=== PATIENT | male | born 1940 | race Caucasian/White ===

== ENCOUNTER → 2016-10-24 | Outpatient (CLI) | payer MEDICARE ==
--- NOTE | 2016-10-24 14:25 | CT ---
EXAMINATION TYPE: CT abdomen wo con DATE OF EXAM: 10/24/2016 1:44 PM COMPARISON: NONE HISTORY: back pain CT DLP: 343.8 mGycm Automated exposure control for dose reduction was used. TECHNIQUE: Helical acquisition of images was performed from the lung bases through the top of iliac crest to include entire abdomen. CONTRAST: Performed with Oral Contrast and without IV contrast. FINDINGS: LUNG BASES: Calcifications present at the left lung base likely representing granulomas. Parenchymal band present in the right lower lobe. Some minimal dependent atelectatic change. Calcification presen t at the aortic root. No pleural or pericardial effusion. There is likely mitral annular calcificatio n. LIVER/GB: There is no focal mass within the liver. Gallbladder shows some dependent high density with in the neck possibly representing stones. PANCREAS: No significant abnormality is seen. SPLEEN: No significant abnormality is seen. ADRENALS: No significant abnormality is seen. KIDNEYS: No significant abnormality is seen. BOWEL: No significant abnormality is seen. OSSEOUS STRUCTURES: Patient shows posterior fusion change at L4-5 S1, there is artifact due to patie nt's transpedicular screws, there are laminectomies present. Suspect there may be some spinal stenosi s at L3-4. Multilevel spondylosis is present, loss of disc height present at L5-S1, L3-4. Vacuum phen omenon present at L3-4, L2-3. FREE AIR: No Free Air visible ASCITES: None visible. RETROPERITONEAL ADENOPATHY: No Retroperitoneal Adenopathy visible. OTHER: IMPRESSION: POSTOP CHANGES. POSSIBLE SPINAL STENOSIS L3-4. DEGENERATIVE DISC DISEASE. NONCONTRAST EXAM.
== END ==
LOC: RADCTMAIN 12:44
PROVIDERS: ATTEND Family Medicine
DX: R10.9 Unspecified abdominal pain (principal)
CPT/HCPCS: 74150

== ENCOUNTER 2016-11-11 12:11 | Emergency (ER) | payer MEDICARE ==
[2016-11-11 13:07] VITALS: TEMP 98.1
[2016-11-11] MEDS ORDERED: HYDROmorphone 1 MG/ML 1 ML SYRINGE IVP STA ×2 (13:17→14:47)
[2016-11-11] MEDS ORDERED: SODIUM CHLORIDE 0.9% 500 ML IV STA (13:17)
--- NOTE | 2016-11-11 13:24 | ED ---
Back Pain HPI - General Chief Complaint: Back Pain/Injury Stated Complaint: Leg Pain Time Seen by Provider: 11/11/16 13:09 Source: patient, RN notes reviewed Limitations: no limitations - History of Present Illness Initial Comments: 76-year-old male presents to the emergency department with a chief complaint of back pain and leg pain. Patient states he is a diabetic. Patient states he has diabetic neuropathy. Patient states her last today she's had these constant pain to his bilateral lower extremity. Patient states he constantly feels as if he is being stung by bees to bilateral lower feet. Patient states that he took his diabetic medication but this does not seem to resolve the symptoms. Patient states she is also having low back pain. Patient states that in the center of his low back. Patient denies any loss of bowel or bladder function with this. Patient denies any fever or chills. Patient denies any cough cold and runny Nose. Patient states pain radiates into the neck. Patient states that this pain is just causing him For any problems like thought that he should be seen for pain control. Patient denies any nausea vomiting. Patient denies any changes in eating and drinking. Patient denies any other symptoms at this time. Patient denies any recent fever, chills, shortness of breath, chest pain, abdominal pain, nausea vomiting, numbness or tingling, dysuria or hematuria, constipation or diarrhea, headaches or visual changes, or any other current symptoms. - Related Data Home Medications Medication Instructions Recorded Confirmed Enalapril Maleate [Vasotec] 10 mg PO DAILY 09/02/15 11/11/16 Pregabalin [Lyrica] 300 mg PO BID 09/02/15 11/11/16 metFORMIN HCL [metFORMIN HCL ER] 1 tab PO BID 09/02/15 11/11/16 oxyCODONE-APAP 10-325MG [Percocet 1 tab PO Q8H PRN 09/02/15 11/11/16 10-325 mg] Amoxicillin/Potassium Clav 1 tab PO Q12HR 11/11/16 11/11/16 [Augmentin 875-125 Tablet] amLODIPine [Norvasc] 5 mg PO DAILY 11/11/16 11/11/16 Allergies Allergy/AdvReac Type Severity Reaction Status Date / Time No Known Allergies Allergy Verified 11/11/16 13:07 Review of Systems ROS Statement: Those systems with pertinent positive or pertinent negative responses have been documented in the HPI. ROS Other: All systems not noted in ROS Statement are negative. Past Medical History Past Medical History: CVA/TIA, Diabetes Mellitus, Hypertension Additional Past Medical History / Comment(s): Diabetic neuropathy chronic back pain History of Any Multi-Drug Resistant Organisms: None Reported Past Surgical History: Back Surgery Additional Past Surgical History / Comment(s): bilateral cataract removal with implants, right foot surgery Past Anesthesia/Blood Transfusion Reactions: No Reported Reaction Past Psychological History: No Psychological Hx Reported Smoking Status: Never smoker Past Alcohol Use History: None Reported Past Drug Use History: None Reported - Past Family History Mother Family Medical History: No Reported History Father Family Medical History: Cancer General Exam - General Exam Comments Initial Comments: General: The patient is awake and alert, in no distress, and does not appear acutely ill. Eye: Pupils are equal, round and reactive to light, extra-ocular movements are intact; there is normal conjunctiva bilaterally. No signs of icterus. Ears, nose, mouth and throat: There are moist mucous membranes. Neck: The neck is supple, there is no tenderness. Cardiovascular: There is a regular rate and rhythm. No murmur, rub or gallop is appreciated. Respiratory: Lungs are clear to auscultation, respirations are non-labored, breath sounds are equal. No wheezes, stridor, rales, or rhonchi. Gastrointestinal: Soft, non-distended, non-tender abdomen without masses or organomegaly noted. There is no rebound or guarding present. No CVA tenderness. Bowel sounds are unremarkable. Back: There is no tenderness to palpation in the midline. There is no obvious deformity. No rashes noted. Musculoskeletal: Normal ROM, no tenderness, There is no pedal edema. There is no calf tenderness or swelling. Sensation intact except for distal extremities due to neuropathy. Pulses equal bilaterally 2+. Neurological: CN II-XII intact, There are no obvious motor or sensory deficits. Coordination appears grossly intact. Speech is normal. Skin: Skin is warm and dry and no rashes or lesions are noted. Psychiatric: Cooperative, appropriate mood & affect, normal judgment. Limitations: no limitations Course Vital Signs 11/11/16 11/11/16 13:03 13:52 Temperature 98.1 F Pulse Rate 87 79 Respiratory 16 18 Rate Blood Pressure 139/78 123/64 O2 Sat by Pulse 96 94 L Oximetry Medical Decision Making - Medical Decision Making 76-year-old male presents to emergency room chief complaint of back pain. At this time the patient states that he is feeling better. Given another dose medication for the ride home. We did discuss his CAT scan did show lumbar stenosis. We discussed follow-up for this. We discussed return parameters and all the patient's questions. We discussed continuing at home medications. Patient stated that he understood the plan. He will be discharged. - Lab Data Result diagrams: 11/11/16 13:45 11/11/16 13:45 Lab Results 11/11/16 11/11/16 11/11/16 Range/Units 13:45 13:45 13:45 WBC 5.8 (3.8-10.6) k/uL RBC 4.62 (4.30-5.90) m/uL Hgb 14.9 (13.0-17.5) gm/dL Hct 44.5 (39.0-53.0) % MCV 96.3 (80.0-100.0) fL MCH 32.2 (25.0-35.0) pg MCHC 33.4 (31.0-37.0) g/dL RDW 14.4 (11.5-15.5) % Plt Count 137 L (150-450) k/uL Neutrophils % 68 % Lymphocytes % 16 % Monocytes % 9 % Eosinophils % 3 % Basophils % 0 % Neutrophils # 3.9 (1.3-7.7) k/uL Lymphocytes # 0.9 L (1.0-4.8) k/uL Monocytes # 0.5 (0-1.0) k/uL Eosinophils # 0.2 (0-0.7) k/uL Basophils # 0.0 (0-0.2) k/uL Sodium 140 (137-145) mmol/L Potassium 4.3 (3.5-5.1) mmol/L Chloride 105 (98-107) mmol/L Carbon Dioxide 25 (22-30) mmol/L Anion Gap 10 mmol/L BUN 9 (9-20) mg/dL Creatinine 0.57 L (0.66-1.25) mg/dL Est GFR (MDRD) Af Amer >60 (>60 ml/min/1.73 sqM) Est GFR (MDRD) Non-Af >60 (>60 ml/min/1.73 sqM) Glucose 194 H (74-99) mg/dL Calcium 9.9 (8.4-10.2) mg/dL Phosphorus 3.7 (2.5-4.5) mg/dL Magnesium 2.0 (1.6-2.3) mg/dL Total Bilirubin 0.9 (0.2-1.3) mg/dL AST 24 (17-59) U/L ALT 18 L (21-72) U/L Alkaline Phosphatase 83 (38-126) U/L Total Protein 7.2 (6.3-8.2) g/dL Albumin 4.1 (3.5-5.0) g/dL Urine Color Yellow Urine Appearance Clear (Clear) Urine pH 5.5 (5.0-8.0) Ur Specific [place] 1.012 (1.001-1.035) Urine Protein Negative (Negative) Urine Glucose (UA) Negative (Negative) Urine Ketones Negative (Negative) Urine Blood Negative (Negative) Urine Nitrite Negative (Negative) Urine Bilirubin Negative (Negative) Urine Urobilinogen <2.0 (<2.0) mg/dL Ur Leukocyte Esterase Negative (Negative) Disposition Clinical Impression: Lumbar stenosis Disposition: HOME SELF-CARE Condition: Stable Instructions: Chronic Back Pain (ED) Additional Instructions: Please use medication as discussed. Please follow up with family doctor if symptoms have not improved over the next two days. Please return to the emergency room if your symptoms increase or worsen or for any other concerns. Referrals: Be Velasquez DO [Primary Care Provider] - 1-2 days Time of Disposition: 14:48
[2016-11-11 13:54] VITALS: RESP 18
[2016-11-11 14:12] LABS: Basophils % (A) 0 %; CH 32.2; CHCM 33.7; Eosinophils # (A) 0.2 k/uL (0-0.7); Eosinophils % (A) 3 %; HCT 44.5 % (39.0-53.0); HDW 2.69; HGB 14.9 gm/dL (13.0-17.5); Luc # (Auto) 0.24; Luc % (Auto) 4; Lymphocytes # (A) 0.9 k/uL (1.0-4.8); Lymphocytes % (A) 16 %; MCH 32.2 pg (25.0-35.0); MCHC 33.4 g/dL (31.0-37.0); MCV 96.3 fL (80.0-100.0); Mean Platelet Volume 8.2; Monocytes # (A) 0.5 k/uL (0-1.0); Monocytes % (A) 9 %; Neutrophils # (A) 3.9 k/uL (1.3-7.7); Neutrophils % (A) 68 %; RBC 4.62 m/uL (4.30-5.90); RDW 14.4 % (11.5-15.5); WBC 5.8 k/uL (3.8-10.6)
[2016-11-11 14:14] LABS: Appearance,Urine Clear (Clear); Bilirubin,Urine Negative (Negative); Glucose,Urine (UA) Negative (Negative); Ketones,Urine Negative (Negative); Leukocyte Esterase,Urine Negative (Negative); Nitrite,Urine Negative (Negative); PH, Urine 5.5 (5.0-8.0); Protein,Urine Negative (Negative); Specific Gravity,Urine 1.012 (1.001-1.035); UA Billing (MACRO vs. MICRO) CHEM; Urobilinogen,Urine <2.0 mg/dL (<2.0)
[2016-11-11 14:27] LABS: ALT 18 U/L (21-72); AST 24 U/L (17-59); Alkaline Phosphatase 83 U/L (38-126); Anion Gap 10 mmol/L; Blood Urea Nitrogen 9 mg/dL (9-20); Calcium 9.9 mg/dL (8.4-10.2); Carbon Dioxide 25 mmol/L (22-30); Chloride 105 mmol/L (98-107); Glucose 194 mg/dL (74-99); Non-African American GFR(MDRD) >60 (>60 ml/min/1.73 sqM); Phosphorous 3.7 mg/dL (2.5-4.5); Potassium 4.3 mmol/L (3.5-5.1); Sodium 140 mmol/L (137-145); Total Bilirubin 0.9 mg/dL (0.2-1.3); Total Protein 7.2 g/dL (6.3-8.2)
[2016-11-11 15:24] VITALS: BP 135/65; PULSE 68
== END 2016-11-11 15:30 | disposition home or self-care (01) ==
LOC: EC 12:11
DX: M48.06 Spinal stenosis, lumbar region (principal); I10 Essential (primary) hypertension; E11.40 Type 2 diabetes mellitus with diabetic neuropathy, unspecified; Z79.84 Long term (current) use of oral hypoglycemic drugs; Z79.899 Other long term (current) drug therapy; Z98.890 Other specified postprocedural states
CPT/HCPCS: 99284; 96374; 96376; 36415; 80053; 83735; 84100; 85025; 81003; J1170

== ENCOUNTER 2016-12-09 12:04 | Emergency (ER) | payer MEDICARE ==
[2016-12-09 12:52] VITALS: RESP 20
--- NOTE | 2016-12-09 13:46 | ED ---
General Adult HPI - General Chief complaint: Back Pain/Injury Stated complaint: Back/Leg Pain Time Seen by Provider: 12/09/16 13:14 Source: patient, RN notes reviewed Mode of arrival: wheelchair Limitations: physical limitation - History of Present Illness Initial comments: Patient is a 76-year-old male significant past medical history for chronic back pain, who presents emergency room today with chief complaint of exacerbation of his chronic pain. Patient does admit that is been slowly increasing. He states same type pain and symptoms that he's had for a long time. Patient states that he has been following his family doctor. He states that he was told to arthritis round "hardware" that he hasn't his back. Patient states that he had back surgery any years ago. Patient does admit that he's been using Percocet at home for pain with little relief the symptoms lately. Patient does admit that the doctor gave her new prescription but has not come in yet. He is unsure what medication it is. Denies any bowel or bladder incontinence retention. Denies any saddle anesthesia. Patient denies any recent fever, chills, shortness of breath, chest pain, abdominal pain, nausea or vomiting, dysuria or hematuria, constipation or diarrhea, headaches or visual changes, or any other complaints. - Related Data Home Medications Medication Instructions Recorded Confirmed Pregabalin [Lyrica] 300 mg PO BID 09/02/15 12/09/16 oxyCODONE-APAP 10-325MG [Percocet 1 tab PO Q8H PRN 09/02/15 12/09/16 10-325 mg] amLODIPine [Norvasc] 5 mg PO DAILY 11/11/16 12/09/16 Aspirin [Adult Low Dose Aspirin EC] 81 mg PO DAILY 12/08/16 12/09/16 Enalapril Maleate [Vasotec] 5 mg PO DAILY 12/08/16 12/09/16 metFORMIN HCL [Glucophage] 500 mg PO BID 12/08/16 12/09/16 Allergies Allergy/AdvReac Type Severity Reaction Status Date / Time No Known Allergies Allergy Verified 12/09/16 13:37 Review of Systems ROS Statement: Those systems with pertinent positive or pertinent negative responses have been documented in the HPI. ROS Other: All systems not noted in ROS Statement are negative. Past Medical History Past Medical History: CVA/TIA, Diabetes Mellitus, Hypertension Additional Past Medical History / Comment(s): Diabetic neuropathy chronic back pain History of Any Multi-Drug Resistant Organisms: None Reported Past Surgical History: Back Surgery Additional Past Surgical History / Comment(s): bilateral cataract removal with implants, right foot surgery Past Anesthesia/Blood Transfusion Reactions: No Reported Reaction Past Psychological History: No Psychological Hx Reported Smoking Status: Never smoker Past Alcohol Use History: Daily Past Drug Use History: None Reported - Past Family History Mother Family Medical History: No Reported History Father Family Medical History: Cancer General Exam - General Exam Comments Initial Comments: General: The patient is awake and alert, in no distress, and does not appear acutely ill. Eye: Pupils are equal, round and reactive to light, extra-ocular movements are intact. No nystagmus. There is normal conjunctiva bilaterally. No signs of icterus. Ears, nose, mouth and throat: There are moist mucous membranes and no oral lesions. Neck: The neck is supple, there is no tenderness or JVD. Cardiovascular: There is a regular rate and rhythm. No murmur, rub or gallop is appreciated. Respiratory: Lungs are clear to auscultation, respirations are non-labored, breath sounds are equal. No wheezes, stridor, rales, or rhonchi. Gastrointestinal: Soft, non-distended, non-tender abdomen without masses or organomegaly noted. There is no rebound or guarding present. No CVA tenderness. Bowel sounds are unremarkable. Musculoskeletal: Normal ROM, no tenderness. Strength 5/5. Sensation intact. Pulses equal bilaterally 2+. Neurological: A&O x 3. CN II-XII intact, There are no obvious motor or sensory deficits. Coordination appears grossly intact. Speech is normal. Skin: Skin is warm and dry and no rashes or lesions are noted. Psychiatric: Cooperative, appropriate mood & affect, normal judgment. Limitations: physical limitation Course Vital Signs 12/09/16 12:49 Temperature 98.6 F Pulse Rate 73 Respiratory 20 Rate Blood Pressure 124/60 O2 Sat by Pulse 96 Oximetry Medical Decision Making - Medical Decision Making Patient was reviewed are negative for any acute abnormalities. Patient does admit that his chronic pain with no new injury or symptoms today. He states it' s been getting worse. Does use Percocet at home with little relief. Currently at this time. States been following the family doctor did prescribe the medication has not come in yet. Patient was given Lidoderm patch similar symptoms. Shot of Dilaudid discharged home advised follow-up family doctor later this week. Advised return if any symptoms increase or worsen or for any other concerns. She states understanding and is in agreement. Disposition Clinical Impression: Acute exacerbation of chronic low back pain Disposition: HOME SELF-CARE Condition: Good Instructions: Chronic Back Pain (ED) Additional Instructions: Please use medication as discussed. Please follow-up with family doctor in the next 2 days of symptoms have not improved. Please return to emergency room if the symptoms increase or worsen or for any other concerns. Time of Disposition: 14:38
[2016-12-09] MEDS ORDERED: LIDOCAINE 5% PATCH TOPICAL STA (13:52)
--- NOTE | 2016-12-09 14:30 | XR ---
EXAMINATION TYPE: XR lumbar spine 2 or 3V DATE OF EXAM: 12/09/2016 2:07 PM COMPARISON: NONE HISTORY: Pain low back TECHNIQUE: Three-view lumbar spine FINDINGS: Pedicle screws are present L4-L5 and S1. Degenerative disc changes are present L3-4 L2-3. V ertebral body heights are preserved. Alignment is straightened. Vascular calcification is within the aorta. IMPRESSION: 1. Postsurgical changes within the lower lumbar spine. 2. Degenerative disc changes especially noted L3-4.
[2016-12-09] MEDS ORDERED: HYDROmorphone 1 MG/ML 1 ML SYRINGE IM STA (14:39)
[2016-12-09 15:17] VITALS: BP 132/70; PULSE 80; TEMP 97.8
== END 2016-12-09 15:17 | disposition home or self-care (01) ==
LOC: EC 12:04
DX: G89.29 Other chronic pain (principal); M54.5 Low back pain; I10 Essential (primary) hypertension; E11.40 Type 2 diabetes mellitus with diabetic neuropathy, unspecified; Z79.82 Long term (current) use of aspirin; Z79.84 Long term (current) use of oral hypoglycemic drugs; Z79.899 Other long term (current) drug therapy
CPT/HCPCS: 99283; 96372; 72100; J1170

== ENCOUNTER 2016-12-13 09:00 | Day surgery (SDC) | payer MEDICARE ==
[2016-12-08 14:40] VITALS: BMI 21.8
[~2016-12-13 09:00] MED LIST: LACTATED RINGERS 1,000 ML IV SCH; LIDOCAINE 1% 20 ML VIAL (10MG/ML) FOR IV START INTRADERMA PRN
[2016-12-13 09:39] VITALS: TEMP 97.7
[2016-12-13 09:45] LABS: Glucose,Whole Blood 115 mg/dL (75-99)
[2016-12-13] MEDS ORDERED: PROPOFOL 10 MG/ML 20 ML VIAL IV ONE (11:26)
--- NOTE | 2016-12-13 11:27 | P.GSHP ---
History of Present Illness H&P Date: 12/13/16 Chief Complaint: Dysphagia, GERD This is 76-year-old male referred from Dr. Be Estrada. Patient presents today for EGD. The patient's had problems with GERD and dysphagia. - Constitutional Constitutional: Reports as per HPI Past Medical History Past Medical History: CVA/TIA, Diabetes Mellitus, Hypertension Additional Past Medical History / Comment(s): Diabetic neuropathy chronic back pain History of Any Multi-Drug Resistant Organisms: None Reported Past Surgical History: Back Surgery Additional Past Surgical History / Comment(s): bilateral cataract removal with implants, right foot surgery Past Anesthesia/Blood Transfusion Reactions: No Reported Reaction Past Psychological History: No Psychological Hx Reported Smoking Status: Never smoker Past Alcohol Use History: Daily Past Drug Use History: None Reported - Past Family History Mother Family Medical History: No Reported History Father Family Medical History: Cancer Medications and Allergies Home Medications Medication Instructions Recorded Confirmed Type Pregabalin [Lyrica] 300 mg PO BID 09/02/15 12/13/16 History oxyCODONE-APAP 10-325MG [Percocet 1 tab PO Q8H PRN 09/02/15 12/13/16 History 10-325 mg] amLODIPine [Norvasc] 5 mg PO DAILY 11/11/16 12/13/16 History Aspirin [Adult Low Dose Aspirin EC] 81 mg PO DAILY 12/08/16 12/13/16 History Enalapril Maleate [Vasotec] 5 mg PO DAILY 12/08/16 12/13/16 History metFORMIN HCL [Glucophage] 500 mg PO BID 12/08/16 12/13/16 History Allergies Allergy/AdvReac Type Severity Reaction Status Date / Time No Known Allergies Allergy Verified 12/13/16 09:47 Surgical - Exam Vital Signs Temp Pulse Resp BP Pulse Ox 97.7 F 71 16 177/69 97 12/13/16 09:38 12/13/16 09:38 12/13/16 09:38 12/13/16 09:38 12/13/16 09:38 - General well developed, no distress - Eyes PERRL - ENT normal nares - Neck no masses - Respiratory normal expansion - Cardiovascular Rhythm: regular - Abdomen Abdomen: soft, non tender Results - Labs Abnormal Lab Results - Last 24 Hours (Table) 12/13/16 Range/Units 09:43 POC Glucose (mg/dL) 115 H (75-99) mg/dL Assessment and Plan Plan: GERD, indigestion. We'll perform EGD.
--- NOTE | 2016-12-13 11:37 | P.OP ---
Date of Procedure: 12/13/16 Preoperative Diagnosis: GERD Dysphagia Postoperative Diagnosis: Antral gastritis No evidence of hernia Mild esophagitis Procedure(s) Performed: EGD Anesthesia: MAC Surgeon: Saul Crane Pathology: other (Antral, esophagus) Condition: stable Disposition: PACU Description of Procedure: The patient's placed on the endoscopy table in the lateral position. He received IV sedation. The gastroscope some placed oropharynx passed into the esophagus and stomach. Scope was then placed through the pylorus. First and second portion of the duodenum appeared normal. Scope was then brought back the antrum and this appeared inflamed a biopsies performed. The scope was then retroflexed and the remainder of the stomach appeared normal. The hiatus was examined there is no evidence of a hiatal hernia. The GE junction was at 47. The distal esophagus appeared mildly inflamed a biopsies performed. The proximal esophagus appeared normal. Scope was withdrawn for patient.
[2016-12-13 12:05] VITALS: BP 153/73; PULSE 75; RESP 18
== END 2016-12-13 12:20 | disposition home or self-care (01) ==
LOC: ORWHC2ENDO 09:00
PROVIDERS: ATTEND Surgery
DX: K29.50 Unspecified chronic gastritis without bleeding (principal); B96.81 Helicobacter pylori [H. pylori] as the cause of diseases classified elsewhere; K20.0 Eosinophilic esophagitis; E11.40 Type 2 diabetes mellitus with diabetic neuropathy, unspecified; Z79.84 Long term (current) use of oral hypoglycemic drugs; I10 Essential (primary) hypertension; I69.354 Hemiplegia and hemiparesis following cerebral infarction affecting left non-dominant side; Z79.82 Long term (current) use of aspirin; Z79.899 Other long term (current) drug therapy
CPT/HCPCS: 88305; 88342; 43239; J2704

== ENCOUNTER 2017-02-28 11:50 | Day surgery (SDC) | payer MEDICARE ==
[2017-02-22 14:56] VITALS: BMI 21.8
[~2017-02-28 11:50] MED LIST changes: +HYDROmorphone 1 MG/ML 1 ML SYRINGE IVP PRN; +MIDAZOLAM 2 MG/2 ML VIAL IV PRN
[2017-02-28 13:13] VITALS: TEMP 97.8
[2017-02-28 13:21] LABS: Glucose,Whole Blood 134 mg/dL (75-99)
[2017-02-28] MEDS ORDERED: PROPOFOL 10 MG/ML 20 ML VIAL IV ONE (14:03)
[2017-02-28] MEDS ORDERED: LIDOCAINE 1% INJ 10MG/ML (20 ML MDV) ONE (14:03)
--- NOTE | 2017-02-28 14:03 | P.GSHP ---
History of Present Illness H&P Date: 02/28/17 Chief Complaint: Dysphagia, GERD This is a 68-year-old male referred from Dr. Be Estrada. Patient has safer EGD. He's had issues with dysphagia and GERD. Patient appears history of Ally esophagitis. Past Medical History Past Medical History: CVA/TIA, Diabetes Mellitus, Hypertension, Osteoarthritis ( OA) Additional Past Medical History / Comment(s): Diabetic neuropathy chronic back pain , SOME TROUBLE SWALLOING History of Any Multi-Drug Resistant Organisms: None Reported Past Surgical History: Back Surgery Additional Past Surgical History / Comment(s): bilateral cataract removal with implants, right foot surgery Past Anesthesia/Blood Transfusion Reactions: No Reported Reaction Smoking Status: Never smoker - Past Family History Mother Family Medical History: No Reported History Father Family Medical History: Cancer Sister(s) Family Medical History: Cancer Medications and Allergies Home Medications Medication Instructions Recorded Confirmed Type Pregabalin [Lyrica] 300 mg PO BID 09/02/15 02/28/17 History oxyCODONE-APAP 10-325MG [Percocet 1 tab PO Q8H PRN 09/02/15 02/28/17 History 10-325 mg] amLODIPine [Norvasc] 5 mg PO DAILY 11/11/16 02/28/17 History Aspirin [Adult Low Dose Aspirin EC] 81 mg PO DAILY 12/08/16 02/28/17 History Enalapril Maleate [Vasotec] 5 mg PO DAILY 12/08/16 02/28/17 History metFORMIN HCL [Glucophage] 500 mg PO BID 12/08/16 02/28/17 History Allergies Allergy/AdvReac Type Severity Reaction Status Date / Time No Known Allergies Allergy Verified 02/28/17 13:07 Surgical - Exam Vital Signs Temp Pulse Resp BP Pulse Ox 97.8 F 71 16 160/77 96 02/28/17 13:12 02/28/17 13:12 02/28/17 13:12 02/28/17 13:12 02/28/17 13:12 - General well developed, no distress - Eyes PERRL - ENT normal pinna - Neck no masses - Respiratory normal expansion - Cardiovascular Rhythm: regular - Abdomen Abdomen: soft, non tender Results - Labs Abnormal Lab Results - Last 24 Hours (Table) 02/28/17 Range/Units 13:16 POC Glucose (mg/dL) 134 H (75-99) mg/dL Assessment and Plan Plan: GERD, dysphagia. We'll perform EGD.
--- NOTE | 2017-02-28 14:12 | P.OP ---
Date of Procedure: 02/28/17 Preoperative Diagnosis: Dysphagia GERD Postoperative Diagnosis: Severe ally esophagitis Procedure(s) Performed: EGD Implants: Anesthesia: MAC Surgeon: Saul Crane Pathology: other (Esophagus) Condition: stable Disposition: PACU Indications for Procedure: Operative Findings: Description of Procedure: The patient's placed on the endoscopy table in the lateral position. He received IV sedation. The gastroscope some placed oropharynx passed in the esophagus within the esophagus there was a large amount of white esophagitis suggestive of Ally esophagitis. Entire esophagus was inspected with this white plaque he esophagitis. The scope was then placed in the stomach. The and then passed the pylorus. First portion duodenum appeared normal. Scope was then brought back and stomach and this appeared normal. Scope was unretroflexed there is no significant hiatal hernia. The GE junction was at 4 40 cm. The distal esophagus examined and there was this white fluffy esophagitis. A biopsies performed. Scope was then withdrawn in the entire esophagus appeared to have Ally esophagitis. Scope was withdrawn for patient.
[2017-02-28 14:50] VITALS: BP 170/86; PULSE 75; RESP 18
== END 2017-02-28 15:12 | disposition home or self-care (01) ==
LOC: ORWHC2ENDO 11:50
PROVIDERS: ATTEND Surgery
DX: K21.0 Gastro-esophageal reflux disease with esophagitis (principal); I10 Essential (primary) hypertension; M19.90 Unspecified osteoarthritis, unspecified site; E11.40 Type 2 diabetes mellitus with diabetic neuropathy, unspecified; M54.9 Dorsalgia, unspecified; G89.29 Other chronic pain; Z86.73 Personal history of transient ischemic attack (TIA), and cerebral infarction without residual deficits; Z79.84 Long term (current) use of oral hypoglycemic drugs; Z79.82 Long term (current) use of aspirin; Z79.899 Other long term (current) drug therapy
CPT/HCPCS: 88305; 43239; J2001; J2704

== ENCOUNTER 2017-05-08 12:21 | Inpatient (IN) | payer MEDICARE ==
--- NOTE | 2017-05-08 12:55 | ED ---
General Adult HPI - General Chief complaint: Chest Pain Stated complaint: Chest Pain Time Seen by Provider: 05/08/17 12:28 Source: patient, RN notes reviewed, old records reviewed Mode of arrival: wheelchair Limitations: no limitations, physical limitation - History of Present Illness Initial comments: This is a 68-year-old male to the ER for evaluation today. This patient presents for evaluation regarding chest pain, abdominal pain. Patient is epigastric right upper quadrant abdominal pain right-sided chest pain. Symptoms are worse when he takes a deep breath. He is mildly nauseous with no vomiting. No recent fevers. Patient has had some multiple falls recently complaining of pain in his back and left shoulder area. As well as his neck. Patient has had issues of breathing before although this time his breathing is much worse, patient denies history of smoking - Related Data Home Medications Medication Instructions Recorded Confirmed Pregabalin [Lyrica] 300 mg PO BID 09/02/15 05/08/17 oxyCODONE-APAP 10-325MG [Percocet 1 tab PO Q8H PRN 09/02/15 05/08/17 10-325 mg] amLODIPine [Norvasc] 5 mg PO DAILY 11/11/16 05/08/17 metFORMIN HCL [Glucophage] 500 mg PO BID 12/08/16 05/08/17 Enalapril [Vasotec] 10 mg PO DAILY 05/08/17 05/08/17 Allergies Allergy/AdvReac Type Severity Reaction Status Date / Time No Known Allergies Allergy Verified 05/08/17 13:41 Review of Systems ROS Statement: Those systems with pertinent positive or pertinent negative responses have been documented in the HPI. ROS Other: All systems not noted in ROS Statement are negative. Past Medical History Past Medical History: CVA/TIA, Diabetes Mellitus, Hypertension, Osteoarthritis ( OA) Additional Past Medical History / Comment(s): Diabetic neuropathy chronic back pain , SOME TROUBLE SWALLOING History of Any Multi-Drug Resistant Organisms: None Reported Past Surgical History: Back Surgery Additional Past Surgical History / Comment(s): bilateral cataract removal with implants, right foot surgery Past Anesthesia/Blood Transfusion Reactions: No Reported Reaction Past Psychological History: Depression Smoking Status: Never smoker Past Alcohol Use History: Daily Past Drug Use History: None Reported - Past Family History Mother Family Medical History: No Reported History Father Family Medical History: Cancer Sister(s) Family Medical History: Cancer General Exam Limitations: no limitations, physical limitation General appearance: alert, in no apparent distress Head exam: Present: atraumatic, normocephalic, normal inspection Eye exam: Present: normal appearance, PERRL, EOMI. Absent: scleral icterus, conjunctival injection, periorbital swelling ENT exam: Present: normal exam, mucous membranes moist Neck exam: Present: normal inspection. Absent: tenderness, meningismus, lymphadenopathy Respiratory exam: Present: normal lung sounds bilaterally. Absent: respiratory distress, wheezes, rales, rhonchi, stridor Cardiovascular Exam: Present: regular rate, normal rhythm, normal heart sounds. Absent: systolic murmur, diastolic murmur, rubs, gallop, clicks GI/Abdominal exam: Present: soft, normal bowel sounds. Absent: distended, tenderness, guarding, rebound, rigid Extremities exam: Present: normal inspection, full ROM, normal capillary refill. Absent: tenderness, pedal edema, joint swelling, calf tenderness Back exam: Present: normal inspection Neurological exam: Present: alert, oriented X3, CN II-XII intact Psychiatric exam: Present: normal affect, normal mood Skin exam: Present: warm, dry, intact, normal color. Absent: rash Course Vital Signs 05/08/17 05/08/17 12:23 13:18 Temperature 98.0 F Pulse Rate 84 78 Respiratory 22 18 Rate Blood Pressure 98/55 99/60 O2 Sat by Pulse 91 L 96 Oximetry EKG Findings - EKG Comments: EKG Findings:: EKG shows sinus rhythm rate of 80, NV 210, QRS 94, QTc 454 Medical Decision Making - Medical Decision Making 68 [facility] ER for evaluation of chest pain today, patient does have severe chest pain anterior noted to have elevated troponin, patient with cardiology there aware patient's elevated troponin - Lab Data Result diagrams: 05/08/17 12:42 05/08/17 12:42 Lab Results 05/08/17 05/08/17 05/08/17 Range/Units 12:42 12:42 12:42 WBC 6.6 (3.8-10.6) k/uL RBC 3.77 L (4.30-5.90) m/uL Hgb 12.3 L (13.0-17.5) gm/dL Hct 36.7 L (39.0-53.0) % MCV 97.3 (80.0-100.0) fL MCH 32.5 (25.0-35.0) pg MCHC 33.4 (31.0-37.0) g/dL RDW 13.8 (11.5-15.5) % Plt Count 216 (150-450) k/uL Neutrophils % (Manual) 71 % Lymphocytes % (Manual) 20 % Monocytes % (Manual) 8 % Eosinophils % (Manual) 1 % Neutrophils # (Manual) 4.69 (1.3-7.7) k/uL Lymphocytes # (Manual) 1.32 (1.0-4.8) k/uL Monocytes # (Manual) 0.53 (0-1.0) k/uL Eosinophils # (Manual) 0.07 (0-0.7) k/uL Nucleated RBCs 0 (0-0) /100 WBC Manual Slide Review Performed PT (9.0-12.0) sec INR (<1.2) APTT (22.0-30.0) sec Sodium 135 L (137-145) mmol/L Potassium 4.4 (3.5-5.1) mmol/L Chloride 104 (98-107) mmol/L Carbon Dioxide 22 (22-30) mmol/L Anion Gap 9 mmol/L BUN 8 L (9-20) mg/dL Creatinine 0.60 L (0.66-1.25) mg/dL Est GFR (MDRD) Af Amer >60 (>60 ml/min/1.73 sqM) Est GFR (MDRD) Non-Af >60 (>60 ml/min/1.73 sqM) Glucose 151 H (74-99) mg/dL Calcium 9.2 (8.4-10.2) mg/dL Magnesium 2.0 (1.6-2.3) mg/dL Total Bilirubin 0.7 (0.2-1.3) mg/dL AST 27 (17-59) U/L ALT 29 (21-72) U/L Alkaline Phosphatase 126 (38-126) U/L Total Creatine Kinase 111 (55-170) U/L CK-MB (CK-2) 6.4 H* (0.0-2.4) ng/mL CK-MB (CK-2) Rel Index 5.8 Troponin I 1.910 H* (0.000-0.034) ng/mL Total Protein 6.3 (6.3-8.2) g/dL Albumin 3.4 L (3.5-5.0) g/dL Lipase 14 L (23-300) U/L 05/08/17 Range/Units 12:42 WBC (3.8-10.6) k/uL RBC (4.30-5.90) m/uL Hgb (13.0-17.5) gm/dL Hct (39.0-53.0) % MCV (80.0-100.0) fL MCH (25.0-35.0) pg MCHC (31.0-37.0) g/dL RDW (11.5-15.5) % Plt Count (150-450) k/uL Neutrophils % (Manual) % Lymphocytes % (Manual) % Monocytes % (Manual) % Eosinophils % (Manual) % Neutrophils # (Manual) (1.3-7.7) k/uL Lymphocytes # (Manual) (1.0-4.8) k/uL Monocytes # (Manual) (0-1.0) k/uL Eosinophils # (Manual) (0-0.7) k/uL Nucleated RBCs (0-0) /100 WBC Manual Slide Review PT 11.1 (9.0-12.0) sec INR 1.1 (<1.2) APTT 26.1 (22.0-30.0) sec Sodium (137-145) mmol/L Potassium (3.5-5.1) mmol/L Chloride (98-107) mmol/L Carbon Dioxide (22-30) mmol/L Anion Gap mmol/L BUN (9-20) mg/dL Creatinine (0.66-1.25) mg/dL Est GFR (MDRD) Af Amer (>60 ml/min/1.73 sqM) Est GFR (MDRD) Non-Af (>60 ml/min/1.73 sqM) Glucose (74-99) mg/dL Calcium (8.4-10.2) mg/dL Magnesium (1.6-2.3) mg/dL Total Bilirubin (0.2-1.3) mg/dL AST (17-59) U/L ALT (21-72) U/L Alkaline Phosphatase (38-126) U/L Total Creatine Kinase (55-170) U/L CK-MB (CK-2) (0.0-2.4) ng/mL CK-MB (CK-2) Rel Index Troponin I (0.000-0.034) ng/mL Total Protein (6.3-8.2) g/dL Albumin (3.5-5.0) g/dL Lipase (23-300) U/L Critical Care Time Critical Care Time: Yes Total Critical Care Time: 31 Disposition Clinical Impression: Chest pain, NSTEMI (non-ST elevated myocardial infarction), CHF (congestive heart failure), Hypoxia Disposition: ADMITTED IP TO THIS [facility] Condition: Serious Referrals: Be Velasquez DO [Primary Care Provider] - 1-2 days
[2017-05-08] MEDS ORDERED: RX INFO: IV CONTRAST WAS GIVEN 1 EACH MISC MISCELLANE PRN ×2 (13:03→16:09)
[2017-05-08 13:05] LABS: INR 1.1 (<1.2); Partial Thromboplastin Time 26.1 sec (22.0-30.0); Prothrombin Time 11.1 sec (9.0-12.0)
[2017-05-08 13:07] LABS: ALT 29 U/L (21-72); AST 27 U/L (17-59); Alkaline Phosphatase 126 U/L (38-126); Anion Gap 9 mmol/L; Blood Urea Nitrogen 8 mg/dL (9-20); Calcium 9.2 mg/dL (8.4-10.2); Carbon Dioxide 22 mmol/L (22-30); Chloride 104 mmol/L (98-107); Glucose 151 mg/dL (74-99); Non-African American GFR(MDRD) >60 (>60 ml/min/1.73 sqM); Potassium 4.4 mmol/L (3.5-5.1); Sodium 135 mmol/L (137-145); Total Bilirubin 0.7 mg/dL (0.2-1.3); Total Protein 6.3 g/dL (6.3-8.2)
--- NOTE | 2017-05-08 13:11 | XR ---
EXAMINATION TYPE: XR chest 2V DATE OF EXAM: 05/08/2017 COMPARISON: NONE HISTORY: Chest pain and shortness of breath today TECHNIQUE: Frontal and lateral views of the chest are obtained. FINDINGS: There is suspicious right greater than left bibasilar opacity. Upper lungs are. Clear. The cardiac silhouette size is within normal limits without reflect thoracic aorta. The osseous struct ures are intact. IMPRESSION: Right greater than left bibasilar infiltrate and/or atelectasis and probable small bilat eral pleural effusions.
[2017-05-08 13:27] LABS: Aty Lym Flag Slight; CH 31.8; CHCM 32.8; HCT 36.7 % (39.0-53.0); HGB 12.3 gm/dL (13.0-17.5); MCH 32.5 pg (25.0-35.0); MCHC 33.4 g/dL (31.0-37.0); MCV 97.3 fL (80.0-100.0); Mean Platelet Volume 8.5; RBC 3.77 m/uL (4.30-5.90); RDW 13.8 % (11.5-15.5); WBC 6.6 k/uL (3.8-10.6); WBC (Perox) 6.73
[2017-05-08 13:33] LABS: Creatine Kinase MB 6.4 ng/mL (0.0-2.4); Troponin I 1.91 ng/mL (0.000-0.034)
[2017-05-08] MEDS ORDERED: ASPIRIN 81 MG PO STA (13:50)
[2017-05-08] MEDS ORDERED: HEPARIN SODIUM,PORCINE 5,000 UNIT/ML 1 ML VIAL IV PRN (13:50)
[2017-05-08] MEDS ORDERED: NITROGLYCERIN SL TABS 0.4 MG TAB SUBLINGUAL PRN ×2 (13:50→16:09)
[2017-05-08] MEDS ORDERED: HEPARIN SODIUM,PORCINE 5,000 UNIT/ML 1 ML VIAL IV ONE (13:50)
[2017-05-08 13:58] LABS: Add Differential Manual Differential
[2017-05-08] MEDS ORDERED: HEPARIN SODIUM,PORCINE/D5W PMX 25,000 UNIT in DEXTROSE/WATER 1 500ML.BAG IV SCH (14:00)
[2017-05-08 14:02] LABS: Manual Review Performed; Nucleated Red Blood Cells 0 /100 WBC (0-0); Total Cells Counted 100
[2017-05-08] MEDS: MORPHINE SULFATE 4 MG/ML SYRINGE IV PRN (14:03)
--- NOTE | 2017-05-08 14:14 | CT ---
EXAMINATION TYPE: CT cervical spine wo con DATE OF EXAM: 05/08/2017 COMPARISON: NONE HISTORY: Neck pain CT DLP: 898.46 mGycm. Automated Exposure Control for Dose Reduction was Utilized. TECHNIQUE: CT scan of the cervical spine is obtained without contrast, axial images are obtained, sa gittal and coronal reformatted images are also reviewed. FINDINGS: Cervical spine is visualized in its entirety from C1 through upper thoracic levels, demonst rates reversal of normal cervical curvature without evidence of acute fracture or dislocation. Preve rtebral soft tissue appears within normal limits. The C1-C2 articulation is within normal limits on the coronal images. There is marked narrowing of the atlantodental interval. There is moderate to severe spurring and dis c space narrowing from C4 to C5 through C6-C7 levels. There is multilevel spondylolisthesis with grad e 1 retrolisthesis of C4 on C5 and C5 on C6. There is grade 1 anterolisthesis of C7 on T1. There is s light levoconvex scoliotic curvature is seen. Review of axial images shows multilevel uncovertebral f acet degenerative changes contributing to multilevel bilateral neural foraminal narrowing. Thyroid gl and is within normal limits. Please refer to same day CT thorax report for complete details of the lung apices. There is moderate to severe calcified plaque in bilateral carotid bulbs noted. IMPRESSION: There is no acute fracture or dislocation evident in the cervical spine. Multilevel degen erative changes are noted as detailed above.
--- NOTE | 2017-05-08 14:18 | CT ---
EXAMINATION TYPE: CT angio chest DATE OF EXAM: 05/08/2017 COMPARISON: NONE HISTORY: SOB, chest pain CT DLP: 664.8 mGycm. Automated Exposure Control for Dose Reduction was Utilized. CONTRAST: CTA scan of the thorax is performed with IV Contrast, patient injected with 100 mL of Omnipaque 350, pulmonary embolism protocol. MIP Images are created on CT scanner and reviewed. FINDINGS: LUNGS: There are fairly moderate sized bilateral pleural effusions. There is associated compressive a telectasis in both lung bases. Central opacity bilaterally suggest mild underlying alveolar edema. No suspicious parenchymal masses are identified. No pneumothorax is seen bilaterally. There is mild luis tral peribronchial wall thickening MEDIASTINUM: There is satisfactory enhancement of the pulmonary artery and its branches, there is no CT evidence for pulmonary embolism. There are no greater than 1 cm hilar or mediastinal lymph nodes. No cardiomegaly or significant pericardial effusion is seen. Tiny pericardial effusion is seen ant eriorly axial image 1:15. There is prominent coronary artery calcification in the left main and LAD s een on axial image 94. Ascending aorta measures 3.9 cm diameter on axial image 81. OTHER: There is mild to moderate multilevel spurring in the thoracic spine. Please refer to same day CT abdomen report for complete details of the upper abdomen IMPRESSION: 1. No CT evidence for pulmonary embolism. 2. Fairly moderate size bilateral pleural effusions with mild central opacity or alveolar edema sugge sts fluid overload state. Clinical correlation advised. 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
--- NOTE | 2017-05-08 14:23 | CT ---
EXAMINATION TYPE: CT abdomen pelvis w con DATE OF EXAM: 05/08/2017 COMPARISON: CT abdomen October 24, 2016 HISTORY: Generalized pain per order. CT DLP: 1530.9 mGycm, Automated Exposure Control for Dose Reduction was Utilized. CONTRAST: CT scan of the abdomen and pelvis is performed without oral but with IV Contrast, patient injected wi th 100 mL of Omnipaque 350. FINDINGS: LUNG BASES: Please refer to same day CTA chest report for complete details of the lower thorax. LIVER/GB: Dependent small density is in gallbladder are suspicious for small stones. PANCREAS: No significant abnormality is seen. SPLEEN: No significant abnormality is seen. ADRENALS: No significant abnormality is seen. KIDNEYS: No significant abnormality is seen. BOWEL: No additional smaller large bowel dilatation PROSTATE/SEMINAL VESICLES: Few scattered pelvic phleboliths are seen. LYMPH NODES: No greater than 1cm abdominal or pelvic lymph nodes are appreciated. OSSEOUS STRUCTURES: No osseous structures are demineralized. There is postsurgical change in lower l umbar levels with posterior fusion hardware. There is bilateral laminectomy defects and spinous proce ss resection. There is moderate to severe spurring and disc space narrowing with vacuum disc phenomen on at L3-L4 level. Artificial disc material is felt present anteriorly L5-S1 level. There is symmetri c elongation of the acetabulum with mild to moderate axial joint space loss in both hips. OTHER: There is moderate to severe vascular calcification of aorta extending into pelvic branch vesse ls. Calcification of the tunica in the penis is seen. There is stable small fat-containing left ingui nal hernia. IMPRESSION: No significant acute finding is seen to account for patient's clinical symptoms.
[2017-05-08] MEDS ORDERED: SODIUM CHLORIDE 0.9% 1,000 ML IV ONE (15:20)
[2017-05-08] MEDS ORDERED: fentaNYL (PF) 50 MCG/ML 2 ML AMP ONE (15:26)
[2017-05-08] MEDS ORDERED: LIDOCAINE 2% INJ 20 MG/ML IV ONE (15:26)
[2017-05-08] MEDS ORDERED: fentaNYL (PF) 50 MCG/ML 2 ML AMP IV ONE (15:31)
[2017-05-08] MEDS ORDERED: CLOPIDOGREL 75 MG TAB ONE ×2 (15:33)
[2017-05-08] MEDS ORDERED: CLOPIDOGREL 75 MG TAB PO ONE ×2 (15:35→15:51)
[2017-05-08] MEDS ORDERED: BIVALIRUDIN BOLUS 250 MG/50 ML IV ONE (15:35)
[2017-05-08] MEDS ORDERED: BIVALIRUDIN 250 MG in SODIUM CHLORIDE 0.9% 50 ML IV ONE (15:36)
[2017-05-08] MEDS ORDERED: NITROGLYCERIN 1000MCG/10ML SYRINGE INTRACORON ONE (15:42)
[2017-05-08] MEDS ORDERED: IOHEXOL 350 MG/ML 125ML BOTTLE INJ ONE (15:51)
[2017-05-08] MEDS ORDERED: MAG HYDROX/AL HYDROX/SIMETH 30 ML CUP PO PRN (16:09)
[2017-05-08] MEDS ORDERED: ATROPINE SULFATE 0.1 MG/ML 10ML SYRINGE IV PRN (16:09)
[2017-05-08] MEDS ORDERED: ZOLPIDEM 5 MG TAB PO PRN (16:09)
[2017-05-08] MEDS ORDERED: SODIUM CHLORIDE 0.9% 1,000 ML IV SCH (16:15)
[2017-05-08 16:39] LABS: Glucose,Whole Blood 103 mg/dL (75-99)
[2017-05-08] MEDS: SPIRONOLACTONE 25 MG TAB PO SCH (17:43)
[2017-05-08 19:46] LABS: Creatine Kinase MB 7.8 ng/mL (0.0-2.4); Troponin I 4.36 ng/mL (0.000-0.034)
[2017-05-08] MEDS: oxyCODONE-APAP 10-325MG 1 EACH TAB PO PRN (20:04)
--- NOTE | 2017-05-08 20:36 | CONS ---
CONSULTATION Mr. Borjas is a 76-year-old male, longstanding history of diabetes, history of hypertension and chronic alcohol intake, who presented to the emergency room with symptoms of lower chest discomfort and dyspnea. He has been having this discomfort on and off for 6 months, worse yesterday. The patient is not active physically. He had a prior history of stroke but no history of coronary artery disease. He denies any recent cardiac workup. He is limited in his physical activity and relates that to his history of neuropathy. He denies any palpitation or syncope. No clear PND or orthopnea. He has peripheral edema, more on the left side which is the side of his prior stroke. His coronary risk factors are noted for hypertension and diabetes and his lipid profile is not available. He is a nonsmoker. MEDICATION: Include: 1. Oxycodone on a p.r.n. basis. 2. Metformin 500 mg twice a day. 3. Amlodipine 5 mg daily. 4. Lyrica of 300 mg twice a day. 5. Enalapril 10 mg daily. REVIEW OF SYSTEMS: RESPIRATORY system: He has dyspnea on exertion. No recent wheezing or cough. GI system: No recent GI bleeding. No peptic ulcer disease. system: No dysuria or hematuria. Nervous system: He had a prior history of a stroke. SOCIAL HISTORY: He drinks alcohol on a daily basis at least 6 beers. PHYSICAL EXAMINATION: 76-year-old male, alert, oriented, in no apparent distress. Blood pressure 109/60 with a heart rate in the 80s. HEAD: Normocephalic. Eyes sclerae anicteric. Neck unable to appreciate jugular venous distention. LUNGS: With few crackles at the bases. Heart: Regular rate and rhythm, S1, S2. No S3 with systolic murmur at the base. No diastolic murmur. No rub. ABDOMEN: Soft, distended. Positive bowel sounds. No organomegaly. Extremities are +1 edema on the left side and trace on the right side. LAB DATA: Revealed a BUN creatinine of 8 and 0.6, ALT of 27, AST 29, and troponin of 1.9. Hemoglobin of 12.3. EKG revealed a sinus mechanism with QRS pattern in the anterior wall and mild ST- segment elevation. Chest x-ray revealed small effusion with mild infiltrate. He underwent a CT angiogram of the chest revealed no evidence of pulmonary embolism with bilateral pleural effusion with 3.9 aneurysmal changes of the ascending aorta. Cervical spine revealed no evidence of fracture. Abdominal CT showed moderate severe vascular calcification of the aorta. IMPRESSION: 1. Myocardial infarction probably started yesterday. Patient has QRS pattern in the anterior leads, has continued to have chest discomfort. 2. Symptoms of dyspnea with possible heart failure. 3. History of chronic alcohol intake. 4. History of diabetes. 5. History of hypertension. 6. Peripheral neuropathy. RECOMMENDATION: I had a long discussion with the patient and his family regarding the option including cardiac catheterization versus clinical observation, both options advantage and disadvantages were discussed with him. The patient is in agreement to proceed with cardiac catheterization. Depending on the results of testing, further recommendation will be made. Thank you for this consult. We will follow with you. CHATA / YANELISN: [id number] /
[2017-05-08] MEDS: PREGABALIN 100 MG CAP PO SCH (20:57)
--- NOTE | 2017-05-08 21:27 | CC ---
CARDIAC CATHETERIZATION REPORT Mr. Borjas is a 76-year-old male with a long-standing history of diabetes, history of hypertension, who presented with symptoms of chest discomfort that started yesterday. His EKG was consistent with an anterior wall myocardial infarction with a QS pattern in the anterior wall. In view of that, recommendation made regarding cardiac catheterization. The procedure, risks, benefits and complication were discussed with the patient, who is in full understanding and agreement. PROCEDURE: Patient was brought to nitriles lab technician in a fasting state after receiving fentanyl and Benadryl and achieving moderate conscious sedated state. He was draped and prepped in conventional fashion. Using Xylocaine anesthesia and Seldinger technique, a 6-Spanish sheath was introduced in the right femoral artery. Selective right and left angiography performed using 6-Spanish 4 bend right Helga catheter. Multiple views of the coronary artery, including hemiaxial views, were removed. Images were reviewed. FINDINGS: Fluoroscopy: There was severe calcification involving the left anterior descending artery and the left main. : This is a short size vessel bifurcating into left circumflex, left anterior descending artery. Left main coronary artery has no evidence of high-grade stenosis. Left anterior artery: This vessel is totally occluded proximally at the takeoff of the 1st septal industrial electrical engineer with minimal antegrade flow. Left circumflex: This is a large nondominant vessel giving rise to 2 large obtuse marginal branches. The left circumflex has no evidence of high-grade stenosis. Right coronary artery: This is a large dominant vessel bifurcating distally into PDA and posterolateral segment and branches. The right coronary artery has no evidence of high-grade stenosis. There are faint collaterals through the septal industrial electrical engineer to the LAD. Left ventriculogram: Left ventriculogram is not performed. CONCLUSION: 1. Acutely occluded proximal left anterior descending. 2. Heavily calcified left anterior descending and left main. RECOMMENDATION: In view of finding on anatomy, I have recommend proceeding with angioplasty and stenting of the LAD. The procedure, risks, benefits and complication were discussed with the patient, who is in full understanding and agreement. MMODL / IJN: [id number] /
[2017-05-08] MEDS ORDERED: FLUTICASONE 50MCG/SPRAY NASAL 16GM EA NOSTRIL PRN (21:37)
[2017-05-08] MEDS: LISINOPRIL 2.5 MG TAB PO SCH (21:38)
[2017-05-08] MEDS: ATORVASTATIN 80 MG TAB PO SCH (21:38)
[2017-05-08] MEDS: FUROSEMIDE 20 MG TAB PO SCH (21:38)
[2017-05-08] MEDS: METOPROLOL TARTRATE 25 MG TAB PO SCH (21:38)
[2017-05-09 01:48] LABS: Troponin I 3.37 ng/mL (0.000-0.034)
[2017-05-09] MEDS: oxyCODONE-APAP 10-325MG 1 EACH TAB PO PRN ×3 (03:54→21:11)
[2017-05-09 04:47] LABS: Anion Gap 9 mmol/L; Blood Urea Nitrogen 9 mg/dL (9-20); Calcium 9.3 mg/dL (8.4-10.2); Carbon Dioxide 24 mmol/L (22-30); Chloride 101 mmol/L (98-107); Cholesterol 134 mg/dL (<200); Glucose 128 mg/dL (74-99); HDL Cholesterol 47 mg/dL (40-60); Non-African American GFR(MDRD) >60 (>60 ml/min/1.73 sqM); Potassium 4.3 mmol/L (3.5-5.1); Sodium 134 mmol/L (137-145)
[2017-05-09 05:10] LABS: Aty Lym Flag Slight; CH 31.6; CHCM 31.6; HCT 37.4 % (39.0-53.0); HDW 2.67; HGB 12.1 gm/dL (13.0-17.5); Hypochromasia Slight; MCH 32.7 pg (25.0-35.0); MCHC 32.4 g/dL (31.0-37.0); MCV 100.9 fL (80.0-100.0); Macrocytosis Slight; Mean Platelet Volume 8.5; WBC 7.4 k/uL (3.8-10.6); WBC (Perox) 7.97
[2017-05-09 07:58] LABS: Glucose,Whole Blood 122 mg/dL (75-99)
[2017-05-09] MEDS: INSULIN LISPRO (humaLOG) 300 UNIT/3 ML VIAL SQ SCH ×4 (07:59→22:25)
[2017-05-09] MEDS: PANTOPRAZOLE 40 MG TABLET PO SCH (08:09)
[2017-05-09] MEDS ORDERED: LORazepam 2 MG/ML INJ IV PRN ×3 (08:17)
[2017-05-09 08:31] LABS: Add Differential Manual Differential
[2017-05-09 08:33] LABS: Manual Review Performed; Nucleated Red Blood Cells 0 /100 WBC (0-0); Total Cells Counted 100
--- NOTE | 2017-05-09 08:34 | PN ---
PROGRESS NOTE Mr. Borjas is a 76-year-old male who presented with an acute myocardial infarction with chest discomfort, underwent cardiac catheterization, was found to have totally occluded proximal LAD and underwent stenting of that vessel. He is doing better today. He has no chest pain. His breathing is better. He denies any dizziness palpitation. He denies any nausea. He has continued to be in sinus mechanism with no evidence of tachy or amarilis arrhythmia. He continues to be on aspirin once a day, Plavix 75 mg daily, Lasix 20 mg twice a day, Zestril 2.5 mg twice a day, metoprolol tartrate 25 mg twice a day and spironolactone 25 mg daily. PHYSICAL EXAMINATION: Blood pressure 105/60 with the heart rate in the 70s. LUNGS: No wheezes or rales. HEART: Regular rate and rhythm. S1, S2. No S3 with systolic murmur at the base 2/6. No diastolic murmur. ABDOMEN: Soft, obese, nontender. EXTREMITIES: Traced edema on the left side. RIGHT GROIN: No hematoma. LAB DATA: Lab data revealed BUN and creatinine 9 and 0.6. His peak troponin is 4.36. His EKG revealed sinus mechanism with QS in the anterior leads with persistent ST elevation. His hemoglobin is 12.1. IMPRESSION: 1. Status post anterior wall myocardial infarction with stenting of the left anterior descending artery. 2. History of chronic alcohol intake. 3. History of diabetes. 4. Hypertension. 5. Peripheral neuropathy. RECOMMENDATION: Patient will be continued on present therapy. His level of activity will be increased. He will be transferred to the telemetry floor. He will be placed on DTs protocol. Depending on his progress, further recommendation will be made. MMODL / IJN: [id number] / MTDD
--- NOTE | 2017-05-09 08:40 | LTR ---
May 08, [address] Velasquez: I had the pleasure of performing cardiac catheterization and coronary angioplasty and stenting on Mr. Borjas at [facility] on May 08 and full copy of procedure note will be forwarded to you. In brief, he was found to have a totally occluded proximal LAD and underwent successful stenting of that vessel using a drug-eluting stent. I am hopeful that this procedure will stabilize his status. Thank you again for allowing me to participate in his care. Please feel free to call for any questions. Sincerely, MMMELISAL / IJN: [id number] /
[2017-05-09] MEDS: FUROSEMIDE 20 MG TAB PO SCH ×2 (08:51→20:52)
[2017-05-09] MEDS: LISINOPRIL 2.5 MG TAB PO SCH ×2 (08:52→20:52)
[2017-05-09] MEDS: METOPROLOL TARTRATE 25 MG TAB PO SCH ×2 (08:52→20:52)
[2017-05-09] MEDS: ASPIRIN 81 MG PO SCH (08:53)
[2017-05-09] MEDS: SPIRONOLACTONE 25 MG TAB PO SCH (08:53)
[2017-05-09] MEDS: PREGABALIN 100 MG CAP PO SCH ×2 (08:56→20:55)
[2017-05-09] MEDS ORDERED: ASPIRIN 325 MG TAB PO SCH (09:00)
--- NOTE | 2017-05-09 09:40 | PTCA ---
PERCUTANEOUSTRANS CORORONARY ANGIOGRAPHY Mr. Borjas is a 76-year-old male with a long-standing history of diabetes, history of hypertension, who presented with evidence of chest discomfort, evidence of anterior wall myocardial infarction with clear aspirin and mild elevation of the troponin. He underwent cardiac catheterization, was found to have a totally occluded proximal LAD. In view of that, recommendation made regarding cardiac catheterization the procedures risks and complication were discussed with the patient who is in full understanding and agreement. PROCEDURE: A 6-Bengali FR4 guiding catheter induced into the system. After cannulating the left main a 0.014 balanced medium weight J-wire was advanced across the lesion and positioned distally. Then a 2.5 x 12 mm Trek balloon was advanced and 2 inflations at maximum 10 atmosphere were done. Following that, the balloon was removed and a 2.5 x 18 mm Xience Alpine stent was deployed postdilated to 16 atmospheres. After the last inflation, after appropriate wait the balloon the balloon and guidewire withdrawn back in the guiding catheter. Images were obtained repeated. Those images reveal stable successful stenting. At that point, the guiding catheter, the balloon and the guidewire were removed. The sheath was removed. Hemostasis was obtained with deployment of an Angio-Seal. There was no immediate complication. The patient was returned to his room in stable condition. Of note, the patient symptoms of chest discomfort resulted in the procedure. He received Angiomax per protocol as well as oral loading dose of clopidogrel. RESULTS: Successful stenting of the proximal LAD with reduction of stenosis from 100% to 0% in a heavily calcified segment. RECOMMENDATION: Patient will be continued on aspirin, Plavix, beta blockers, BRITTANY inhibitors, and statin. The importance of dual antiplatelet treatment were discussed with the patient and his family who are in full understanding and agreement. DURATION OF THE PROCEDURE: 23 minutes MMODL / IJN: [id number] /
[2017-05-09] MEDS: MORPHINE SULFATE 4 MG/ML SYRINGE IV PRN (10:20)
--- NOTE | 2017-05-09 10:21 | ECHOF ---
Referral Reason:mi MEASUREMENTS -------- HEIGHT: 188.0 cm WEIGHT: 74.8 kg BP: 105/61 RVIDd: 3.6 cm (< 3.3) IVSd: 1.4 cm (0.6 - 1.1) LVIDd: 4.9 cm (3.9 - 5.3) LVPWd: 1.2 cm (0.6 - 1.1) IVSs: 1.5 cm LVIDs: 3.4 cm LVPWs: 1.9 cm LA Diam: 3.6 cm (2.7 - 3.8) LAESV Index (A-L): 24.59 ml/m Ao Diam: 3.7 cm (2.0 - 3.7) AV Cusp: 1.2 cm (1.5 - 2.6) MV EXCURSION: 14.230 mm (> 18.000) MV EF SLOPE: 65 mm/s (70 - 150) EPSS: 1.0 cm MV E Espinoza: 0.97 m/s MV DecT: 142 ms MV A Espinoza: 0.68 m/s MV E/A Ratio: 1.44 AV maxP.68 mmHg AV meanP.04 mmHg AR PHT: 378 ms RAP: 5.00 mmHg RVSP: 52.00 mmHg FINDINGS -------- Sinus rhythm. This was a technically difficult study with suboptimal views. The left ventricular size is normal. There is moderate concentric left ventricular hypertrophy. Overall left ventricular systolic function is severely impaired with, an EF between 25 - 30 %. Apical anterior LV wall motion is hypokinetic. Apical lateral LV wall motion is hypokinetic. The right ventricle is mildly enlarged. Normal LA size by volume 22+/-6 ml/m2. The right atrium is normal in size. 1.5mg of Definity was utilized for enhancement of images There is moderate aortic valve sclerosis. There is mild aortic regurgitation. There is moderate aortic stenosis present. Peak/mean gradient across the Aortic Valve is 32.68mmHg / 14.04mmHg. The mitral valve leaflets are mildly thickened. Moderate mitral annular calcification present. Mild mitral regurgitation is present. Mild tricuspid regurgitation present. There is moderate pulmonary hypertension. The right ventricular systolic pressure, as measured by Doppler, is 52.00mmHg. The pulmonic valve was not well visualized. The aortic root is dilated measuring 3.7cm. The inferior vena cava is mildly dilated. There is no pericardial effusion. CONCLUSIONS -------- 1. Sinus rhythm. 2. The right atrium is normal in size. 3. 1.5mg of Definity was utilized for enhancement of images 4. There is moderate aortic valve sclerosis. 5. There is mild aortic regurgitation. 6. There is moderate aortic stenosis present. 7. Peak/mean gradient across the Aortic Valve is 32.68mmHg / 14.04mmHg. 8. The mitral valve leaflets are mildly thickened. 9. Moderate mitral annular calcification present. 10. Mild mitral regurgitation is present. 11. Mild tricuspid regurgitation present. 12. This was a technically difficult study with suboptimal views. 13. There is moderate pulmonary hypertension. 14. The right ventricular systolic pressure, as measured by Doppler, is 52.00mmHg. 15. The pulmonic valve was not well visualized. 16. The aortic root is dilated measuring 3.7cm. 17. The inferior vena cava is mildly dilated. 18. There is no pericardial effusion. 19. The left ventricular size is normal. 20. There is moderate concentric left ventricular hypertrophy. 21. Overall left ventricular systolic function is severely impaired with, an EF between 25 - 30 %. 22. Apical anterior LV wall motion is hypokinetic. 23. Apical lateral LV wall motion is hypokinetic. 24. The right ventricle is mildly enlarged. 25. Normal LA size by volume 22+/-6 ml/m2. ELECTRONIC OPERATOR: Aspen Mendoza RDCS
--- NOTE | 2017-05-09 10:55 | CDI ---
In responding to this query, please exercise your independent professional judgment. The [facility] Coding Staff and Clinical Documentation Specialists appreciate your assistance in clarifying documentation, maintaining compliance with coding guidelines, accurately documenting patients condition and capturing severity of illness. The fact that a question is asked does not imply that any particular answer is desired or expected. Communication forms are a method of clarifying documentation and are not made part of the Legal Health Record. Thank you in advance for your clarification. Last Revision, October 2015 Rocky Bonds [address] [place] [address] Documentation Clarification Form Date: 05/09/2017 10:54:00 AM From: Payton Phelan, CCS, CCDS Admit Date: 05/08/2017 Patient Name: Naresh Borjas Visit Number: [id number] Discharge Date: Dr. Tushar Chan: CHF is documented in the 05/08 Cardiology Consult as: Symptoms of dyspnea with possible heart failure. History/Risk Factors: Hypertension, CVA, DM w/neuropathy, drinks alcohol daily not specified as abuse or dependent. Clinical Indicators: VS pre Heart Cath: P 84, R 22, BP 98/55, PO 91 ra/2Lnc VS post Heart Cath: P 83, R 20, BP 110/74, PO 92 4Lnc, 90 ra(?) LABS: CKMB: 6.4^, 7.8^, 7.0^. Troponin: 1.910^, 4.360^, 3.370^ RAD: CXR 05/08: Right > left bibasilar infiltrate and/or atelectasis & probable small bilateral pleural effusions. Treatment: po Lasix BID, IV Heparin, Aspirin, IV Ms, Nitro sl, IV Atropine Sulfate, Nitro sl, O2 2-4L In your professional opinion, can you please clarify the acuity and type of CHF if known? Systolic Heart Failure: Acute Chronic Acute on Chronic Diastolic Heart Failure: Acute Chronic Acute on Chronic Systolic & Diastolic Heart Failure: Acute Chronic Acute on Chronic Unable to determine Other, please specify Please document in your progress notes and discharge summary in order to capture severity of illness and risk of mortality. Include clinical findings that support your diagnosis. FYI: Press F11 to launch patient chart. ROLANDO
--- NOTE | 2017-05-09 10:58 | P.HPIM ---
History of Present Illness H&P Date: 05/09/17 Chief Complaint: Chest pain This is a 76 year old male who presented to the emergency room on 05-08-17 with a chief complaint of chest pain described as epigastric and also right side chest pain. He has a history of CVA/TIA, diabetes mellitus, hypertension, osteoarthritis, and alcohol abuse. Apparently the patient also had multiple falls recently he was complaining of pain in his back, neck, and left shoulder. A computed tomography scan of the abdomen and pelvis was completed which did not show any significant acute findings. CT of the chest was performed which did not show evidence of a pulmonary embolism. It did show fairly moderate size bilateral pleural effusions with mild central opacity or alveolar edema suggestive of fluid overload. Computed tomography scan of the cervical spine was completed which was negative for any acute fracture or dislocation. There was multilevel degenerative changes noted. His chest x-ray revealed right greater than left bibasilar infiltrates and/or atelectasis and probable small bilateral pleural effusions. The patient's troponins were elevated in the emergency room at 1.91. Cardiology was consulted. The patient was placed on a heparin drip which has since been discontinued. The patient underwent a cardiac catheterization which revealed an occluded proximal left anterior descending and heavily calcified left anterior descending and left main. The patient underwent angioplasty and a drug-eluting stent was placed in LAD. An echocardiogram was completed which shows an EF between 25 and 30%. It also shows atypical anterior and lateral LV wall motion that is hypokinetic. This morning, the patient states he is feeling well. He denies any chest pain or pressure. He denies shortness of breath. His oxygen saturation is 92% on 4L NC. He states he doesnt have much of an appetite this morning but he did have a few bites of his breakfast. He denies nausea or vomiting. His vital signs are stable. He has been afebrile. Lab work from this morning was reviewed. Review of Systems Those systems with pertinent positive or pertinent negative responses have been documented in the HPI Past Medical History Past Medical History: CVA/TIA, Diabetes Mellitus, Hypertension, Osteoarthritis ( OA) Additional Past Medical History / Comment(s): Diabetic neuropathy chronic back pain , SOME TROUBLE SWALLOING History of Any Multi-Drug Resistant Organisms: None Reported Past Surgical History: Back Surgery Additional Past Surgical History / Comment(s): bilateral cataract removal with implants, right foot surgery Past Anesthesia/Blood Transfusion Reactions: No Reported Reaction Past Psychological History: Depression Smoking Status: Never smoker Past Alcohol Use History: Daily Additional Past Alcohol Use History / Comment(s): 3 BEERS A DAY Past Drug Use History: None Reported - Past Family History Mother Family Medical History: No Reported History Father Family Medical History: Cancer Sister(s) Family Medical History: Cancer Medications and Allergies Home Medications Medication Instructions Recorded Confirmed Type Pregabalin [Lyrica] 300 mg PO BID 09/02/15 05/08/17 History oxyCODONE-APAP 10-325MG [Percocet 1 tab PO Q8H PRN 09/02/15 05/08/17 History 10-325 mg] amLODIPine [Norvasc] 5 mg PO DAILY 11/11/16 05/08/17 History metFORMIN HCL [Glucophage] 500 mg PO BID 12/08/16 05/08/17 History Enalapril [Vasotec] 10 mg PO DAILY 05/08/17 05/08/17 History Allergies Allergy/AdvReac Type Severity Reaction Status Date / Time No Known Allergies Allergy Verified 05/08/17 13:41 Physical Exam Vitals: Vital Signs Temp Pulse Resp BP BP Pulse Ox 05/09/17 09:00 97.9 F 83 20 110/74 90 L 05/09/17 08:00 81 12 110/74 05/09/17 07:00 72 11 L 105/63 92 L 05/09/17 06:00 67 11 L 105/61 92 L 05/09/17 05:00 67 13 102/60 92 L 05/09/17 04:00 97.8 F 71 13 104/63 92 L 05/09/17 03:00 71 21 102/61 92 L 05/09/17 02:00 65 15 103/65 94 L 05/09/17 01:00 64 19 97/61 94 L 05/09/17 00:00 98.0 F 62 16 96/58 91 L 05/08/17 23:39 64 17 99/62 90 L 05/08/17 23:00 69 11 L 103/65 94 L 05/08/17 22:00 86 18 105/71 92 L 05/08/17 21:00 84 15 107/66 94 L 05/08/17 20:00 97.6 F 64 26 H 102/71 92 L 05/08/17 19:00 85 28 H 100/66 90 L 05/08/17 18:50 86 34 H 100/66 92 L 05/08/17 18:40 83 17 97/65 91 L 05/08/17 18:30 86 38 H 91 L 05/08/17 18:20 86 25 H 93/61 92 L 05/08/17 18:10 86 15 93/61 93 L 05/08/17 18:00 92 42 H 93/61 93 L 05/08/17 17:54 94 L 05/08/17 17:50 88 14 93/61 93 L 05/08/17 17:40 86 24 93/61 92 L 05/08/17 17:30 90 33 H 93/61 92 L 05/08/17 17:24 97.9 F 05/08/17 17:20 92 21 107/66 92 L 05/08/17 17:10 97.9 F 90 56 H 101/64 89 L 05/08/17 17:00 84 17 101/64 93 L 05/08/17 16:50 87 50 H 100/68 91 L 05/08/17 16:40 87 21 89/54 91 L 05/08/17 16:30 128 H 24 89/54 90 L 05/08/17 16:27 24 05/08/17 16:24 92 L 05/08/17 16:09 98.1 F 24 100/66 93 L 05/08/17 15:18 98.0 F 86 18 109/64 94 L 05/08/17 14:56 86 18 109/64 94 L 05/08/17 13:18 78 18 99/60 96 05/08/17 12:23 98.0 F 84 22 98/55 91 L Intake and Output 05/08/17 05/09/17 05/09/17 22:59 06:59 14:59 Intake Total 1441.9 825 480 Output Total 100 400 0 Balance 1341.9 425 480 Intake: IV 1141.9 225 Sodium Chloride 0.9% 1, 225 225 000 ml @ 75 mls/hr IV . [id number] [facility] Rx#:[id number] Intake, IV Titration 300 Amount Sodium Chloride 0.9% 1, 300 000 ml @ 75 mls/hr IV . [id number] [facility] Rx#:[id number] Oral 600 480 Output: Urine 100 400 0 Other: Voiding Method Urinal Urinal Urinal Weight 74.9 kg 76.2 kg 76.2 kg Patient Weight 05/10/17 06:59 Weight 76.2 kg GENERAL: Alert and oriented. Appears in no acute distress. Pleasant. RESPIRATORY: Lungs clear bilaterally. No use of accessory muscles. Patient maintaining oxygen saturation greater than 92%. CARDIOVASCULAR: S1 and S2 noted. Rhythm regular. No JVD noted. EXTREMITIES: No edema noted. Palpable pedal pulses +2. ABDOMEN: No distention noted. Abdomen soft and round. Normal active bowel sounds auscultated 4 quadrants. No pain or tenderness noted upon palpation. Results CBC & Chem 7: 05/09/17 04:00 05/09/17 04:00 Labs: Abnormal Lab Results - Last 24 Hours (Table) 05/08/17 05/08/17 05/08/17 Range/Units 12:42 12:42 12:42 RBC 3.77 L (4.30-5.90) m/uL Hgb 12.3 L (13.0-17.5) gm/dL Hct 36.7 L (39.0-53.0) % MCV (80.0-100.0) fL Monocytes # (Manual) (0-1.0) k/uL APTT (22.0-30.0) sec Sodium 135 L (137-145) mmol/L BUN 8 L (9-20) mg/dL Creatinine 0.60 L (0.66-1.25) mg/dL Glucose 151 H (74-99) mg/dL POC Glucose (mg/dL) (75-99) mg/dL CK-MB (CK-2) 6.4 H* (0.0-2.4) ng/mL Troponin I 1.910 H* (0.000-0.034) ng/mL Albumin 3.4 L (3.5-5.0) g/dL Lipase 14 L (23-300) U/L 05/08/17 05/08/17 05/08/17 Range/Units 16:37 18:52 18:52 RBC (4.30-5.90) m/uL Hgb (13.0-17.5) gm/dL Hct (39.0-53.0) % MCV (80.0-100.0) fL Monocytes # (Manual) (0-1.0) k/uL APTT 46.5 H (22.0-30.0) sec Sodium (137-145) mmol/L BUN (9-20) mg/dL Creatinine (0.66-1.25) mg/dL Glucose (74-99) mg/dL POC Glucose (mg/dL) 103 H (75-99) mg/dL CK-MB (CK-2) 7.8 H* (0.0-2.4) ng/mL Troponin I 4.360 H* (0.000-0.034) ng/mL Albumin (3.5-5.0) g/dL Lipase (23-300) U/L 05/09/17 05/09/17 05/09/17 Range/Units 00:46 04:00 04:00 RBC 3.70 L (4.30-5.90) m/uL Hgb 12.1 L (13.0-17.5) gm/dL Hct 37.4 L (39.0-53.0) % MCV 100.9 H (80.0-100.0) fL Monocytes # (Manual) 1.04 H (0-1.0) k/uL APTT (22.0-30.0) sec Sodium 134 L (137-145) mmol/L BUN (9-20) mg/dL Creatinine 0.60 L (0.66-1.25) mg/dL Glucose 128 H (74-99) mg/dL POC Glucose (mg/dL) (75-99) mg/dL CK-MB (CK-2) 7.0 H* (0.0-2.4) ng/mL Troponin I 3.370 H* (0.000-0.034) ng/mL Albumin (3.5-5.0) g/dL Lipase (23-300) U/L 05/09/17 Range/Units 07:56 RBC (4.30-5.90) m/uL Hgb (13.0-17.5) gm/dL Hct (39.0-53.0) % MCV (80.0-100.0) fL Monocytes # (Manual) (0-1.0) k/uL APTT (22.0-30.0) sec Sodium (137-145) mmol/L BUN (9-20) mg/dL Creatinine (0.66-1.25) mg/dL Glucose (74-99) mg/dL POC Glucose (mg/dL) 122 H (75-99) mg/dL CK-MB (CK-2) (0.0-2.4) ng/mL Troponin I (0.000-0.034) ng/mL Albumin (3.5-5.0) g/dL Lipase (23-300) U/L Thrombosis Risk Factor Assmnt - Choose All That Apply Any of the Below Risk Factors Present?: Yes Each Factor Represents 1 point: Acute OK Thrombosis Risk Factor Assessment Total Risk Factor Score: 1 Thrombosis Risk Factor Assessment Level: Low Risk Assessment and Plan Plan: ASSESSMENT: -Chest pain, present on admission, secondary to NSTEMI -NSTEMI, present on admission, status post cardiac catheterization with angioplasty and drug-eluting stent to the LAD -Acute on chronic systolic congestive heart failure, echo shows EF of 25-30% -Acute hypoxic respiratory failure, requiring supplemental oxygen of 4L NC -Moderate-sized bilateral pleural effusions seen on CAT scan of the chest -Chronic alcohol use, patient drinks minimum of 3 beers a day -Essential hypertension -Diabetes mellitus, type II -Osteoarthritis PLAN: -[facility] -Consult pulmonary due to moderate size pleural effusions and supplemental oxygen requirements -Continue Lasix 20 mg by mouth twice a day -Cardiology on consult. Appreciate recommendations and input -Continue aspirin and Plavix per cardiology. -Resume home meds as appropriate -Monitor labs -GI prophylaxis: Protonix 40 mg by mouth daily -DVT prophylaxis: Heparin 5000 units subcu every 8 hours -Monitor for ETOH withdrawal. Patient on CIWA scale -Monitor vital signs and address as appropriate -Monitor capillary blood glucose -Continue Humalog sliding scale The above impression and plan of care have been discussed and directed by signing physician. Aixa Alarcon, nurse practitioner, acting as scribe for signing physician.
[2017-05-09 11:46] LABS: Glucose,Whole Blood 116 mg/dL (75-99)
[2017-05-09 12:31] LABS: Glucose,Whole Blood 128 mg/dL (75-99)
[2017-05-09] MEDS: MULTIVITAMINS, THERA 1 EACH TAB PO SCH (12:57)
[2017-05-09] MEDS: HEPARIN SODIUM,PORCINE 5,000 UNIT/ML 1 ML VIAL SQ SCH ×2 (16:51→23:50)
[2017-05-09] MEDS: CLOPIDOGREL 75 MG TAB PO SCH (16:51)
[2017-05-09] MEDS: THIAMINE 100 MG TAB PO SCH (16:51)
[2017-05-09 17:00] LABS: Glucose,Whole Blood 174 mg/dL (75-99)
[2017-05-09] MEDS: ATORVASTATIN 80 MG TAB PO SCH (20:52)
[2017-05-09 21:09] LABS: Glucose,Whole Blood 142 mg/dL (75-99)
[2017-05-10 06:04] LABS: Glucose,Whole Blood 104 mg/dL (75-99)
[2017-05-10] MEDS: INSULIN LISPRO (humaLOG) 300 UNIT/3 ML VIAL SQ SCH ×4 (06:13→21:22)
[2017-05-10] MEDS: oxyCODONE-APAP 10-325MG 1 EACH TAB PO PRN ×3 (06:13→21:23)
[2017-05-10] MEDS: PANTOPRAZOLE 40 MG TABLET PO SCH (06:14)
[2017-05-10 06:30] LABS: Basophils % (A) 0 %; CH 32.5; CHCM 33.1; Eosinophils # (A) 0.2 k/uL (0-0.7); Eosinophils % (A) 3 %; HCT 36.3 % (39.0-53.0); HGB 11.6 gm/dL (13.0-17.5); Luc # (Auto) 0.26; Luc % (Auto) 5; Lymphocytes # (A) 1.3 k/uL (1.0-4.8); Lymphocytes % (A) 22 %; MCH 31.5 pg (25.0-35.0); MCHC 31.9 g/dL (31.0-37.0); MCV 98.7 fL (80.0-100.0); Mean Platelet Volume 8.9; Monocytes # (A) 0.6 k/uL (0-1.0); Monocytes % (A) 10 %; Neutrophils # (A) 3.5 k/uL (1.3-7.7); Neutrophils % (A) 60 %; RBC 3.68 m/uL (4.30-5.90); RDW 14.7 % (11.5-15.5); WBC 5.8 k/uL (3.8-10.6); WBC (Perox) 6.28
[2017-05-10 06:38] LABS: Anion Gap 9 mmol/L; Blood Urea Nitrogen 11 mg/dL (9-20); Calcium 9.1 mg/dL (8.4-10.2); Carbon Dioxide 23 mmol/L (22-30); Chloride 100 mmol/L (98-107); Glucose 102 mg/dL (74-99); Non-African American GFR(MDRD) >60 (>60 ml/min/1.73 sqM); Potassium 3.9 mmol/L (3.5-5.1); Sodium 132 mmol/L (137-145)
[2017-05-10] MEDS: HEPARIN SODIUM,PORCINE 5,000 UNIT/ML 1 ML VIAL SQ SCH ×3 (08:00→23:33)
[2017-05-10] MEDS: PREGABALIN 100 MG CAP PO SCH ×2 (08:00→20:38)
[2017-05-10] MEDS: CLOPIDOGREL 75 MG TAB PO SCH ×2 (08:01→08:08)
[2017-05-10] MEDS: ASPIRIN 81 MG PO SCH (08:01)
[2017-05-10] MEDS: SPIRONOLACTONE 25 MG TAB PO SCH (08:01)
[2017-05-10] MEDS: METOPROLOL TARTRATE 25 MG TAB PO SCH ×2 (08:01→20:38)
[2017-05-10] MEDS: FUROSEMIDE 20 MG TAB PO SCH ×2 (08:01→20:37)
[2017-05-10] MEDS: LISINOPRIL 2.5 MG TAB PO SCH ×2 (08:01→20:37)
--- NOTE | 2017-05-10 08:54 | P.PN ---
Subjective Progress Note Date: 05/10/17 05/09/2017 This is a 76 year old male who presented to the emergency room on 05-08-17 with a chief complaint of chest pain described as epigastric and also right side chest pain. He has a history of CVA/TIA, diabetes mellitus, hypertension, osteoarthritis, and alcohol abuse. Apparently the patient also had multiple falls recently he was complaining of pain in his back, neck, and left shoulder. A computed tomography scan of the abdomen and pelvis was completed which did not show any significant acute findings. CT of the chest was performed which did not show evidence of a pulmonary embolism. It did show fairly moderate size bilateral pleural effusions with mild central opacity or alveolar edema suggestive of fluid overload. Computed tomography scan of the cervical spine was completed which was negative for any acute fracture or dislocation. There was multilevel degenerative changes noted. His chest x-ray revealed right greater than left bibasilar infiltrates and/or atelectasis and probable small bilateral pleural effusions. The patient's troponins were elevated in the emergency room at 1.91. Cardiology was consulted. The patient was placed on a heparin drip which has since been discontinued. The patient underwent a cardiac catheterization which revealed an occluded proximal left anterior descending and heavily calcified left anterior descending and left main. The patient underwent angioplasty and a drug-eluting stent was placed in LAD. An echocardiogram was completed which shows an EF between 25 and 30%. It also shows atypical anterior and lateral LV wall motion that is hypokinetic. This morning, the patient states he is feeling well. He denies any chest pain or pressure. He denies shortness of breath. His oxygen saturation is 92% on 4L NC. He states he doesnt have much of an appetite this morning but he did have a few bites of his breakfast. He denies nausea or vomiting. His vital signs are stable. He has been afebrile. Lab work from this morning was reviewed. 05/10/2017 Patient states he is feeling well this morning. He has been transferred out of the ICU. He denies chest pain or pressure. He denies shortness of breath. He is maintaining an oxygen saturation of 92% on 4L. Patient will likely require home oxygen. He states he is having some pain in his left leg which he states is related to his diabetes. He is eating breakfast without difficulty. denies nausea or vomiting. Blood pressure is stable. 109/72 this morning. Heart rate in the 80s. Afebrile. Pulmonary has been consulted due to moderate size bilateral pleural effusions. Objective - Vital Signs Vital signs: Vital Signs Temp 97.4 F L 05/10/17 07:58 Pulse 80 05/10/17 07:58 Resp 16 05/10/17 08:00 BP 109/72 05/10/17 07:58 Pulse Ox 92 L 05/10/17 07:58 Intake & Output 05/09/17 05/10/17 05/10/17 18:59 06:59 18:59 Intake Total 1140 200 Output Total 0 600 Balance 1140 200 -600 Weight 76.2 kg 76 kg Intake: Oral 1140 200 Output: Urine 0 600 Other: Voiding Method Urinal Urinal Urinal # Voids 1 - Exam GENERAL: Alert and oriented. Appears in no acute distress. Pleasant. RESPIRATORY: Lungs clear bilaterally. No use of accessory muscles. Patient maintaining oxygen saturation of 92 on 4L%. CARDIOVASCULAR: S1 and S2 noted. Rhythm regular. No JVD noted. EXTREMITIES: No edema noted. Palpable pedal pulses +2. ABDOMEN: No distention noted. Abdomen soft and round. Normal active bowel sounds auscultated 4 quadrants. No pain or tenderness noted upon palpation. - Labs CBC & Chem 7: 05/10/17 06:07 05/10/17 06:07 Labs: Abnormal Lab Results - Last 24 Hours (Table) 05/09/17 05/09/17 05/09/17 Range/Units 11:42 12:30 16:51 RBC (4.30-5.90) m/uL Hgb (13.0-17.5) gm/dL Hct (39.0-53.0) % Sodium (137-145) mmol/L Creatinine (0.66-1.25) mg/dL Glucose (74-99) mg/dL POC Glucose (mg/dL) 116 H 128 H 174 H (75-99) mg/dL 05/09/17 05/10/17 05/10/17 Range/Units 21:07 06:03 06:07 RBC 3.68 L (4.30-5.90) m/uL Hgb 11.6 L (13.0-17.5) gm/dL Hct 36.3 L (39.0-53.0) % Sodium (137-145) mmol/L Creatinine (0.66-1.25) mg/dL Glucose (74-99) mg/dL POC Glucose (mg/dL) 142 H 104 H (75-99) mg/dL 05/10/17 Range/Units 06:07 RBC (4.30-5.90) m/uL Hgb (13.0-17.5) gm/dL Hct (39.0-53.0) % Sodium 132 L (137-145) mmol/L Creatinine 0.60 L (0.66-1.25) mg/dL Glucose 102 H (74-99) mg/dL POC Glucose (mg/dL) (75-99) mg/dL Assessment and Plan Plan: ASSESSMENT: -Chest pain, present on admission, secondary to NSTEMI -NSTEMI, present on admission, status post cardiac catheterization with angioplasty and drug-eluting stent to the LAD -Acute on chronic systolic congestive heart failure, echo shows EF of 25-30% -Acute hypoxic respiratory failure, requiring supplemental oxygen of 4L NC -Moderate-sized bilateral pleural effusions seen on CAT scan of the chest -Chronic alcohol use, patient drinks minimum of 3 beers a day -Essential hypertension -Diabetes mellitus, type II -Osteoarthritis PLAN: -Pulmonary consulted due to moderate size pleural effusions and supplemental oxygen requirements. Await further recommendations -Continue Lasix 20 mg by mouth twice a day -Cardiology on consult. Appreciate recommendations and input -Continue aspirin and Plavix per cardiology. -Consult case management for possible home o2 -Monitor labs -GI prophylaxis: Protonix 40 mg by mouth daily -DVT prophylaxis: Heparin 5000 units subcu every 8 hours -Monitor for ETOH withdrawal. Patient on CIWA scale -Monitor vital signs and address as appropriate -Monitor capillary blood glucose -Continue Humalog sliding scale -PT eval ordered. Home with home care VS ECF -If home with home care, patient will likely need home oxygen as he is on 4L NC currently with O2 sat of 92%. Spoke with Joceline, manager cash -Consult to social work for possible ECF The above impression and plan of care have been discussed and directed by signing physician. Aixa Alarcon, nurse practitioner, acting as scribe for signing physician.
[2017-05-10 11:17] LABS: Glucose,Whole Blood 148 mg/dL (75-99)
[2017-05-10] MEDS: THIAMINE 100 MG TAB PO SCH ×2 (12:10→15:43)
[2017-05-10] MEDS: MULTIVITAMINS, THERA 1 EACH TAB PO SCH (12:10)
--- NOTE | 2017-05-10 14:47 | PN ---
PROGRESS NOTE Mr. Borjas is a 76-year-old male who presented with evidence of myocardial infarction, underwent cardiac catheterization, was found to have totally occluded LAD, underwent stenting of that vessel. He is doing well this morning. His breathing has been stable. He is denying any chest pain. No dizziness or palpitation. He has ambulated and felt well. He continues to be on aspirin once a day, Lipitor 80 mg daily, Plavix 75 mg daily, Lasix 20 mg twice a day, Aldactone 25 mg daily, Zestril 2.5 mg twice a day, metoprolol tartrate 25 mg twice a day. PHYSICAL EXAMINATION: Blood pressure 111/60 with a heart in the 70s. LUNGS: Mild decreased breath sounds at the bases. HEART: Regular rate and rhythm, S1, S2. No S3 with systolic murmur. No diastolic murmur. ABDOMEN: Soft, nontender. EXTREMITIES: No edema. LAB DATA: Revealed a BUN and creatinine of 11 and 0.6, potassium 3.9. His sodium is 132. His hemoglobin is 11.6. His echocardiogram revealed evidence of severe ischemic cardiomyopathy with segmental wall motion abnormalities with moderate aortic stenosis. IMPRESSION: 1. Status post anterior myocardial infarction with stenting of a totally occluded left anterior descending artery. 2. Ischemic cardiomyopathy. 3. History of chronic alcohol intake. 4. Hypertension. 5. Diabetes mellitus. RECOMMENDATION: From the cardiac standpoint, will continue present therapy. Follow his blood pressure and adjust his antihypertensive regimen accordingly. I will continue on diuretics at the same dose, but will follow his sodium. Depending on his progress, further recommendation will be made. MMODL / IJN: [id number] /
[2017-05-10 16:38] LABS: Glucose,Whole Blood 160 mg/dL (75-99)
--- NOTE | 2017-05-10 16:45 | P.CNPUL ---
History of Present Illness Consult date: 05/10/17 Reason for consult: dyspnea, pleural effusion Chief complaint: Shortness of breath and chest pain 01-2 day duration History of present illness: Mr. Naresh Borjas is a 76-year-old male who is seen and evaluated examined on selective care this patient admitted into the hospital from the emergency department with one-day history of lower abdominal pain chest pain and progressive increased shortness of breath patient was having some abdominal distention as well because of pain he was admitted into the hospital he was found to have elevated troponin of 1.9. He underwent a workup and evaluation for pulmonary embolism which was negative however found to have bilateral moderate pleural effusion he also had an echocardiogram which revealed ejection fraction of 40% he has secondary pulmonary hypertension with PA P into 50s. [place] A patient is complaining of ongoing dyspnea on exertion going on for several weeks or noted increased swelling of the abdomen he has trace edema as well which is new. Patient underwent a cardiac catheter angiogram earlier this morning by cardiology and to have a totally occluded LAD component of ischemic cardiomyopathy H and has been moved from the ICU to stepdown. Early on evaluation denies any cough or sputum progression denies any night sweats or fevers chills denies any purulent sputum production does have shortness of breath and occasional dry cough. Patient does get short of breath on minimal activity and exertion though which is also new Review of Systems All systems: negative Eyes: denies as per HPI, denies blurred vision, denies bulging eye, denies decreased vision, denies diplopia, denies discharge, denies dry eye, denies irritation, denies itching, denies pain, denies photophobia, denies loss of peripheral vision, denies loss of vision, denies tunnel vision/blind spots Ears: deny: decreased hearing, ear discharge, earache, tinnitus Ears, nose, mouth and throat: Reports as per HPI Cardiovascular: Reports as per HPI Respiratory: Reports as per HPI Gastrointestinal: Reports as per HPI Genitourinary: Reports as per HPI Musculoskeletal: Reports as per HPI Integumentary: Reports as per HPI Neurological: Reports as per HPI Psychiatric: Reports as per HPI Endocrine: Reports as per HPI Hematologic/Lymphatic: Reports as per HPI Allergic/Immunologic: Reports as per HPI Past Medical History Past Medical History: CVA/TIA, Diabetes Mellitus, Hypertension, Osteoarthritis ( OA) Additional Past Medical History / Comment(s): Diabetic neuropathy chronic back pain , SOME TROUBLE SWALLOING History of Any Multi-Drug Resistant Organisms: None Reported Past Surgical History: Back Surgery Additional Past Surgical History / Comment(s): bilateral cataract removal with implants, right foot surgery Past Anesthesia/Blood Transfusion Reactions: No Reported Reaction Past Psychological History: Depression Smoking Status: Never smoker Past Alcohol Use History: Daily Additional Past Alcohol Use History / Comment(s): 3 BEERS A DAY Past Drug Use History: None Reported - Past Family History Mother Family Medical History: No Reported History Father Family Medical History: Cancer Sister(s) Family Medical History: Cancer Medications and Allergies Home Medications Medication Instructions Recorded Confirmed Type Pregabalin [Lyrica] 300 mg PO BID 09/02/15 05/08/17 History oxyCODONE-APAP 10-325MG [Percocet 1 tab PO Q8H PRN 09/02/15 05/08/17 History 10-325 mg] amLODIPine [Norvasc] 5 mg PO DAILY 11/11/16 05/08/17 History metFORMIN HCL [Glucophage] 500 mg PO BID 12/08/16 05/08/17 History Enalapril [Vasotec] 10 mg PO DAILY 05/08/17 05/08/17 History Allergies Allergy/AdvReac Type Severity Reaction Status Date / Time No Known Allergies Allergy Verified 05/08/17 13:41 Physical Exam Vitals: Vital Signs Temp Pulse Resp BP Pulse Ox 05/10/17 15:47 97.3 F L 74 18 134/66 92 L 05/10/17 15:24 18 05/10/17 12:00 78 18 111/67 93 L 05/10/17 09:34 91 L 05/10/17 09:15 81 L 05/10/17 08:00 16 05/10/17 07:58 97.4 F L 80 16 109/72 92 L 05/10/17 04:00 97.1 F L 71 16 97/67 94 L 05/10/17 00:00 70 18 117/65 92 L 05/09/17 20:30 97.0 F L 94 18 117/79 93 L 05/09/17 16:49 97 Intake and Output 05/10/17 05/10/17 05/10/17 06:59 14:59 22:59 Intake Total 200 444 Output Total 600 300 Balance 200 -156 -300 Intake: Oral 200 444 Output: Urine 600 300 Other: Voiding Method Urinal Urinal Weight 76 kg - Constitutional General appearance: cooperative, disheveled, mild distress, no acute distress, obese - EENT Eyes: EOMI, PERRLA, normal appearance ENT: hearing grossly normal, normal oropharynx - Neck Neck: normal ROM Carotids: bilateral: upstroke normal, upstroke delayed, bruit absent, bruit present Thyroid: bilateral: normal size - Respiratory Respiratory: bilateral: diminished, dullness (Bilateral base), negative: CTA, rales, rhonchi, wheezing, prolonged expiration, prolonged inspiration - Cardiovascular Rhythm: regular Heart sounds: normal: S1, S2 - Gastrointestinal General gastrointestinal: distended, normal bowel sounds, soft - Integumentary Integumentary: normal turgor - Neurologic Neurologic: CNII-XII intact - Musculoskeletal Musculoskeletal: gait normal, generalized weakness, strength equal bilaterally - Psychiatric Psychiatric: A&O x's 3, appropriate affect, intact judgment & insight Results - Laboratory Findings CBC and BMP: 05/10/17 06:07 05/10/17 06:07 PT/INR, D-dimer PT 11.1 sec (9.0-12.0) 05/08/17 12:42 INR 1.1 (<1.2) 05/08/17 12:42 Abnormal lab findings: Abnormal Labs 05/08/17 05/08/17 05/08/17 12:42 12:42 12:42 RBC 3.77 L Hgb 12.3 L Hct 36.7 L MCV Monocytes # (Manual) APTT Sodium 135 L BUN 8 L Creatinine 0.60 L Glucose 151 H POC Glucose (mg/dL) CK-MB (CK-2) 6.4 H* Troponin I 1.910 H* Albumin 3.4 L Lipase 14 L 05/08/17 05/08/17 05/08/17 16:37 18:52 18:52 RBC Hgb Hct MCV Monocytes # (Manual) APTT 46.5 H Sodium BUN Creatinine Glucose POC Glucose (mg/dL) 103 H CK-MB (CK-2) 7.8 H* Troponin I 4.360 H* Albumin Lipase 05/09/17 05/09/17 05/09/17 00:46 04:00 04:00 RBC 3.70 L Hgb 12.1 L Hct 37.4 L MCV 100.9 H Monocytes # (Manual) 1.04 H APTT Sodium 134 L BUN Creatinine 0.60 L Glucose 128 H POC Glucose (mg/dL) CK-MB (CK-2) 7.0 H* Troponin I 3.370 H* Albumin Lipase 05/09/17 05/09/17 05/09/17 07:56 11:42 12:30 RBC Hgb Hct MCV Monocytes # (Manual) APTT Sodium BUN Creatinine Glucose POC Glucose (mg/dL) 122 H 116 H 128 H CK-MB (CK-2) Troponin I Albumin Lipase 05/09/17 05/09/17 05/10/17 16:51 21:07 06:03 RBC Hgb Hct MCV Monocytes # (Manual) APTT Sodium BUN Creatinine Glucose POC Glucose (mg/dL) 174 H 142 H 104 H CK-MB (CK-2) Troponin I Albumin Lipase 05/10/17 05/10/17 05/10/17 06:07 06:07 11:15 RBC 3.68 L Hgb 11.6 L Hct 36.3 L MCV Monocytes # (Manual) APTT Sodium 132 L BUN Creatinine 0.60 L Glucose 102 H POC Glucose (mg/dL) 148 H CK-MB (CK-2) Troponin I Albumin Lipase - Diagnostic Findings Chest x-ray: report reviewed, image reviewed CT scan - chest: report reviewed, image reviewed (Bilateral pleural effusion noted likely related to cardiomyopathy and congestive heart failure) Assessment and Plan Plan: Bilateral pleural effusion right more than left Q myocardial infarction non-STEMI Cardiomyopathy with likely acute on chronic systolic heart failure Coronary artery disease with stenosis of LAD status post stent placement hypertension and hypertensive cardiovascular disease Pulmonary hypertension likely related to cardiomyopathy Would optimize therapy monitor observe clinical course closely will order ultrasound of the chest bilaterally if a significant effusion is seen and does not resolve to conservative therapy patient may be a candidate for bilateral thoracentesis is will monitor observe closely Time with Patient: Greater than 30
[2017-05-10] MEDS: ATORVASTATIN 80 MG TAB PO SCH (20:37)
[2017-05-10 20:58] LABS: Glucose,Whole Blood 158 mg/dL (75-99)
[2017-05-11] MEDS: oxyCODONE-APAP 10-325MG 1 EACH TAB PO PRN ×2 (06:17→14:05)
[2017-05-11] MEDS: PANTOPRAZOLE 40 MG TABLET PO SCH (06:19)
[2017-05-11] MEDS: INSULIN LISPRO (humaLOG) 300 UNIT/3 ML VIAL SQ SCH ×2 (06:21→12:17)
[2017-05-11 06:22] LABS: Glucose,Whole Blood 121 mg/dL (75-99)
[2017-05-11 06:41] LABS: Basophils % (A) 0 %; CH 32.7; CHCM 33.4; Eosinophils # (A) 0.2 k/uL (0-0.7); Eosinophils % (A) 3 %; HCT 35.7 % (39.0-53.0); HDW 2.69; HGB 11.4 gm/dL (13.0-17.5); Luc # (Auto) 0.29; Luc % (Auto) 4; Lymphocytes # (A) 1.1 k/uL (1.0-4.8); Lymphocytes % (A) 15 %; MCH 31.4 pg (25.0-35.0); MCHC 31.8 g/dL (31.0-37.0); MCV 98.7 fL (80.0-100.0); Mean Platelet Volume 8.8; Monocytes # (A) 0.7 k/uL (0-1.0); Monocytes % (A) 10 %; Neutrophils # (A) 4.9 k/uL (1.3-7.7); Neutrophils % (A) 67 %; RBC 3.61 m/uL (4.30-5.90); RDW 14.8 % (11.5-15.5); WBC 7.3 k/uL (3.8-10.6); WBC (Perox) 7.71
[2017-05-11 06:55] LABS: Anion Gap 8 mmol/L; Blood Urea Nitrogen 11 mg/dL (9-20); Calcium 9.1 mg/dL (8.4-10.2); Carbon Dioxide 25 mmol/L (22-30); Chloride 99 mmol/L (98-107); Glucose 109 mg/dL (74-99); Non-African American GFR(MDRD) >60 (>60 ml/min/1.73 sqM); Potassium 3.9 mmol/L (3.5-5.1); Sodium 132 mmol/L (137-145)
--- NOTE | 2017-05-11 08:15 | US ---
EXAMINATION TYPE: US chest DATE OF EXAM: 05/10/2017 COMPARISON: NONE CLINICAL HISTORY: bilateral pleural effusion. EXAM MEASUREMENTS: Right Pleural Effusion fluid pocket: 13.1 cm Right skin to fluid thickness: 2.1 cm Left Pleural Effusion fluid pocket: 10.1 cm Left skin to fluid thickness: 2.3 cm Right side marked for possible thoracentesis outside the dept. Left side marked for possible thoracentesis outside the dept. Pulmonologists are able to review the images in the patient?s EMR. Bilateral pleural effusion right and left side marked for possible thoracentesis IMPRESSIONS: Bilateral pleural effusion.
--- NOTE | 2017-05-11 08:27 | PN ---
PROGRESS NOTE Mr. Borjas is a 76-year-old male who presented with an acute anterior myocardial infarction, underwent stenting of a totally occluded LAD, has severe cardiomyopathy. He is feeling well. This morning he feels tired. His breathing is stable. He continues to be dyspneic on exertion without any significant change. He denies any dizziness or palpitation. No nausea. No cough or fever. No wheezing. He continues to be on aspirin once a day, Lipitor 80 mg daily, Plavix 75 mg daily, furosemide 20 mg twice a day, lisinopril 2.5 mg twice a day, metoprolol tartrate 25 mg twice a day in addition to . PHYSICAL EXAMINATION: Blood pressure 132/70 with the heart rate in the 70s. LUNGS: With decreased breath sounds at bases. HEART: Regular rate and rhythm. S1, S2. No S3. No rub. ABDOMEN: Soft, nontender. EXTREMITIES: No edema. LAB DATA: Lab data showed a sodium 132, BUN and creatinine of 11 and 0.6 and a hemoglobin of 11.4. He had chest ultrasound performed and the results are pending. IMPRESSION: 1. Status post anterior myocardial infarction with stenting of the left anterior descending artery. 2. Ischemic cardiomyopathy. 3. Prior history of alcohol intake. RECOMMENDATION: From the cardiac standpoint, I will increase his level activity, increase the dose of his BRITTANY inhibitor and if he remains stable, I would expect he should be able to be discharged home in the next 24 to 48 hours. We will follow his sodium closely. MMODL / IJN: [id number] /
[2017-05-11] MEDS ORDERED: LISINOPRIL 5 MG TAB PO SCH (09:00)
[2017-05-11 09:35] VITALS: RESP 20
[2017-05-11] MEDS: METOPROLOL TARTRATE 25 MG TAB PO SCH (09:38)
[2017-05-11] MEDS: CLOPIDOGREL 75 MG TAB PO SCH (09:38)
[2017-05-11] MEDS: ASPIRIN 81 MG PO SCH (09:38)
[2017-05-11] MEDS: HEPARIN SODIUM,PORCINE 5,000 UNIT/ML 1 ML VIAL SQ SCH (09:38)
[2017-05-11] MEDS: SPIRONOLACTONE 25 MG TAB PO SCH (09:39)
[2017-05-11] MEDS: FUROSEMIDE 20 MG TAB PO SCH (09:39)
[2017-05-11] MEDS: PREGABALIN 100 MG CAP PO SCH (09:42)
--- NOTE | 2017-05-11 11:12 | P.PN ---
Subjective Progress Note Date: 05/11/17 05/11/17- patient is seen and examined and evaluated today on the selective care unit. Patient does continue to have some shortness of breath on exertion and extensive conversation. Patient did undergo a ultrasound and was noted to have a right-sided pleural effusion of 13.1 cm. Patient continues on supplemental oxygen 4 Lpm. He does have an occasional cough that is nonproductive. All labs and reports have been reviewed. 05/10/17- Mr. Naresh Borjas is a 76-year-old male who is seen and evaluated examined on selective care this patient admitted into the hospital from the emergency department with one-day history of lower abdominal pain chest pain and progressive increased shortness of breath patient was having some abdominal distention as well because of pain he was admitted into the hospital he was found to have elevated troponin of 1.9. He underwent a workup and evaluation for pulmonary embolism which was negative however found to have bilateral moderate pleural effusion he also had an echocardiogram which revealed ejection fraction of 40% he has secondary pulmonary hypertension with PA P into 50s. [place] A patient is complaining of ongoing dyspnea on exertion going on for several weeks or noted increased swelling of the abdomen he has trace edema as well which is new. Patient underwent a cardiac catheter angiogram earlier this morning by cardiology and to have a totally occluded LAD component of ischemic cardiomyopathy H and has been moved from the ICU to stepdown. Early on evaluation denies any cough or sputum progression denies any night sweats or fevers chills denies any purulent sputum production does have shortness of breath and occasional dry cough. Patient does get short of breath on minimal activity and exertion though which is also new Objective - Vital Signs Vital signs: Vital Signs Temp 97.2 F L 05/11/17 09:15 Pulse 92 05/11/17 09:15 Resp 20 05/11/17 09:15 BP 111/69 05/11/17 09:15 Pulse Ox 91 L 05/11/17 09:37 Intake & Output 05/10/17 05/11/17 05/11/17 18:59 06:59 18:59 Intake Total 684 10 240 Output Total 900 250 Balance -216 10 -10 Weight 76 kg Intake: Intake, IV Titration 10 Amount Sodium Chloride 0.9% 1, 10 000 ml As IV .[facility] Rx#:[id number] Oral 684 240 Output: Urine 900 250 Other: Voiding Method Urinal Urinal Urinal - Exam - Constitutional General appearance: cooperative, disheveled, mild distress, no acute distress, obese - EENT Eyes: EOMI, PERRLA, normal appearance ENT: hearing grossly normal, normal oropharynx - Neck Neck: normal ROM Carotids: bilateral: upstroke normal, upstroke delayed, bruit absent, bruit present Thyroid: bilateral: normal size - Respiratory Respiratory: bilateral: diminished, dullness (Bilateral base), negative: CTA, rales, rhonchi, wheezing, prolonged expiration, prolonged inspiration - Cardiovascular Rhythm: regular Heart sounds: normal: S1, S2 - Gastrointestinal General gastrointestinal: distended, normal bowel sounds, soft - Integumentary Integumentary: normal turgor - Neurologic Neurologic: CNII-XII intact - Musculoskeletal Musculoskeletal: gait normal, generalized weakness, strength equal bilaterally - Psychiatric Psychiatric: A&O x's 3, appropriate affect, intact judgment & insight - Labs CBC & Chem 7: 05/11/17 06:06 05/11/17 06:06 Labs: Abnormal Lab Results - Last 24 Hours (Table) 05/10/17 05/10/17 05/10/17 Range/Units 11:15 16:34 20:55 RBC (4.30-5.90) m/uL Hgb (13.0-17.5) gm/dL Hct (39.0-53.0) % Sodium (137-145) mmol/L Creatinine (0.66-1.25) mg/dL Glucose (74-99) mg/dL POC Glucose (mg/dL) 148 H 160 H 158 H (75-99) mg/dL 05/11/17 05/11/17 05/11/17 Range/Units 06:06 06:06 06:19 RBC 3.61 L (4.30-5.90) m/uL Hgb 11.4 L (13.0-17.5) gm/dL Hct 35.7 L (39.0-53.0) % Sodium 132 L (137-145) mmol/L Creatinine 0.60 L (0.66-1.25) mg/dL Glucose 109 H (74-99) mg/dL POC Glucose (mg/dL) 121 H (75-99) mg/dL Assessment and Plan Plan: Assessment Bilateral pleural effusion right more than left myocardial infarction non-STEMI Cardiomyopathy with likely acute on chronic systolic heart failure Coronary artery disease with stenosis of LAD status post stent placement hypertension and hypertensive cardiovascular disease Pulmonary hypertension likely related to cardiomyopathy Plan Patient cannot undergo thoracentesis at this time due to being on Plavix. Plavix cannot be stopped at this time due to recent stent. Patient can be cleared to go to rehab facility and we will continue to follow effusions in the outpatient setting and can possibly do a thoracentesis down the road if effusion unresolved and as a last resort. Medications have been reviewed and will be continued as ordered. Continue with pulmonary hygiene, coughing and deep breathing exercises, and supportive care. Supplemental oxygen to maintain oxygen saturations of 92% or better. Continue nebulizer treatments. GI and DVT prophylaxis. We will continue to monitor labs/results and adjust treatment as necessary. Further recommendations pending. I performed an examination of the patient and discussed their management with the nurse practitioner. I have reviewed the nurse practitioner's note and agree with the documented findings and plan of care.
[2017-05-11 11:18] LABS: Glucose,Whole Blood 215 mg/dL (75-99)
[2017-05-11 11:56] VITALS: BP 104/68; PULSE 68; TEMP 97.5
[2017-05-11 12:04] VITALS: BMI 21.4
[2017-05-11] MEDS: THIAMINE 100 MG TAB PO SCH (12:17)
[2017-05-11] MEDS: MULTIVITAMINS, THERA 1 EACH TAB PO SCH (12:17)
--- NOTE | 2017-08-22 08:49 | DS ---
DISCHARGE SUMMARY DATE OF ADMISSION: 05/08/2017. DATE OF DISCHARGE: 05/11/2017. FINAL DIAGNOSES: Is as follows. 1. Chest pain on admission secondary to a non ST-segment elevated myocardial infarction. 2. Cardiac catheterization with angioplasty with insertion of a drug-eluting stent in the LAD. 3. Chronic systolic congestive heart failure with a cardiomyopathy with ejection fraction of 20-30%. 4. Acute hypoxic respiratory failure requiring supplemental oxygen. 5. Bilateral pleural effusion. 6. Chronic alcohol abuse. 7. Essential hypertension. 8. Diabetes type 2. 9. Osteoarthritis. HOSPITAL COURSE: This is a pleasant 76-year-old white male who presented to the emergency department with chest pain. He was found to have a non ST-segment elevated myocardial infarction. He underwent cardiac catheterization which revealed an occluded proximal left anterior descending, where a drug-eluting stent was placed. He was shown to have a poor ejection fraction between 25 and 30%. The consultations by Cardiology as well as pulmonary. The patient's initial stay was in the Intensive Care and he had an uneventful intensive care stay and was later transferred to [facility]. It was felt that patient could be followed up on outpatient basis, he was cleared for discharge. DISCHARGE MEDICATIONS: 1. Aspirin 81 mg once daily. 2. Lipitor 80 mg q.h.s. 3. Plavix 75 mg once daily. 4. Flonase nasal spray as directed. 5. Lasix 20 mg b.i.d. 6. Insulin Humalog subcu before meals as directed. 7. Zestril 2.5 mg b.i.d. 8. Maalox p.r.n. 9. Lopressor 25 b.i.d. 10.Nitroglycerin sublingual p.r.n. 11.Multivitamin once daily. 12.Protonix 40 mg at breakfast. 13.Lyrica 300 mg b.i.d. 14.Aldactone 25 mg daily. 15.Thiamin 100 mg b.i.d. 16.Percocet 10/325 1 tablet q.8 hours. 17.Norvasc 5 mg once daily. 18.Glucophage 500 twice daily. The patient understands both written and verbal instructions. Followups with all the consultants. He can have [facility] to follow patient. Follow up with Dr. Powell in 2 weeks and myself in 1 week. MMODL / IJN: [id number] /
== END 2017-05-11 16:24 | DRG 246 ==
LOC: EC 12:21 → 6SEL 13:50 → 6ICU 16:21 → 6SEL 05-09 14:52
PROVIDERS: ADMIT Family Medicine; ATTEND Family Medicine
PROC: B2111ZZ Fluoroscopy of Multiple Coronary Arteries using Low Osmolar Contrast (ICD-10-PCS; 2017-05-08)
PROC: 027034Z Dilation of Coronary Artery, One Artery with Drug-eluting Intraluminal Device, Percutaneous Approach (ICD-10-PCS; principal; 2017-05-08 11:50)
PROC: 4A023N7 Measurement of Cardiac Sampling and Pressure, Left Heart, Percutaneous Approach (ICD-10-PCS; 2017-05-08 11:50)
DX: I21.4 Non-ST elevation (NSTEMI) myocardial infarction (principal); J96.01 Acute respiratory failure with hypoxia; I50.23 Acute on chronic systolic (congestive) heart failure; J90 Pleural effusion, not elsewhere classified; I11.0 Hypertensive heart disease with heart failure; E11.40 Type 2 diabetes mellitus with diabetic neuropathy, unspecified; I25.10 Atherosclerotic heart disease of native coronary artery without angina pectoris; G89.29 Other chronic pain; M25.512 Pain in left shoulder; M54.2 Cervicalgia; M19.90 Unspecified osteoarthritis, unspecified site; R29.6 Repeated falls; Z96.1 Presence of intraocular lens; I27.20 Pulmonary hypertension, unspecified; I25.5 Ischemic cardiomyopathy; F10.10 Alcohol abuse, uncomplicated; F32.9 Major depressive disorder, single episode, unspecified; Z72.89 Other problems related to lifestyle; Z79.84 Long term (current) use of oral hypoglycemic drugs; Z79.899 Other long term (current) drug therapy; Z79.891 Long term (current) use of opiate analgesic; Z86.73 Personal history of transient ischemic attack (TIA), and cerebral infarction without residual deficits; Z79.02 Long term (current) use of antithrombotics/antiplatelets; Z79.82 Long term (current) use of aspirin; Z98.41 Cataract extraction status, right eye; Z98.42 Cataract extraction status, left eye
CPT/HCPCS: 36415; 71020; 71275; 72125; 74177; 76604; 80048; 80053; 80061; 82550; 82553; 83036; 83690; 83735; 84484; 85025; 85610; 85730; 93005; 93306; 93454; 96365; 96375; 96376; 99291

== ENCOUNTER 2017-05-24 00:37 | Inpatient (IN) | payer MEDICARE ==
[2017-05-24 00:55] LABS: Glucose,Whole Blood 93 mg/dL (75-99)
[2017-05-24 01:02] LABS: Basophils % (A) 0 %; CH 32.4; CHCM 34.5; Eosinophils # (A) 0.3 k/uL (0-0.7); Eosinophils % (A) 4 %; HCT 29.5 % (39.0-53.0); HDW 2.89; HGB 9.8 gm/dL (13.0-17.5); Luc # (Auto) 0.17; Luc % (Auto) 3; Lymphocytes % (A) 17 %; MCH 31.6 pg (25.0-35.0); MCHC 33.4 g/dL (31.0-37.0); MCV 94.5 fL (80.0-100.0); Mean Platelet Volume 9.1; Monocytes # (A) 0.5 k/uL (0-1.0); Monocytes % (A) 8 %; Neutrophils # (A) 4.1 k/uL (1.3-7.7); Neutrophils % (A) 68 %; RBC 3.12 m/uL (4.30-5.90); WBC (Perox) 6.22
[2017-05-24 01:10] LABS: INR 1.2 (<1.2); Prothrombin Time 11.8 sec (9.0-12.0)
[2017-05-24 01:12] LABS: Anion Gap 7 mmol/L; Calcium 8.6 mg/dL (8.4-10.2); Carbon Dioxide 25 mmol/L (22-30); Chloride 92 mmol/L (98-107); Glucose 96 mg/dL (74-99); Non-African American GFR(MDRD) >60 (>60 ml/min/1.73 sqM); Sodium 124 mmol/L (137-145); Total Bilirubin 0.8 mg/dL (0.2-1.3)
--- NOTE | 2017-05-24 01:18 | XR ---
EXAMINATION TYPE: XR chest 1V portable DATE OF EXAM: 05/24/2017 COMPARISON: 05/08/2017 HISTORY: Chest pain TECHNIQUE: Single frontal view of the chest is obtained. FINDINGS: There is pulmonary vascular congestion and interstitial edema. There is some coalescent de nsity at the right lung base. Thoracic aorta is atheromatous. There are chest leads. IMPRESSION: There is evidence for congestive heart failure and right lower lobe pneumonia that is wo rse than last exam.
[2017-05-24 01:23] LABS: ALT 22 U/L (21-72); AST 41 U/L (17-59); Alkaline Phosphatase 80 U/L (38-126); Blood Urea Nitrogen 17 mg/dL (9-20); Magnesium 1.6 mg/dL (1.6-2.3); Potassium 4.7 mmol/L (3.5-5.1)
--- NOTE | 2017-05-24 01:25 | ED ---
Chest Pain HPI - General Chief Complaint: Chest Pain Stated Complaint: Chest Pain Time Seen by Provider: 05/24/17 00:39 Source: patient Mode of arrival: EMS Limitations: no limitations - History of Present Illness Initial Comments: This patient is 76-year-old man who states that tonight while he was resting around 11:30 PM he developed substernal and epigastric chest pain. When asked to characterize the pain it is an aching, heavy, burning type of pain. The patient states he is at a rehab facility following having a stent placed, and that while he was there they gave him aspirin and nitroglycerin which initially did not relieve the pain but he states it is now gone. He states that he feels pretty good right now. He did not note any other worsening or relieving factors. The patient denied having any associated symptoms other than feeling a little warm. MD Complaint: chest pain Onset/Timin -: hour(s) Onset: during rest Pain Location: substernal, epigastric Pain Radiation: none Severity: moderate Quality: aching, heaviness, other (Burning) Consistency: constant Improves With: nitroglycerin Worsens With: nothing Treatments Prior to Arrival: aspirin, nitroglycerin, oxygen - Related Data Home Medications Medication Instructions Recorded Confirmed amLODIPine [Norvasc] 5 mg PO DAILY 11/11/16 05/08/17 metFORMIN HCL [Glucophage] 500 mg PO BID 12/08/16 05/08/17 Previous Rx's Medication Instructions Recorded Aspirin 81 mg PO DAILY 05/11/17 Atorvastatin [Lipitor] 80 mg PO HS tab 05/11/17 Clopidogrel [Plavix] 75 mg PO DAILY tab 05/11/17 Fluticasone Nasal [place] [Flonase 2 spray EA NOSTRIL DAILY PRN spray 05/11/17 Nasal [place]] Furosemide [Lasix] 20 mg PO BID tab 05/11/17 INSULIN LISPRO (humaLOG) [humaLOG 0 unit SQ ACHS vial 05/11/17 (formulary)] Lisinopril [Zestril] 2.5 mg PO BID tab 05/11/17 Mag Hydrox/Al Hydrox/Simeth 30 ml PO Q4HR PRN dose 05/11/17 [Maalox] Metoprolol Tartrate [Lopressor] 25 mg PO BID tab 05/11/17 Multivitamins, Thera [Multivitamin 1 each PO DAILY@1200 tab 05/11/17 (formulary)] Nitroglycerin Sl Tabs [Nitrostat] 0.4 mg SUBLINGUAL Q5M PRN tab 05/11/17 Pantoprazole [Protonix] 40 mg PO AC-BRKFST tab 05/11/17 Pregabalin [Lyrica] 300 mg PO BID #60 05/11/17 Spironolactone [Aldactone] 25 mg PO DAILY tab 05/11/17 Thiamine [Vitamin B-1] 100 mg PO BID@1200,1700 tab 05/11/17 oxyCODONE-APAP 10-325MG [Percocet 1 tab PO Q8H PRN #30 05/11/17 10-325 mg] Allergies Allergy/AdvReac Type Severity Reaction Status Date / Time No Known Allergies Allergy Verified 05/24/17 00:49 Review of Systems ROS Statement: Those systems with pertinent positive or pertinent negative responses have been documented in the HPI. ROS Other: All systems not noted in ROS Statement are negative. Constitutional: Denies: fever, chills Respiratory: Reports: dyspnea. Denies: cough, wheezes Cardiovascular: Reports: chest pain. Denies: palpitations, orthopnea, edema, syncope Gastrointestinal: Denies: abdominal pain, vomiting, melena, hematochezia Musculoskeletal: Denies: back pain Skin: Denies: rash Neurological: Denies: headache, weakness EKG Findings - EKG Results: EKG: interpreted by ERMD, sinus rhythm (Rate approximate 61 bpm) - Blocks, [place], Hypertrophy, ST Abn: AV and intraventricular conduction: 1 AV block Repolarization changes or abnormalities: ST or T wave suggestive of ischemia ( Lateral leads) - MA, Pacemaker, Normal: Myocardial infarction: septal MA (old age or indeterminate) Past Medical History Past Medical History: CVA/TIA, Diabetes Mellitus, Hypertension, Osteoarthritis ( OA) Additional Past Medical History / Comment(s): Diabetic neuropathy chronic back pain , SOME TROUBLE SWALLOING History of Any Multi-Drug Resistant Organisms: None Reported Past Surgical History: Back Surgery Additional Past Surgical History / Comment(s): bilateral cataract removal with implants, right foot surgery Past Anesthesia/Blood Transfusion Reactions: No Reported Reaction Past Psychological History: Depression Smoking Status: Never smoker Past Alcohol Use History: Daily Past Drug Use History: None Reported - Past Family History Mother Family Medical History: No Reported History Father Family Medical History: Cancer Sister(s) Family Medical History: Cancer General Exam Limitations: no limitations Course Vital Signs 05/24/17 05/24/17 05/24/17 00:39 00:56 00:57 Temperature 97.4 F L Pulse Rate 66 58 L Respiratory 18 18 18 Rate Blood Pressure 99/56 98/56 O2 Sat by Pulse 82 L 94 L Oximetry 05/24/17 05/24/17 01:42 02:32 Temperature Pulse Rate 65 60 Respiratory 18 18 Rate Blood Pressure 113/58 106/54 O2 Sat by Pulse 93 L 95 Oximetry Disposition Clinical Impression: Chest pain, Pneumonia, Hyponatremia Disposition: ADMITTED IP TO THIS HOSP Condition: Fair
[2017-05-24] MEDS ORDERED: HEPARIN SODIUM,PORCINE 5,000 UNIT/ML 1 ML VIAL IV ONE (01:31)
[2017-05-24] MEDS ORDERED: HEPARIN SODIUM,PORCINE 5,000 UNIT/ML 1 ML VIAL IV PRN (01:31)
[2017-05-24 01:39] LABS: Troponin I 0.015 ng/mL (0.000-0.034)
[2017-05-24] MEDS: HEPARIN SODIUM,PORCINE/D5W PMX 25,000 UNIT in DEXTROSE/WATER 1 500ML.BAG IV SCH (01:42)
[2017-05-24] MEDS ORDERED: LEVOFLOXACIN 750MG-D5W PMX 750 MG in DEXTROSE/WATER 1 150ML.BAG IVPB STA (02:31)
[2017-05-24] MEDS ORDERED: PNEUMONIA PROTOCOL UTILIZED 1 EACH MISC PO PRN (02:31)
[2017-05-24] MEDS ORDERED: PIPERACILLIN-TAZOBACTAM 3.375 GM in DEXTROSE/WATER 1 50ML.BAG IVPB STA (02:31)
[2017-05-24] MEDS ORDERED: MAG HYDROX/AL HYDROX/SIMETH 30 ML CUP PO PRN (02:33)
[2017-05-24] MEDS: SODIUM CHLORIDE 0.9% 1,000 ML IV SCH (03:09)
[2017-05-24] MEDS: oxyCODONE-APAP 10-325MG 1 EACH TAB PO PRN ×2 (04:07→20:53)
[2017-05-24 06:13] LABS: Glucose,Whole Blood 100 mg/dL (75-99)
[2017-05-24] MEDS: metFORMIN 500 MG TAB PO SCH ×2 (06:15→17:05)
[2017-05-24] MEDS: PANTOPRAZOLE 40 MG TABLET PO SCH (06:31)
[2017-05-24] MEDS: ALBUTEROL NEBULIZED 2.5 MG/3 ML INHALATION SCH ×4 (08:38→20:02)
[2017-05-24] MEDS ORDERED: FUROSEMIDE 10 MG/ML 4 ML VIAL IV STA (08:43)
--- NOTE | 2017-05-24 08:44 | P.CRDCN ---
History of Present Illness Consult date: 05/24/17 Requesting physician: Be Velasquez Consult reason: chest pain, shortness of breath Chief complaint: Chest pain History of present illness: This is a 76-year-old gentleman with history of diabetes, hypertension , chronic EtOH use, who was recently in the hospital earlier this month at which time he underwent angioplasty and stenting of the LAD by Dr. Chan. He also had an echo performed at that time which revealed an ejection fraction of 25-30%. He comes back to the hospital on this admission with symptoms of chest discomfort which she describes as a burning pressure that radiates across his chest. He states that it felt extremely heavy and he was quite short of breath. Patient was given a nitroglycerin without any relief of symptoms and brought to the emergency room for further evaluation. Chest x-ray on admission revealed evidence of congestive cardiac failure and a right lower lobe pneumonia. Chest x-ray performed on May 08 at the time of his most recent admission showed right greater than left bibasilar infiltrate and/or atelectasis with small bilateral pleural effusions. EKG on admission showed a normal sinus rhythm with ST-T wave changes in the anterior lateral leads. White blood cell count 6.0, hemoglobin 9.8, sodium 124 , BUN 17, creatinine 0.6. Troponin 0.015. BNP level 9350. Sodium level on this May 14 was 137. Hemoglobin was 10.8 on his discharge at May 14. At the time of my examination this morning, patient is lying flat in bed, he continues to complain of persistent aching and burning across his chest. He is currently on IV heparin, aspirin, metoprolol tartrate, lisinopril, Lipitor, and Aldactone, he was also initiated on IV antibiotics in the emergency room. Blood pressure 108/60 with a heart rate in the 60s, 92% on 4 L of oxygen. Past Medical History Past Medical History: CVA/TIA, Diabetes Mellitus, Hypertension, Myocardial Infarction ([place]), Osteoarthritis ([place]) Additional Past Medical History / Comment(s): Diabetic neuropathy chronic back pain , SOME TROUBLE SWALLOING Last Myocardial Infarction Date:: 05/08/2017 History of Any Multi-Drug Resistant Organisms: None Reported Past Surgical History: Back Surgery, Heart Catheterization With Stent Additional Past Surgical History / Comment(s): bilateral cataract removal with implants, right foot surgery, stent to LAD 05/08 Past Anesthesia/Blood Transfusion Reactions: No Reported Reaction Date of Last Stent Placement:: 05/08/2017 Past Psychological History: Depression Smoking Status: Never smoker Past Alcohol Use History: Daily Additional Past Alcohol Use History / Comment(s): 3 BEERS A DAY Past Drug Use History: None Reported - Past Family History Mother Family Medical History: No Reported History Father Family Medical History: Cancer Sister(s) Family Medical History: Cancer Medications and Allergies Home Medications Medication Instructions Recorded Confirmed Type amLODIPine [Norvasc] 5 mg PO DAILY 11/11/16 05/24/17 History metFORMIN HCL [Glucophage] 500 mg PO BID 12/08/16 05/24/17 History Aspirin 81 mg PO DAILY 05/11/17 05/24/17 Rx Atorvastatin [Lipitor] 80 mg PO HS tab 05/11/17 05/24/17 Rx Clopidogrel [Plavix] 75 mg PO DAILY tab 05/11/17 05/24/17 Rx Fluticasone Nasal [place] [Flonase 2 spray EA NOSTRIL DAILY PRN spray 05/11/17 Rx Nasal [place]] Furosemide [Lasix] 20 mg PO BID tab 05/11/17 05/24/17 Rx Lisinopril [Zestril] 2.5 mg PO BID tab 05/11/17 05/24/17 Rx Mag Hydrox/Al Hydrox/Simeth 30 ml PO Q4HR PRN dose 05/11/17 05/24/17 Rx [Maalox] Metoprolol Tartrate [Lopressor] 25 mg PO BID tab 05/11/17 05/24/17 Rx Nitroglycerin Sl Tabs [Nitrostat] 0.4 mg SUBLINGUAL Q5M PRN tab 05/11/17 Rx Pantoprazole [Protonix] 40 mg PO AC-BRKFST tab 05/11/17 05/24/17 Rx Pregabalin [Lyrica] 300 mg PO BID #60 05/11/17 05/24/17 Rx Spironolactone [Aldactone] 25 mg PO DAILY tab 05/11/17 05/24/17 Rx Thiamine [Vitamin B-1] 100 mg PO BID@1200,1700 tab 05/11/17 05/24/17 Rx oxyCODONE-APAP 10-325MG [Percocet 1 tab PO Q8H PRN #30 05/11/17 05/24/17 Rx 10-325 mg] INSULIN LISPRO (humaLOG) [humaLOG See Protocol SQ ACHS 05/24/17 05/24/17 History (formulary)] Multivitamins, Thera [Multivitamin 1 tab PO DAILY 05/24/17 05/24/17 History (formulary)] Allergies Allergy/AdvReac Type Severity Reaction Status Date / Time No Known Allergies Allergy Verified 05/24/17 00:49 Physical Exam Vitals: Vital Signs Temp Pulse Pulse Resp BP BP Pulse Ox 05/24/17 04:00 97 F L 69 18 108/69 92 L 05/24/17 03:11 97.7 F 66 18 112/61 96 05/24/17 02:32 60 18 106/54 95 05/24/17 01:42 65 18 113/58 93 L 05/24/17 00:57 18 05/24/17 00:56 58 L 18 98/56 94 L 05/24/17 00:39 97.4 F L 66 18 99/56 82 L Intake and Output 05/23/17 05/24/17 05/24/17 22:59 06:59 14:59 Intake Total 520 Balance 520 Intake: IV 520 Heparin Sodium,Porcine/ 160 D5w Pmx 25,000 unit In Dextrose/Water 1 500ml. bag @ 12 UNITS/KG/HR 19. 15 mls/hr IV .Q24H [facility] Rx #:[id number] Levofloxacin 750Mg-D5w 150 Pmx 750 mg In Dextrose/ Water 1 150ml.bag @ 100 mls/hr IVPB ONCE [facility] Rx#: [id number] Piperacillin-Tazobactam 3 50 .375 gm In Dextrose/Water 1 50ml.bag @ 12.5 mls/hr IVPB Q8HR [facility] Rx#: [id number] Sodium Chloride 0.9% 1, 160 000 ml @ 20 mls/hr IV . Q24H [facility] Rx#:[id number] Other: Weight 76.7 kg PHYSICAL EXAMINATION: HEENT: Head is atraumatic, normocephalic. Pupils equal, round. Neck is supple. There is elevated jugular venous pressure. HEART EXAMINATION: Heart S1 S2 1 systolic murmur is heard. CHEST EXAMINATION: Lungs reveal diminished air entry to bilateral bases with fine crackles to the bases. ABDOMEN: Soft, nontender. Bowel sounds are heard. No organomegaly noted. EXTREMITIES: 2+ peripheral pulses with trace evidence of peripheral edema and no calf tenderness noted. NEUROLOGIC patient is awake, alert and oriented -3. . Results 05/24/17 00:54 05/24/17 00:54 Cardiac Enzymes 05/24/17 05/24/17 Range/Units 00:54 00:54 AST 41 (17-59) U/L Troponin I 0.015 (0.000-0.034) ng/mL Coagulation 05/24/17 Range/Units 00:54 PT 11.8 (9.0-12.0) sec APTT 28.0 (22.0-30.0) sec CBC 05/24/17 Range/Units 00:54 WBC 6.0 (3.8-10.6) k/uL RBC 3.12 L (4.30-5.90) m/uL Hgb 9.8 L (13.0-17.5) gm/dL Hct 29.5 L (39.0-53.0) % Plt Count 188 (150-450) k/uL Comprehensive Metabolic Panel 05/24/17 Range/Units 00:54 Sodium 124 L (137-145) mmol/L Potassium 4.7 (3.5-5.1) mmol/L Chloride 92 L (98-107) mmol/L Carbon Dioxide 25 (22-30) mmol/L BUN 17 (9-20) mg/dL Creatinine 0.60 L (0.66-1.25) mg/dL Glucose 96 (74-99) mg/dL Calcium 8.6 (8.4-10.2) mg/dL AST 41 (17-59) U/L ALT 22 (21-72) U/L Alkaline Phosphatase 80 (38-126) U/L Total Protein 6.0 L (6.3-8.2) g/dL Albumin 3.2 L (3.5-5.0) g/dL Current Medications Generic Name Dose Route Start Last Admin Trade Name Freq PRN Reason Stop Dose Admin Al Hydroxide/Mg Hydroxide 30 ml 05/24/17 02:33 Maalox PO Q4HR PRN Heartburn Albuterol Sulfate 2.5 mg 05/24/17 08:00 Ventolin Nebulized INHALATION RT-QID [facility] Amlodipine Besylate 5 mg 05/24/17 09:00 Norvasc PO DAILY [facility] Aspirin 81 mg 05/24/17 09:00 Aspirin PO DAILY [facility] Atorvastatin Calcium 80 mg 05/24/17 21:00 Lipitor PO HS [facility] Clopidogrel Bisulfate 75 mg 05/24/17 09:00 Plavix PO DAILY [facility] Furosemide 20 mg 05/24/17 09:00 Lasix PO BID [facility] Heparin Sodium (Porcine) 0 unit 05/24/17 01:31 Heparin IV PER PROTOCOL PRN Low PTT Protocol Heparin Sodium/Dextrose 25,000 500 mls @ 19.15 mls/hr 05/24/17 01:45 01:42 unit/ IV Solution IV 12 units/kg/hr .Q24H [facility] 19.15 mls/hr Protocol Administration 12 UNITS/KG/HR Piperacillin/Tazobactam/ 50 mls @ 12.5 mls/hr 05/24/17 16:00 Dextrose 3.375 gm/ IV Solution IVPB 06/03/17 16:01 Q8HR [facility] Sodium Chloride 1,000 mls @ 20 mls/hr 05/24/17 02:45 05/24/17 03:09 Saline 0.9% IV 20 mls/hr .Q24H [facility] Administration Levofloxacin 750 mg 05/25/17 06:00 Levaquin PO 0600 [facility] Lisinopril 2.5 mg 05/24/17 09:00 Zestril PO BID [facility] Metformin HCl 500 mg 05/24/17 07:30 05/24/17 06:15 Glucophage PO Not Given AC-BID [facility] Metoprolol Tartrate 25 mg 05/24/17 09:00 Lopressor PO BID [facility] Miscellaneous Information 1 each 05/24/17 02:31 Pneumonia Protocol Utilized PO ONCE PRN Per Protocol Multivitamins 1 each 05/24/17 12:00 Theragran PO DAILY@1200 [facility] Oxycodone/Acetaminophen 1 each 05/24/17 02:33 05/24/17 04:07 Percocet 10-325 PO 1 each Q8H PRN Administration Pain Control Pantoprazole Sodium 40 mg 05/24/17 07:30 05/24/17 06:31 Protonix PO Not Given AC-BRKFST [facility] Pregabalin 300 mg 05/24/17 09:00 Lyrica PO BID [facility] Spironolactone 25 mg 05/24/17 09:00 Aldactone PO DAILY [facility] Thiamine HCl 100 mg 05/24/17 12:00 Vitamin B-1 PO BID@1200,1700 [facility] Intake and Output 05/23/17 05/24/17 05/24/17 22:59 06:59 14:59 Intake Total 520 Balance 520 Intake: IV 520 Heparin Sodium,Porcine/ 160 D5w Pmx 25,000 unit In Dextrose/Water 1 500ml. bag @ 12 UNITS/KG/HR 19. 15 mls/hr IV .Q24H [facility] Rx #:[id number] Levofloxacin 750Mg-D5w 150 Pmx 750 mg In Dextrose/ Water 1 150ml.bag @ 100 mls/hr IVPB ONCE STA Rx#: [id number] Piperacillin-Tazobactam 3 50 .375 gm In Dextrose/Water 1 50ml.bag @ 12.5 mls/hr IVPB Q8HR [facility] Rx#: [id number] Sodium Chloride 0.9% 1, 160 000 ml @ 20 mls/hr IV . Q24H [facility] Rx#:[id number] Other: Weight 76.7 kg 05/24/17 00:54 05/24/17 00:54 EKG Interpretations (text) EKG shows a normal sinus rhythm with diffuse ST-T wave changes in the anterior lateral leads. Assessment and Plan Plan: Assessment and plan #1 symptoms of chest heaviness and burning with associated shortness of breath, possible acute coronary syndrome. Initial troponin 0.015. EKG shows normal sinus rhythm with diffuse ST-T wave changes in the anterior lateral leads. A cardiogram with Doppler study which was performed on May 09 revealed an ejection fraction of 25-30% with apical lateral wall motion hypokinesia. #2 recent LAD stenting on May 08 this year. #3 systolic congestive heart failure acute on chronic #4 diabetes #5 hypertension #6 EtOH use Plan We will obtain 2 subsequent troponins, we will also give the patient a dose of IV Lasix now, repeat echocardiogram with Doppler study. If the patient continues to have persistent chest pressure we may need to repeat the cardiac catheterization. Further recommendations will be based on these findings and patient's clinical course. DNP note has been reviewed, I agree with a documented findings and plan of care. Patient was seen and examined.
[2017-05-24] MEDS ORDERED: FUROSEMIDE 20 MG TAB PO SCH (09:00)
[2017-05-24] MEDS: SPIRONOLACTONE 25 MG TAB PO SCH (09:29)
[2017-05-24] MEDS: amLODIPine 5 MG TAB PO SCH (09:29)
[2017-05-24] MEDS: ASPIRIN 81 MG PO SCH (10:03)
[2017-05-24] MEDS: PREGABALIN 100 MG CAP PO SCH ×2 (10:03→20:54)
[2017-05-24] MEDS: LISINOPRIL 2.5 MG TAB PO SCH (10:03)
[2017-05-24] MEDS: CLOPIDOGREL 75 MG TAB PO SCH (10:03)
[2017-05-24] MEDS: METOPROLOL TARTRATE 25 MG TAB PO SCH ×2 (10:04→20:54)
[2017-05-24 10:41] LABS: Creatine Kinase MB 2.5 ng/mL (0.0-2.4)
[2017-05-24 10:50] LABS: Creatine Kinase MB 3.4 ng/mL (0.0-2.4)
[2017-05-24 11:43] LABS: Glucose,Whole Blood 98 mg/dL (75-99)
[2017-05-24] MEDS: MULTIVITAMINS, THERA 1 EACH TAB PO SCH (12:40)
[2017-05-24] MEDS: THIAMINE 100 MG TAB PO SCH ×2 (12:40→17:05)
--- NOTE | 2017-05-24 13:35 | P.HPIM ---
History of Present Illness H&P Date: 05/24/17 This is a 76 year old male who presented to the emergency room via EMS with chest pain. The patient was at [facility] for rehab. He was giving sublinqual nitro without relief and he was brought to the hospital for evaluation. The patient had a recent admission to the hospital from 05/08/2017 to 05/11/2017 for chest pain. He underwent a cardiac catherization and a stent was placed in the LAD. The patient has a history of CVA/TIA, diabetes mellitus, hypertension, osteoarthritis, frequent falls, and alcohol abuse. During his prior hospitalization a CT of the chest was performed which not show evidence of pulmonary embolism. It did show fairly moderate size bilteral pleural effusions with mild central opacity or alveolar edema suggestive of fluid overload. CT of the cervical spine was negative for fracture. His chest xray revealed right greater than left bibasilar infiltrates and/or atelectasis and problable small bilateral pleural effusions. An echo completed showed an EF of 25-30%. A chest x-ray was completed in the ER on 05/24/2017 which showed evidence of congestive heart failure and right lower lobe pneumonia that is worse when compared to his old films. Troponins were 0.015 and 0.013. CK-MB was 2.5 and 3.4. He was admitted to the hospital under the care of Dr. Velasquez. Consults were placed to cardiology. The patient was seen and examined at the bedside. He is requesting to eat. He was given ice chips. He remains on a heparin drip. He was seen by cardiology who recommends dose of lasix, troponins, and repeating echocardiogram. His sodium was 124 this morning. Last admission his sodium was 137. Review of Systems Those systems with pertinent positive or pertinent negative responses have been documented in the HPI Past Medical History Past Medical History: CVA/TIA, Diabetes Mellitus, Hypertension, Myocardial Infarction ([place]), Osteoarthritis (OA) Additional Past Medical History / Comment(s): Diabetic neuropathy chronic back pain , SOME TROUBLE SWALLOING Last Myocardial Infarction Date:: 05/08/2017 History of Any Multi-Drug Resistant Organisms: None Reported Past Surgical History: Back Surgery, Heart Catheterization With Stent Additional Past Surgical History / Comment(s): bilateral cataract removal with implants, right foot surgery, stent to LAD 05/08 Past Anesthesia/Blood Transfusion Reactions: No Reported Reaction Date of Last Stent Placement:: 05/08/2017 Past Psychological History: Depression Smoking Status: Never smoker Past Alcohol Use History: Daily Additional Past Alcohol Use History / Comment(s): 3 BEERS A DAY Past Drug Use History: None Reported - Past Family History Mother Family Medical History: No Reported History Father Family Medical History: Cancer Sister(s) Family Medical History: Cancer Medications and Allergies Home Medications Medication Instructions Recorded Confirmed Type amLODIPine [Norvasc] 5 mg PO DAILY 11/11/16 05/24/17 History metFORMIN HCL [Glucophage] 500 mg PO BID 12/08/16 05/24/17 History Aspirin 81 mg PO DAILY 05/11/17 05/24/17 Rx Atorvastatin [Lipitor] 80 mg PO HS tab 05/11/17 05/24/17 Rx Clopidogrel [Plavix] 75 mg PO DAILY tab 05/11/17 05/24/17 Rx Fluticasone Nasal [place] [Flonase 2 spray EA NOSTRIL DAILY PRN spray 05/11/17 Rx Nasal [place]] Furosemide [Lasix] 20 mg PO BID tab 05/11/17 05/24/17 Rx Lisinopril [Zestril] 2.5 mg PO BID tab 05/11/17 05/24/17 Rx Mag Hydrox/Al Hydrox/Simeth 30 ml PO Q4HR PRN dose 05/11/17 05/24/17 Rx [Maalox] Metoprolol Tartrate [Lopressor] 25 mg PO BID tab 05/11/17 05/24/17 Rx Nitroglycerin Sl Tabs [Nitrostat] 0.4 mg SUBLINGUAL Q5M PRN tab 05/11/17 Rx Pantoprazole [Protonix] 40 mg PO AC-BRKFST tab 05/11/17 05/24/17 Rx Pregabalin [Lyrica] 300 mg PO BID #60 05/11/17 05/24/17 Rx Spironolactone [Aldactone] 25 mg PO DAILY tab 05/11/17 05/24/17 Rx Thiamine [Vitamin B-1] 100 mg PO BID@1200,1700 tab 05/11/17 05/24/17 Rx oxyCODONE-APAP 10-325MG [Percocet 1 tab PO Q8H PRN #30 10/06/17 10/19/17 Rx 10-325 mg] INSULIN LISPRO (humaLOG) [humaLOG See Protocol SQ ACHS 05/24/17 05/24/17 History (formulary)] Multivitamins, Thera [Multivitamin 1 tab PO DAILY 05/24/17 05/24/17 History (formulary)] Allergies Allergy/AdvReac Type Severity Reaction Status Date / Time No Known Allergies Allergy Verified 05/24/17 00:49 Physical Exam Vitals: Vital Signs Temp Pulse Pulse Resp BP BP Pulse Ox 05/24/17 08:39 69 97 05/24/17 08:00 97.0 F L 71 16 96/53 93 L 05/24/17 04:00 97 F L 69 18 108/69 92 L 05/24/17 03:11 97.7 F 66 18 112/61 96 05/24/17 02:32 60 18 106/54 95 05/24/17 01:42 65 18 113/58 93 L 05/24/17 00:57 18 05/24/17 00:56 58 L 18 98/56 94 L 05/24/17 00:39 97.4 F L 66 18 99/56 82 L Intake and Output 05/23/17 05/24/17 05/24/17 22:59 06:59 14:59 Intake Total 520 Balance 520 Intake: IV 520 Heparin Sodium,Porcine/ 160 D5w Pmx 25,000 unit In Dextrose/Water 1 500ml. bag @ 12 UNITS/KG/HR 19. 15 mls/hr IV .Q24H [facility] Rx #:[id number] Levofloxacin 750Mg-D5w 150 Pmx 750 mg In Dextrose/ Water 1 150ml.bag @ 100 mls/hr IVPB ONCE STA Rx#: [id number] Piperacillin-Tazobactam 3 50 .375 gm In Dextrose/Water 1 50ml.bag @ 12.5 mls/hr IVPB Q8HR [facility] Rx#: [id number] Sodium Chloride 0.9% 1, 160 000 ml @ 20 mls/hr IV . Q24H [facility] Rx#:[id number] Other: Weight 76.7 kg 76.7 kg Patient Weight 05/25/17 06:59 Weight 76.7 kg GENERAL: Alert and oriented. Appears in no acute distress. Pleasant. RESPIRATORY: Lungs diminished with crackles at the bases bilaterally. No use of accessory muscles. Patient maintaining oxygen saturation greater than 92%. CARDIOVASCULAR: S1 and S2 noted. Systolic murmur. No JVD noted. EXTREMITIES: No edema noted. Palpable pedal pulses +2. ABDOMEN: No distention noted. Abdomen soft and round. Normal active bowel sounds auscultated 4 quadrants. No pain or tenderness noted upon palpation. Results CBC & Chem 7: 05/24/17 00:54 05/24/17 00:54 Labs: Abnormal Lab Results - Last 24 Hours (Table) 05/24/17 05/24/17 05/24/17 Range/Units 00:54 00:54 00:54 RBC 3.12 L (4.30-5.90) m/uL Hgb 9.8 L (13.0-17.5) gm/dL Hct 29.5 L (39.0-53.0) % INR 1.2 H (<1.2) APTT (22.0-30.0) sec Sodium 124 L (137-145) mmol/L Chloride 92 L (98-107) mmol/L Creatinine 0.60 L (0.66-1.25) mg/dL POC Glucose (mg/dL) (75-99) mg/dL Plasma Lactic Acid Ramirez (0.7-2.0) mmol/L CK-MB (CK-2) (0.0-2.4) ng/mL Total Protein 6.0 L (6.3-8.2) g/dL Albumin 3.2 L (3.5-5.0) g/dL 05/24/17 05/24/17 05/24/17 Range/Units 00:54 02:41 06:07 RBC (4.30-5.90) m/uL Hgb (13.0-17.5) gm/dL Hct (39.0-53.0) % INR (<1.2) APTT (22.0-30.0) sec Sodium (137-145) mmol/L Chloride (98-107) mmol/L Creatinine (0.66-1.25) mg/dL POC Glucose (mg/dL) 100 H (75-99) mg/dL Plasma Lactic Acid Ramirez 0.6 L (0.7-2.0) mmol/L CK-MB (CK-2) 2.5 H* (0.0-2.4) ng/mL Total Protein (6.3-8.2) g/dL Albumin (3.5-5.0) g/dL 05/24/17 05/24/17 Range/Units 07:27 07:27 RBC (4.30-5.90) m/uL Hgb (13.0-17.5) gm/dL Hct (39.0-53.0) % INR (<1.2) APTT 63.9 H (22.0-30.0) sec Sodium (137-145) mmol/L Chloride (98-107) mmol/L Creatinine (0.66-1.25) mg/dL POC Glucose (mg/dL) (75-99) mg/dL Plasma Lactic Acid Ramirez (0.7-2.0) mmol/L CK-MB (CK-2) 3.4 H* (0.0-2.4) ng/mL Total Protein (6.3-8.2) g/dL Albumin (3.5-5.0) g/dL Assessment and Plan Plan: ASSESSMENT: -Chest pain, present on admission -Right lower lobe pneumonia, present on admission -Recent history of cardiac catherization with a stent to the LAD 05/08/2017 -Acute hypoxic respiratory failure, requiring supplemental oxygen -Acute on chronic systolic congestive heart failure, recent echo shows EF 25-30% -Chronic alcohol use, patient drinks minimum of three beers a day -Hyponatremia, present on admission -Essential hypertension -Diabetes mellitus, type II -Osteoarthritis PLAN: -Cardiology on consult. Appreciate recommendations and input -Repeat echo and dose of lasix per cardiology -Consult nephrology for Na 127 -Resume home meds as appropriate -Maintain NPO except for ice chips and medications -Continue empiric antibiotics: levaquin and zosyn -Monitor labs -Await results of blood cultures -Await results of sputum culture -GI prophylaxis: Protonix 40mg daily -DVT prophylaxis: Heparin drip -PT/OT consult -Monitor vital signs and address as appropriate The above impression and plan of care have been discussed and directed by signing physician. Aixa Alarcon, nurse practitioner, acting as scribe for signing physician.
[2017-05-24 13:41] LABS: Hemoglobin A1C 5.9 % (4.2-6.1)
[2017-05-24] MEDS ORDERED: ASPIRIN 325 MG TAB PO STA (13:42)
[2017-05-24] MEDS ORDERED: ALPRAZolam 0.5 MG TAB PO PRN (13:42)
[2017-05-24] MEDS ORDERED: ALPRAZolam 0.25 MG TAB PO PRN (13:42)
[2017-05-24 16:44] LABS: Glucose,Whole Blood 111 mg/dL (75-99)
[2017-05-24] MEDS: FUROSEMIDE 20 MG TAB PO SCH (17:03)
[2017-05-24] MEDS: PIPERACILLIN-TAZOBACTAM 3.375 GM in DEXTROSE/WATER 1 50ML.BAG IVPB SCH (17:05)
[2017-05-24 17:36] LABS: Anion Gap 10 mmol/L; Blood Urea Nitrogen 13 mg/dL (9-20); Calcium 8.8 mg/dL (8.4-10.2); Carbon Dioxide 26 mmol/L (22-30); Chloride 90 mmol/L (98-107); Glucose 95 mg/dL (74-99); Non-African American GFR(MDRD) >60 (>60 ml/min/1.73 sqM); Potassium 4.2 mmol/L (3.5-5.1); Sodium 126 mmol/L (137-145)
[2017-05-24 21:26] LABS: Glucose,Whole Blood 130 mg/dL (75-99)
[2017-05-25] MEDS: LISINOPRIL 2.5 MG TAB PO SCH ×3 (00:07→21:54)
[2017-05-25] MEDS: PIPERACILLIN-TAZOBACTAM 3.375 GM in DEXTROSE/WATER 1 50ML.BAG IVPB SCH ×4 (00:07→23:21)
[2017-05-25] MEDS: HEPARIN SODIUM,PORCINE/D5W PMX 25,000 UNIT in DEXTROSE/WATER 1 500ML.BAG IV SCH (03:13)
[2017-05-25] MEDS ORDERED: ASPIRIN 325 MG TAB PO ONE (05:00)
[2017-05-25] MEDS ORDERED: ATORVASTATIN 80 MG TAB PO ONE (05:00)
[2017-05-25] MEDS ORDERED: SODIUM CHLORIDE 0.9% 1,000 ML in EMPTY BAG 1 BAG IV ONE (06:00)
[2017-05-25 06:14] LABS: Glucose,Whole Blood 104 mg/dL (75-99)
[2017-05-25 06:35] LABS: Basophils % (A) 0 %; CH 32.8; CHCM 33.9; Eosinophils # (A) 0.2 k/uL (0-0.7); Eosinophils % (A) 3 %; HCT 29.2 % (39.0-53.0); HDW 2.81; HGB 9.7 gm/dL (13.0-17.5); Luc # (Auto) 0.19; Luc % (Auto) 4; Lymphocytes # (A) 1.1 k/uL (1.0-4.8); Lymphocytes % (A) 22 %; MCH 32.4 pg (25.0-35.0); MCHC 33.3 g/dL (31.0-37.0); MCV 97.5 fL (80.0-100.0); Mean Platelet Volume 9.2; Monocytes # (A) 0.5 k/uL (0-1.0); Monocytes % (A) 9 %; Neutrophils # (A) 3.1 k/uL (1.3-7.7); Neutrophils % (A) 63 %; RBC 2.99 m/uL (4.30-5.90); WBC (Perox) 5.33
[2017-05-25] MEDS: SODIUM CHLORIDE 0.9% 1,000 ML IV SCH ×2 (06:44→12:08)
[2017-05-25] MEDS: metFORMIN 500 MG TAB PO SCH (06:44)
[2017-05-25] MEDS: METOPROLOL TARTRATE 25 MG TAB PO SCH ×2 (06:50→21:54)
[2017-05-25 06:59] LABS: Anion Gap 9 mmol/L; Blood Urea Nitrogen 10 mg/dL (9-20); Calcium 9.2 mg/dL (8.4-10.2); Carbon Dioxide 25 mmol/L (22-30); Chloride 91 mmol/L (98-107); Glucose 87 mg/dL (74-99); Non-African American GFR(MDRD) >60 (>60 ml/min/1.73 sqM); Potassium 3.9 mmol/L (3.5-5.1); Sodium 125 mmol/L (137-145)
--- NOTE | 2017-05-25 08:18 | XR ---
EXAMINATION TYPE: XR chest 1V DATE OF EXAM: 05/25/2017 COMPARISON: Prior chest x-ray 05/24/2017 HISTORY: Pneumonia TECHNIQUE: Single frontal view of the chest is obtained. FINDINGS: Bilateral airspace disease suspected. Cardiac mediastinal silhouette, pulmonary vascularit y and dinesh are stable. No pneumothorax or sizable pleural effusion evident. IMPRESSION: Correlate for pneumonia, congestive heart failure with pulmonary edema
[2017-05-25] MEDS: SPIRONOLACTONE 25 MG TAB PO SCH (08:32)
[2017-05-25] MEDS: amLODIPine 5 MG TAB PO SCH (08:32)
[2017-05-25] MEDS: CLOPIDOGREL 75 MG TAB PO SCH (08:32)
[2017-05-25] MEDS: LEVOFLOXACIN 750 MG TAB PO SCH (08:32)
[2017-05-25] MEDS: PANTOPRAZOLE 40 MG TABLET PO SCH (08:32)
[2017-05-25] MEDS: ALBUTEROL NEBULIZED 2.5 MG/3 ML INHALATION SCH ×4 (09:23→20:39)
--- NOTE | 2017-05-25 09:27 | P.PN ---
Subjective 05/24/2017 This is a 76 year old male who presented to the emergency room via EMS with chest pain. The patient was at [facility] for rehab. He was giving sublinqual nitro without relief and he was brought to the hospital for evaluation. The patient had a recent admission to the hospital from 05/08/2017 to 05/11/2017 for chest pain. He underwent a cardiac catherization and a stent was placed in the LAD. The patient has a history of CVA/TIA, diabetes mellitus, hypertension, osteoarthritis, frequent falls, and alcohol abuse. During his prior hospitalization a CT of the chest was performed which not show evidence of pulmonary embolism. It did show fairly moderate size bilteral pleural effusions with mild central opacity or alveolar edema suggestive of fluid overload. CT of the cervical spine was negative for fracture. His chest xray revealed right greater than left bibasilar infiltrates and/or atelectasis and problable small bilateral pleural effusions. An echo completed showed an EF of 25-30%. A chest x-ray was completed in the ER on 05/24/2017 which showed evidence of congestive heart failure and right lower lobe pneumonia that is worse when compared to his old films. Troponins were 0.015 and 0.013. CK-MB was 2.5 and 3.4. He was admitted to the hospital under the care of Dr. Velasquez. Consults were placed to cardiology. The patient was seen and examined at the bedside. He is requesting to eat. He was given ice chips. He remains on a heparin drip. He was seen by cardiology who recommends dose of lasix, troponins, and repeating echocardiogram. His sodium was 124 this morning. Last admission his sodium was 137. 05/25/2017 Patient seen and evaluated at the bedside with Dr. Velasquez. Patient very sleepy this morning. The patient remains NPO and is scheduled for a cardiac catherization today. He denies chest pain or pressure this morning. His repeat chest xray this morning shows pneumonia and congestive heart failure with pulmonary edema. He received 40mg lasix yesterday. He is on daily PO lasix. His sodium was 126 yesterday. This morning it is 125. Nephrology has been consulted. Repeat echo was ordered yesterday and results are still pending. He remains on zosyn and levaquin. PT and OT have been consulted. Blood cultures are negative at the 24 hour gabriela. He is afebrile. Blood pressure running in the 90s to low 100s. Patient is maintaining oxygen saturation between 91-93% on 3L NC. Objective - Vital Signs Vital signs: Vital Signs Temp 97.5 F L 05/25/17 03:59 Pulse 91 05/25/17 06:51 Resp 16 05/25/17 03:59 BP 112/61 05/25/17 06:51 Pulse Ox 91 L 05/25/17 03:59 Intake & Output 05/24/17 05/25/17 05/25/17 18:59 06:59 18:59 Intake Total 180 858.644 Output Total 1820 Balance -1640 858.644 Weight 76.7 kg 74.8 kg Intake: IV 370 Heparin Sodium,Porcine/ 160 D5w Pmx 25,000 unit In Dextrose/Water 1 500ml. bag @ 12 UNITS/KG/HR 19. 15 mls/hr IV .Q24H [facility] Rx #:[id number] Piperacillin-Tazobactam 3 50 .375 gm In Dextrose/Water 1 50ml.bag @ 12.5 mls/hr IVPB Q8HR [facility] Rx#: [id number] Sodium Chloride 0.9% 1, 160 000 ml @ 20 mls/hr IV . Q24H [facility] Rx#:[id number] Intake, IV Titration 488.644 Amount Heparin Sodium,Porcine/ 488.644 D5w Pmx 25,000 unit In Dextrose/Water 1 500ml. bag @ 12 UNITS/KG/HR 19. 15 mls/hr IV .Q24H [facility] Rx #:[id number] Oral 180 Output: Urine 1820 Other: Voiding Method Toilet Urinal # Voids 3 1 - Exam GENERAL: Sleepy this morning. Appears in no acute distress. Pleasant. RESPIRATORY: Lungs diminished with crackles at the bases bilaterally. No use of accessory muscles. Patient maintaining oxygen saturation greater than 92%. CARDIOVASCULAR: S1 and S2 noted. Systolic murmur. No JVD noted. EXTREMITIES: No edema noted. Palpable pedal pulses +2. ABDOMEN: No distention noted. Abdomen soft and round. Normal active bowel sounds auscultated 4 quadrants. No pain or tenderness noted upon palpation. - Labs CBC & Chem 7: 05/25/17 05:58 05/25/17 05:58 Labs: Abnormal Lab Results - Last 24 Hours (Table) 05/24/17 05/24/17 05/24/17 Range/Units 00:54 07:27 16:35 RBC (4.30-5.90) m/uL Hgb (13.0-17.5) gm/dL Hct (39.0-53.0) % APTT (22.0-30.0) sec Sodium (137-145) mmol/L Chloride (98-107) mmol/L Creatinine (0.66-1.25) mg/dL POC Glucose (mg/dL) 111 H (75-99) mg/dL Osmolality (280-301) mosm/kg CK-MB (CK-2) 2.5 H* 3.4 H* (0.0-2.4) ng/mL 05/24/17 05/24/17 05/24/17 Range/Units 16:56 16:56 21:24 RBC (4.30-5.90) m/uL Hgb (13.0-17.5) gm/dL Hct (39.0-53.0) % APTT (22.0-30.0) sec Sodium 126 L (137-145) mmol/L Chloride 90 L (98-107) mmol/L Creatinine (0.66-1.25) mg/dL POC Glucose (mg/dL) 130 H (75-99) mg/dL Osmolality 259 L (280-301) mosm/kg CK-MB (CK-2) (0.0-2.4) ng/mL 05/25/17 05/25/17 05/25/17 Range/Units 05:58 05:58 05:58 RBC 2.99 L (4.30-5.90) m/uL Hgb 9.7 L (13.0-17.5) gm/dL Hct 29.2 L (39.0-53.0) % APTT 42.4 H (22.0-30.0) sec Sodium 125 L (137-145) mmol/L Chloride 91 L (98-107) mmol/L Creatinine 0.60 L (0.66-1.25) mg/dL POC Glucose (mg/dL) (75-99) mg/dL Osmolality (280-301) mosm/kg CK-MB (CK-2) (0.0-2.4) ng/mL 05/25/17 Range/Units 06:12 RBC (4.30-5.90) m/uL Hgb (13.0-17.5) gm/dL Hct (39.0-53.0) % APTT (22.0-30.0) sec Sodium (137-145) mmol/L Chloride (98-107) mmol/L Creatinine (0.66-1.25) mg/dL POC Glucose (mg/dL) 104 H (75-99) mg/dL Osmolality (280-301) mosm/kg CK-MB (CK-2) (0.0-2.4) ng/mL Microbiology - Last 24 Hours (Table) 05/24/17 03:05 Blood Culture - Preliminary Blood No Growth after 24 hours Assessment and Plan Plan: ASSESSMENT: -Chest pain, present on admission, etiology unclear, catherization scheduled -Right lower lobe pneumonia, present on admission, sputum culture pending collection -Recent history of cardiac catherization with a stent to the LAD 05/08/2017 -Acute hypoxic respiratory failure, requiring supplemental oxygen -Acute on chronic systolic congestive heart failure, recent echo shows EF 25-30% -Chronic alcohol use, patient drinks minimum of three beers a day -Hyponatremia, present on admission -Essential hypertension -Diabetes mellitus, type II -Osteoarthritis PLAN: -Cardiology on consult. Appreciate recommendations and input -Patient to undergo cardiac cath today -NPO -Await results of repeat echo -May need another dose of IV lasix-will defer to cardiology -Nephrology on consult for hyponatremia. Appreciate recommendations and input. -Continue empiric antibiotics: levaquin and zosyn -Monitor labs -Await results of blood cultures -Await results of sputum culture -GI prophylaxis: Protonix 40mg daily -DVT prophylaxis: Heparin drip -PT/OT consult -Monitor vital signs and address as appropriate -Discharge planning: patient would like to return to [facility] The above impression and plan of care have been discussed and directed by signing physician. Aixa Alarcon, nurse practitioner, acting as scribe for signing physician.
[2017-05-25] MEDS: PREGABALIN 100 MG CAP PO SCH ×2 (10:58→21:54)
[2017-05-25] MEDS: oxyCODONE-APAP 10-325MG 1 EACH TAB PO PRN ×2 (11:01→19:12)
[2017-05-25] MEDS: NITROGLYCERIN SL TABS 0.4 MG TAB SUBLINGUAL PRN ×2 (11:07→11:13)
--- NOTE | 2017-05-25 11:33 | ECHOF ---
Referral Reason:assess lvf MEASUREMENTS -------- HEIGHT: 182.9 cm WEIGHT: 76.7 kg BP: 130/60 IVSd: 1.0 cm (0.6 - 1.1) LVIDd: 6.0 cm (3.9 - 5.3) LVPWd: 0.8 cm (0.6 - 1.1) IVSs: 1.1 cm LVIDs: 4.9 cm LVPWs: 1.4 cm Ao Diam: 4.0 cm (2.0 - 3.7) AV Cusp: 1.2 cm (1.5 - 2.6) LA Diam: 5.0 cm (2.7 - 3.8) MV E Espinoza: 0.68 m/s MV DecT: 188 ms MV A Espinoza: 0.98 m/s MV E/A Ratio: 0.70 AV maxP.16 mmHg AV meanP.29 mmHg RAP: 5.00 mmHg RVSP: 36.87 mmHg FINDINGS -------- Sinus rhythm. This was a techncally difficult study with suboptimal views, , Definity utilized for enhancement of images. The left ventricle is moderately dilated. There is mild concentric left ventricular hypertrophy. There is moderate global hypokinesis of LV . Overall left ventricular systolic function is severely impaired with, an EF between 20 - 25 %. Anterseptal Hypokinesis Lateral hypokinesis Inferior Hypokinesis [place] Hypokinesis. Distal Septal Hypokinesis. The right ventricle is normal in size. The right atrial size is normal. 1.5MG OF DEFINITY UTLIZED: 2 OR MORE WALL SEGMENTS NOT VISUALIZED. There is moderate aortic stenosis present. Peak/mean gradient across the Aortic Valve is 43.16mmHg / 20.29mmHg. Gradient is possible underestimated. Mild mitral regurgitation is present. Mild tricuspid regurgitation present. There is mild pulmonary hypertension. The right ventricular systolic pressure, as measured by Doppler, is 36.87mmHg. There is no pulmonic regurgitation present. The aortic root size is normal. There is no pericardial effusion. CONCLUSIONS -------- 1. This was a techncally difficult study with suboptimal views, , Definity utilized for enhancement of images. 2. Distal Septal Hypokinesis. 3. 1.5MG OF DEFINITY UTLIZED: 2 OR MORE WALL SEGMENTS NOT VISUALIZED. 4. There is moderate aortic stenosis present. 5. Peak/mean gradient across the Aortic Valve is 43.16mmHg / 20.29mmHg. 6. Gradient is possible underestimated. 7. Mild mitral regurgitation is present. 8. Mild tricuspid regurgitation present. 9. There is mild pulmonary hypertension. 10. The right ventricular systolic pressure, as measured by Doppler, is 36.87mmHg. 11. There is no pulmonic regurgitation present. 12. The left ventricle is moderately dilated. 13. The aortic root size is normal. 14. There is no pericardial effusion. 15. There is mild concentric left ventricular hypertrophy. 16. There is moderate global hypokinesis of LV . 17. Overall left ventricular systolic function is severely impaired with, an EF between 20 - 25 %. 18. Anterseptal Hypokinesis 19. Lateral hypokinesis 20. Inferior Hypokinesis 21. [place] Hypokinesis. REAR ADMIRAL: Betsy Ruggiero RDCS
[2017-05-25 11:45] LABS: Glucose,Whole Blood 109 mg/dL (75-99)
[2017-05-25] MEDS ORDERED: LIDOCAINE 2% INJ 20 MG/ML (20 ML MDV) ONE (12:03)
[2017-05-25] MEDS ORDERED: fentaNYL (PF) 50 MCG/ML 2 ML AMP ONE (12:03)
[2017-05-25] MEDS ORDERED: SODIUM CHLORIDE 0.9% 1,000 ML IV ONE (12:08)
[2017-05-25] MEDS ORDERED: fentaNYL (PF) 50 MCG/ML 2 ML AMP IV ONE (12:59)
[2017-05-25] MEDS ORDERED: LIDOCAINE 2% INJ 20 MG/ML SQ ONE (13:00)
[2017-05-25] MEDS ORDERED: BIVALIRUDIN BOLUS 250 MG/50 ML IV ONE (13:20)
[2017-05-25] MEDS ORDERED: BIVALIRUDIN 250 MG in SODIUM CHLORIDE 0.9% 50 ML IV ONE (13:23)
[2017-05-25] MEDS ORDERED: IOHEXOL 350 MG/ML 125ML BOTTLE INJ ONE (13:35)
[2017-05-25] MEDS ORDERED: ZOLPIDEM 5 MG TAB PO PRN (13:46)
[2017-05-25] MEDS ORDERED: ATROPINE SULFATE 0.1 MG/ML 10ML SYRINGE IV PRN (13:46)
[2017-05-25] MEDS ORDERED: MAG HYDROX/AL HYDROX/SIMETH 30 ML CUP PO PRN (13:46)
[2017-05-25] MEDS ORDERED: RX INFO: IV CONTRAST WAS GIVEN 1 EACH MISC MISCELLANE PRN (13:46)
[2017-05-25] MEDS ORDERED: NITROGLYCERIN SL TABS 0.4 MG TAB SUBLINGUAL PRN (13:46)
[2017-05-25] MEDS ORDERED: SODIUM CHLORIDE 0.9% 1,000 ML IV SCH (14:00)
--- NOTE | 2017-05-25 14:15 | P.NPCON ---
History of Present Illness - Reason for Consult hyponatremia - History of Present Illness Reason for consultation: Hyponatremia History of present illness: Patient is a 76-year-old male seen in renal consultation for hyponatremia. His sodium level was 124 on admission. It was rechecked yesterday afternoon and is up to 126. He did receive 20 mg of Lasix last night. Sodium level this morning was 125. Patient initially presented to the hospital with burning chest pain. He underwent a cardiac catheterization this morning and had a stent placed to the LAD. He does have systolic CHF with ejection fraction of 20 -25%. He denies any problems with urination. Oral intake is fair. Denies vomiting or diarrhea. Does admit to drinking anywhere from 2-4 cans of beer almost on a daily basis. Denies drinking excess amounts of water. He was started on IV hydration this morning for prevention of contrast-induced nephropathy. His GFR is at baseline with creatinine at 0.6. Vital signs are stable. General: The patient appeared well nourished and normally developed. HEENT: Head exam is unremarkable. Neck is without jugular venous distension. LUNGS: Lungs are clear to auscultation and percussion. Breath sounds decreased. HEART: Rate and Rhythm are regular. First and second heart sounds normal. No murmurs, rubs or gallops. ABDOMEN: Abdominal exam reveals normal bowel sounds. Non-tender and non- distended. No evidence of peritonitis. EXTREMITITES: No clubbing, cyanosis, or edema. Past Medical History Past Medical History: CVA/TIA, Diabetes Mellitus, Hypertension, Myocardial Infarction (MA), Osteoarthritis (OA) Additional Past Medical History / Comment(s): Diabetic neuropathy chronic back pain , SOME TROUBLE SWALLOING Last Myocardial Infarction Date:: 05/08/2017 History of Any Multi-Drug Resistant Organisms: None Reported Past Surgical History: Back Surgery, Heart Catheterization With Stent Additional Past Surgical History / Comment(s): bilateral cataract removal with implants, right foot surgery, stent to LAD 05/08 Past Anesthesia/Blood Transfusion Reactions: No Reported Reaction Date of Last Stent Placement:: 05/08/2017 Past Psychological History: Depression Smoking Status: Never smoker Past Alcohol Use History: Daily Additional Past Alcohol Use History / Comment(s): 3 BEERS A DAY Past Drug Use History: None Reported - Past Family History Mother Family Medical History: No Reported History Father Family Medical History: Cancer Sister(s) Family Medical History: Cancer Medications and Allergies Home Medications Medication Instructions Recorded Confirmed Type amLODIPine [Norvasc] 5 mg PO DAILY 11/11/16 05/24/17 History metFORMIN HCL [Glucophage] 500 mg PO BID 12/08/16 05/24/17 History Aspirin 81 mg PO DAILY 05/11/17 05/24/17 Rx Atorvastatin [Lipitor] 80 mg PO HS tab 05/11/17 05/24/17 Rx Clopidogrel [Plavix] 75 mg PO DAILY tab 05/11/17 05/24/17 Rx Fluticasone Nasal [place] [Flonase 2 spray EA NOSTRIL DAILY PRN spray 05/11/17 Rx Nasal [place]] Furosemide [Lasix] 20 mg PO BID tab 05/11/17 05/24/17 Rx Lisinopril [Zestril] 2.5 mg PO BID tab 05/11/17 05/24/17 Rx Mag Hydrox/Al Hydrox/Simeth 30 ml PO Q4HR PRN dose 05/11/17 05/24/17 Rx [Maalox] Metoprolol Tartrate [Lopressor] 25 mg PO BID tab 05/11/17 05/24/17 Rx Nitroglycerin Sl Tabs [Nitrostat] 0.4 mg SUBLINGUAL Q5M PRN tab 05/11/17 Rx Pantoprazole [Protonix] 40 mg PO AC-BRKFST tab 05/11/17 05/24/17 Rx Pregabalin [Lyrica] 300 mg PO BID #60 05/11/17 05/24/17 Rx Spironolactone [Aldactone] 25 mg PO DAILY tab 05/11/17 05/24/17 Rx Thiamine [Vitamin B-1] 100 mg PO BID@1200,1700 tab 05/11/17 05/24/17 Rx oxyCODONE-APAP 10-325MG [Percocet 1 tab PO Q8H PRN #30 05/11/17 05/24/17 Rx 10-325 mg] INSULIN LISPRO (humaLOG) [humaLOG See Protocol SQ ACHS 05/24/17 05/24/17 History (formulary)] Multivitamins, Thera [Multivitamin 1 tab PO DAILY 05/24/17 05/24/17 History (formulary)] Allergies Allergy/AdvReac Type Severity Reaction Status Date / Time No Known Allergies Allergy Verified 05/24/17 00:49 Physical Exam Vitals: Vital Signs Temp Pulse Pulse Resp BP Pulse Ox 05/25/17 11:54 97.3 F L 73 20 93/61 94 L 05/25/17 11:31 97.3 F L 73 18 93/61 94 L 05/25/17 09:35 72 05/25/17 09:23 72 05/25/17 08:00 96.9 F L 72 18 114/53 95 05/25/17 06:51 91 112/61 05/25/17 03:59 97.5 F L 62 16 98/50 91 L 05/25/17 00:00 64 18 98/58 93 L 05/24/17 20:00 98.3 F 90 18 99/61 91 L 05/24/17 16:00 97.4 F L 93 20 109/67 94 L Intake and Output 05/24/17 05/25/17 05/25/17 22:59 06:59 14:59 Intake Total 180 858.644 217 Output Total 320 375 Balance -140 858.644 -158 Intake: IV 370 217 Heparin Sodium,Porcine/ 160 D5w Pmx 25,000 unit In Dextrose/Water 1 500ml. bag @ 12 UNITS/KG/HR 19. 15 mls/hr IV .Q24H [facility] Rx #:[id number] Piperacillin-Tazobactam 3 50 .375 gm In Dextrose/Water 1 50ml.bag @ 12.5 mls/hr IVPB Q8HR [facility] Rx#: [id number] Sodium Chloride 0.9% 1, 160 000 ml @ 20 mls/hr IV . Q24H [facility] Rx#:[id number] Intake, IV Titration 488.644 Amount Heparin Sodium,Porcine/ 488.644 D5w Pmx 25,000 unit In Dextrose/Water 1 500ml. bag @ 12 UNITS/KG/HR 19. 15 mls/hr IV .Q24H [facility] Rx #:[id number] Oral 180 Output: Urine 320 375 Other: Voiding Method Toilet Urinal # Voids 1 Weight 74.8 kg Results - Lab Results Most recent lab results Calcium 9.2 mg/dL (8.4-10.2) 05/25/17 05:58 Magnesium 1.6 mg/dL (1.6-2.3) 05/24/17 00:54 05/25/17 05:58 05/25/17 05:58 Assessment and Plan Plan: Assessment: #1. Hyponatremia. Appears euvolemic in nature at this time. Urine osmolality is on the lower side at 288 with urine sodium of 54. He did receive Lasix yesterday. 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 #2. Pneumonia maintained on IV antibiotics. #3. Coronary artery disease status post proximal LAD stent placed this morning. #4. Systolic CHF with ejection fraction of 20-25%. Plan: Patient is currently on IV fluids at 75 mL an hour per cardiology for prevention of contrast-induced nephropathy. Can continue for another 2-4 hours and then Hep-Lock as his chest x-ray was initially suggestive of interstitial edema. 1200 mL fluid restriction. Encouraged oral intake. Repeat sodium level at 6 PM today. Monitor respiratory status closely. Diuretics may need to be resumed soon. Thank you for the consultation. I will continue to follow the patient with you during his hospital stay.
[2017-05-25] MEDS: THIAMINE 100 MG TAB PO SCH ×2 (14:35→17:33)
[2017-05-25] MEDS: FUROSEMIDE 20 MG TAB PO SCH ×2 (14:35→17:32)
[2017-05-25] MEDS: MULTIVITAMINS, THERA 1 EACH TAB PO SCH (14:36)
[2017-05-25 14:49] VITALS: BMI 21.2
--- NOTE | 2017-05-25 15:15 | CC ---
CARDIAC CATHETERIZATION REPORT Mr. Borjas is a 76-year-old male with a known history of coronary disease, who earlier this month presented with an acute myocardial infarction, underwent stenting of a heavily calcified proximal LAD. He had a severely impaired left ventricular systolic function. He presented again to the hospital with symptoms of chest discomfort. He had no new EKG changes or enzymatic changes, but because of the persistent symptoms, recommendation made regarding cardiac catheterization. The procedures, as well as risks and complications were discussed with the patient who is in full understanding and agreement. PROCEDURE: Patient was brought to the wheelabrator operator in a fasting state after receiving fentanyl and Benadryl and achieving moderate conscious sedated state. Using Xylocaine anesthesia, Seldinger technique a 6-Georgian sheath was introduced in the left femoral artery. Selective right and left angiography performed using 6-Georgian 4 bend right and left Helga catheter. Multiple views of the coronary artery including hemiaxial views was obtained. Following that, catheter removed. Images were reviewed. FINDINGS: 1. FLUOROSCOPY: There was severe calcification involving the left anterior descending artery. 2. Left main: This is a short size vessel bifurcating into the left circumflex, left anterior descending artery, left main coronary artery is without any significant obstructive coronary artery disease. 3. Left anterior descending artery: This is a large-sized vessel reaching towards the apex with a wraparound the apex segment giving rise to a moderately sized two diagonal branches. The first one is large in caliber. The stented segment in the LAD is patent at the proximal edge of the stent. There is an area of haziness of 60% to 70% stenosis with normal flow distally. The first diagonal branch is a jailed branch into the stent and has a 80-90% stenosis proximally. 4. Left circumflex: This is a large nondominant vessel giving rise to 2 obtuse marginal branch. The left circumflex as well as branches have no evidence of obstructive disease. 5. Right coronary artery: This is a large dominant vessel bifurcating PDA posterolateral segment and branches. The right coronary artery as well as branches have no evidence of significant obstructive coronary disease. 6. LEFT VENTRICULOGRAM: Left ventriculogram was not performed. CONCLUSION: 1. Heavily calcified proximal LAD. 2. Haziness at the proximal edge of the stented LAD segment. RECOMMENDATION: In view of findings and anatomy, I have recommended proceeding with angioplasty and stenting of the LAD. The procedure as well as risks and complications were discussed with the patient who is in full understanding and agreement. MMMELISAL / IJN: [id number] /
--- NOTE | 2017-05-25 15:30 | CC ---
CARDIAC CATHETERIZATION REPORT Mr. Borjas is a 76-year-old male with a known history of coronary artery disease underwent stenting of the LAD early in May in the setting of an acute AL, presented with symptoms of chest discomfort with no EKG changes or enzymatic changes, but because of the persistent symptoms, he underwent cardiac catheterization, was found to have an area proximal to the stent with some haziness and calcification. In view of that recommendation regarding angioplasty and stenting. The procedures, risks and complication were discussed with the patient who is in full understanding and agreement. PROCEDURE: Using a 6-Ukrainian FR4 guiding catheter and after cannulating the left main, a 0.014 balanced medium weight J-wire was advanced across the lesion and positioned distally. Then a 2.75, 12 Xience Alpine stent was deployed. It was postdilated at 14 atmospheres. After the last inflation, after appropriate wait the balloon and the guidewire were withdrawn back in the guiding catheter. Images were obtained repeated. Those images reveal stable successful stenting. At that point, the guiding catheter, the balloon and the guidewire were removed. The sheath was removed. Hemostasis was obtained with deployment of an Angio-Seal. There was no immediate complication. Patient is returned to his room in stable condition. Of note, the patient received Angiomax per protocol. He had no chest discomfort, but he had EKG changes. RESULTS: Successful stenting of the proximal LAD with reduction of stenosis from 70% to 0%. RECOMMENDATION: Patient will be continued on aspirin, Plavix, beta blockers and statin. He has severe ischemic cardiomyopathy and his left ventricular systolic function will be followed closely. Those findings and recommendation were discussed with the patient and his family who are in full understanding and agreement. MMODL / IJN: [id number] /
--- NOTE | 2017-05-25 15:35 | LTR ---
May 25, [address] Velasquez: I had the pleasure of performing cardiac catheterization on Mr. Borjas at [facility] on May 25, 2017 and a full copy of the procedure note will be forwarded to you. In brief, he was found to have an area of haziness proximal to the stented segment that raises the possibility of a thrombus. In view of that, he underwent stenting of that vessel using a drug-eluting stent. I am hopeful that we will see improvement in his left ventricular systolic function. thank you again for allowing me to participate in his care. Please feel free to call for any questions. Sincerely, MMODL / IJN: [id number] /
[2017-05-25 16:28] LABS: Glucose,Whole Blood 87 mg/dL (75-99)
[2017-05-25 21:05] LABS: Glucose,Whole Blood 133 mg/dL (75-99)
[2017-05-25] MEDS: ATORVASTATIN 80 MG TAB PO SCH (21:54)
[2017-05-26] MEDS: oxyCODONE-APAP 10-325MG 1 EACH TAB PO PRN ×3 (03:03→18:07)
[2017-05-26 06:16] LABS: Glucose,Whole Blood 96 mg/dL (75-99)
[2017-05-26 06:45] LABS: Basophils % (A) 0 %; CHCM 34.3; Eosinophils # (A) 0.1 k/uL (0-0.7); Eosinophils % (A) 2 %; HCT 29.9 % (39.0-53.0); HDW 2.91; HGB 9.6 gm/dL (13.0-17.5); Luc # (Auto) 0.17; Luc % (Auto) 4; Lymphocytes # (A) 0.8 k/uL (1.0-4.8); Lymphocytes % (A) 19 %; MCH 30.1 pg (25.0-35.0); MCHC 32.1 g/dL (31.0-37.0); MCV 93.9 fL (80.0-100.0); Mean Platelet Volume 9.4; Monocytes # (A) 0.6 k/uL (0-1.0); Monocytes % (A) 14 %; Neutrophils # (A) 2.5 k/uL (1.3-7.7); Neutrophils % (A) 61 %; RBC 3.18 m/uL (4.30-5.90); RDW 13.7 % (11.5-15.5); WBC (Perox) 4.14
[2017-05-26] MEDS: LEVOFLOXACIN 750 MG TAB PO SCH (06:51)
[2017-05-26] MEDS: PANTOPRAZOLE 40 MG TABLET PO SCH (06:51)
[2017-05-26 07:07] LABS: Anion Gap 8 mmol/L; Blood Urea Nitrogen 7 mg/dL (9-20); Carbon Dioxide 27 mmol/L (22-30); Chloride 93 mmol/L (98-107); Glucose 80 mg/dL (74-99); Non-African American GFR(MDRD) >60 (>60 ml/min/1.73 sqM); Potassium 3.7 mmol/L (3.5-5.1); Sodium 128 mmol/L (137-145)
[2017-05-26] MEDS: LISINOPRIL 2.5 MG TAB PO SCH ×2 (08:14→21:53)
[2017-05-26] MEDS: FUROSEMIDE 20 MG TAB PO SCH (08:14)
[2017-05-26] MEDS: THIAMINE 100 MG TAB PO SCH ×2 (08:14→16:53)
[2017-05-26] MEDS: SPIRONOLACTONE 25 MG TAB PO SCH (08:14)
[2017-05-26] MEDS: MULTIVITAMINS, THERA 1 EACH TAB PO SCH (08:14)
[2017-05-26] MEDS: CLOPIDOGREL 75 MG TAB PO SCH (08:14)
[2017-05-26] MEDS: PREGABALIN 100 MG CAP PO SCH ×2 (08:14→21:53)
[2017-05-26] MEDS: METOPROLOL TARTRATE 25 MG TAB PO SCH ×2 (08:15→21:53)
[2017-05-26] MEDS: PIPERACILLIN-TAZOBACTAM 3.375 GM in DEXTROSE/WATER 1 50ML.BAG IVPB SCH ×3 (08:48→23:18)
[2017-05-26] MEDS: ALBUTEROL NEBULIZED 2.5 MG/3 ML INHALATION SCH ×4 (08:56→20:17)
[2017-05-26] MEDS: ASPIRIN 81 MG PO SCH (09:38)
--- NOTE | 2017-05-26 10:34 | P.PN ---
Subjective Progress Note Date: 05/26/17 Principal diagnosis: This is 76-year-old male seen in consultation because of hyponatremia. Sodium was 124 on admission. 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 He is better as far as the hyponatremia is concerned with sodium going up to 128. Main problem that he is complaining off is bilateral pain in his feet and lower legs from chronic paresthesias. Supposedly he was on Percocet and Lyrica Appetite is poor Denies any chest pain shortness of breath cough nausea vomiting diarrhea Objective - Vital Signs Vital signs: Vital Signs Temp 97.1 F L 05/26/17 08:14 Pulse 81 05/26/17 08:14 Resp 18 05/26/17 08:14 BP 100/55 05/26/17 08:14 Pulse Ox 96 05/26/17 08:56 Intake & Output 05/25/17 05/26/17 05/26/17 18:59 06:59 18:59 Intake Total 1017 240 Output Total 775 550 300 Balance 242 -550 -60 Weight 74.8 kg 74.4 kg Intake: IV 317 Piperacillin-Tazobactam 3 100 .375 gm In Dextrose/Water 1 50ml.bag @ 12.5 mls/hr IVPB Q8HR [facility] Rx#: [id number] Intake, IV Titration 600 Amount Sodium Chloride 0.9% 1, 600 000 ml @ 75 mls/hr IV . [id number] [facility] Rx#:[id number] Oral 100 240 Output: Urine 775 550 300 Other: Voiding Method Toilet Urinal On examination awake alert oriented Looks weak and tired HEENT exam no JVP neck is supple no facial asymmetry pupils are equal Lungs are clear to auscultation and fair air entry bilaterally Heart sounds are unremarkable no murmur rub gallop Abdomen soft nontender. No masses felt nontender nondistended Extremity exam was no edema he has a bandage on the left foot. Neurologically awake alert oriented but profoundly weak had difficulty sitting up - Labs CBC & Chem 7: 05/26/17 05:38 05/26/17 05:38 Labs: Abnormal Lab Results - Last 24 Hours (Table) 05/25/17 05/25/17 05/25/17 Range/Units 11:44 18:44 21:02 RBC (4.30-5.90) m/uL Hgb (13.0-17.5) gm/dL Hct (39.0-53.0) % Lymphocytes # (1.0-4.8) k/uL Sodium 124 L (137-145) mmol/L Chloride (98-107) mmol/L BUN (9-20) mg/dL POC Glucose (mg/dL) 109 H 133 H (75-99) mg/dL 05/26/17 05/26/17 Range/Units 05:38 05:38 RBC 3.18 L (4.30-5.90) m/uL Hgb 9.6 L (13.0-17.5) gm/dL Hct 29.9 L (39.0-53.0) % Lymphocytes # 0.8 L (1.0-4.8) k/uL Sodium 128 L (137-145) mmol/L Chloride 93 L (98-107) mmol/L BUN 7 L (9-20) mg/dL POC Glucose (mg/dL) (75-99) mg/dL Microbiology - Last 24 Hours (Table) 05/24/17 03:05 Blood Culture - Preliminary Blood No Growth after 48 hours Assessment and Plan Assessment: Impression 1. Hyponatremia secondary to pain, [place] and possible CHF. Sodium improved from 124 mEq to 128. 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 Creatinine 0.6 2. Anemia hemoglobin is 9.6. Down from 9.8 on admission but previously on 04/2017 was 10.8 and on 04/24/2017 is 12 so slowly going down. Cause not very clear. 3. ASHD with chest pain status post cardiaccatheterization and stenting stable hemodynamically. 4. Poor ejection fraction 25% Recommendation. No changes in medications. Maintain Lasix 20 twice a day and Aldactone 25 mg a day because of possible CHF. Check orthostatic changes. Follow labs
[2017-05-26 11:47] LABS: Glucose,Whole Blood 110 mg/dL (75-99)
[2017-05-26 13:17] LABS: Reticulocyte % 1.6 % (0.5-2.0)
[2017-05-26] MEDS: FUROSEMIDE 10 MG/ML 4 ML VIAL IV SCH ×2 (13:50→21:53)
[2017-05-26 16:37] LABS: Glucose,Whole Blood 127 mg/dL (75-99)
--- NOTE | 2017-05-26 17:07 | PN ---
PROGRESS NOTE This patient underwent stent to the LAD yesterday. He is feeling better. The patient is not in any significant respiratory distress. Denies any chest pain, denies any neck pain. The patient's blood pressure was 103/52 mmHg. First and second heart sounds are normal. There is ejection systolic murmur of aortic stenosis noted. Lungs reveal bilateral basilar rales. IMPRESSION: 1. Status post stent to the LAD. 2. Patient has a moderate to severe aortic stenosis which needs to be evaluated further. 3. Ischemic cardiomyopathy. We will continue the patient on IV Lasix for next 48 hours. Recheck the chest x-ray on Sunday. MMODL / IJN: [id number] /
[2017-05-26 17:14] LABS: Iron Saturation 12.6 (15.00-50.00)
[2017-05-26 21:35] LABS: Glucose,Whole Blood 102 mg/dL (75-99)
[2017-05-26] MEDS: ATORVASTATIN 80 MG TAB PO SCH (21:53)
--- NOTE | 2017-05-26 23:52 | P.PN ---
Subjective Progress Note Date: 05/26/17 Principal diagnosis: NSTEMI This is a 76 year old male who presented to the emergency room via EMS with chest pain. The patient was at [facility] for rehab. He was giving sublinqual nitro without relief and he was brought to the hospital for evaluation. The patient had a recent admission to the hospital from 05/08/2017 to 05/11/2017 for chest pain. He underwent a cardiac catherization and a stent was placed in the LAD. The patient has a history of CVA/TIA, diabetes mellitus, hypertension, osteoarthritis, frequent falls, and alcohol abuse. During his prior hospitalization a CT of the chest was performed which not show evidence of pulmonary embolism. It did show fairly moderate size bilteral pleural effusions with mild central opacity or alveolar edema suggestive of fluid overload. CT of the cervical spine was negative for fracture. His chest xray revealed right greater than left bibasilar infiltrates and/or atelectasis and problable small bilateral pleural effusions. An echo completed showed an EF of 25-30%. A chest x-ray was completed in the ER on 05/24/2017 which showed evidence of congestive heart failure and right lower lobe pneumonia that is worse when compared to his old films. Troponins were 0.015 and 0.013. CK-MB was 2.5 and 3.4. He was admitted to the hospital under the care of Dr. Velasquez. Consults were placed to cardiology. The patient was seen and examined at the bedside. He is requesting to eat. He was given ice chips. He remains on a heparin drip. He was seen by cardiology who recommends dose of lasix, troponins, and repeating echocardiogram. His sodium was 124 this morning. Last admission his sodium was 137. 05/25/2017 Patient seen and evaluated at the bedside with Dr. Velasquez. Patient very sleepy this morning. The patient remains NPO and is scheduled for a cardiac catherization today. He denies chest pain or pressure this morning. His repeat chest xray this morning shows pneumonia and congestive heart failure with pulmonary edema. He received 40mg lasix yesterday. He is on daily PO lasix. His sodium was 126 yesterday. This morning it is 125. Nephrology has been consulted. Repeat echo was ordered yesterday and results are still pending. He remains on zosyn and levaquin. PT and OT have been consulted. Blood cultures are negative at the 24 hour gabriela. He is afebrile. Blood pressure running in the 90s to low 100s. Patient is maintaining oxygen saturation between 91-93% on 3L NC. 05/26/2017 Patient today denied any complaints of chest pain. Improved short of breath. Patient had stent placement yesterday. Sodium level improved. Nephrology and cardiology is following this patient. Continued on antibiotics in the form of Zosyn and Levaquin. Objective - Vital Signs Vital signs: Vital Signs Temp 97.4 F L 05/26/17 15:13 Pulse 84 05/26/17 15:13 Resp 18 05/26/17 15:13 BP 115/71 05/26/17 15:13 Pulse Ox 94 L 05/26/17 15:13 Intake & Output 05/26/17 05/26/17 05/27/17 06:59 18:59 06:59 Intake Total 512 Output Total 550 650 Balance -550 -138 Weight 74.4 kg Intake: IV 50 Piperacillin-Tazobactam 3 50 .375 gm In Dextrose/Water 1 50ml.bag @ 12.5 mls/hr IVPB Q8HR [facility] Rx#: [id number] Oral 462 Output: Urine 550 650 Other: Voiding Method Toilet Urinal - Exam GENERAL: Sleepy this morning. Appears in no acute distress. Pleasant. RESPIRATORY: Lungs diminished with crackles at the bases bilaterally. No use of accessory muscles. Patient maintaining oxygen saturation greater than 92%. CARDIOVASCULAR: S1 and S2 noted. Systolic murmur. No JVD noted. EXTREMITIES: No edema noted. Palpable pedal pulses +2. ABDOMEN: No distention noted. Abdomen soft and round. Normal active bowel sounds auscultated 4 quadrants. No pain or tenderness noted upon palpation. - Labs CBC & Chem 7: 05/26/17 05:38 05/26/17 05:38 Labs: Abnormal Lab Results - Last 24 Hours (Table) 05/25/17 05/26/17 05/26/17 Range/Units 21:02 05:38 05:38 RBC 3.18 L (4.30-5.90) m/uL Hgb 9.6 L (13.0-17.5) gm/dL Hct 29.9 L (39.0-53.0) % Lymphocytes # 0.8 L (1.0-4.8) k/uL Sodium 128 L (137-145) mmol/L Chloride 93 L (98-107) mmol/L BUN 7 L (9-20) mg/dL POC Glucose (mg/dL) 133 H (75-99) mg/dL 05/26/17 05/26/17 Range/Units 11:35 16:32 RBC (4.30-5.90) m/uL Hgb (13.0-17.5) gm/dL Hct (39.0-53.0) % Lymphocytes # (1.0-4.8) k/uL Sodium (137-145) mmol/L Chloride (98-107) mmol/L BUN (9-20) mg/dL POC Glucose (mg/dL) 110 H 127 H (75-99) mg/dL Microbiology - Last 24 Hours (Table) 05/24/17 03:05 Blood Culture - Preliminary Blood No Growth after 48 hours Assessment and Plan Assessment: -Unstable angina status post And stent placement to LAD - Ischemic cardio myopathy ejection fraction 20% - Moderate to severe aortic stenosis -Right lower lobe pneumonia, present on admission, sputum culture pending collection -Recent history of cardiac catherization with a stent to the LAD 05/08/2017 -Acute hypoxic respiratory failure, requiring supplemental oxygen -Acute on chronic systolic congestive heart failure, recent echo shows EF 25-30% -Chronic alcohol use, patient drinks minimum of three beers a day -Hyponatremia. Possibly due to SIADH. Nephrology is following the patient -Essential hypertension -Diabetes mellitus, type II -Osteoarthritis PLAN: -Cardiology on consult. Appreciate recommendations and input -Continue with Lasix -Nephrology on consult for hyponatremia. Appreciate recommendations and input. -Continue empiric antibiotics: levaquin and zosyn -Monitor labs -GI prophylaxis: Protonix 40mg daily -DVT prophylaxis: Heparin drip -PT/OT consult -Monitor vital signs and address as appropriate -Discharge planning: patient would like to return to [facility] Time with Patient: Greater than 30
[2017-05-27] MEDS: oxyCODONE-APAP 10-325MG 1 EACH TAB PO PRN ×2 (05:46→14:51)
[2017-05-27] MEDS: PANTOPRAZOLE 40 MG TABLET PO SCH (05:48)
[2017-05-27] MEDS: LEVOFLOXACIN 750 MG TAB PO SCH (05:48)
[2017-05-27 05:51] LABS: Glucose,Whole Blood 87 mg/dL (75-99)
[2017-05-27 07:11] LABS: Basophils % (A) 0 %; CH 31.4; CHCM 34.1; Eosinophils # (A) 0.3 k/uL (0-0.7); Eosinophils % (A) 6 %; HCT 31.6 % (39.0-53.0); HGB 10.3 gm/dL (13.0-17.5); Luc # (Auto) 0.26; Luc % (Auto) 4; Lymphocytes # (A) 1.2 k/uL (1.0-4.8); Lymphocytes % (A) 20 %; MCH 30.1 pg (25.0-35.0); MCHC 32.5 g/dL (31.0-37.0); MCV 92.5 fL (80.0-100.0); Monocytes # (A) 0.8 k/uL (0-1.0); Monocytes % (A) 14 %; Neutrophils # (A) 3.4 k/uL (1.3-7.7); Neutrophils % (A) 56 %; RBC 3.42 m/uL (4.30-5.90); WBC (Perox) 5.95
[2017-05-27] MEDS: ALBUTEROL NEBULIZED 2.5 MG/3 ML INHALATION SCH ×4 (08:00→20:01)
[2017-05-27] MEDS: PIPERACILLIN-TAZOBACTAM 3.375 GM in DEXTROSE/WATER 1 50ML.BAG IVPB SCH ×2 (08:06→17:04)
[2017-05-27] MEDS: CLOPIDOGREL 75 MG TAB PO SCH (08:06)
[2017-05-27] MEDS: THIAMINE 100 MG TAB PO SCH ×2 (08:06→17:04)
[2017-05-27] MEDS: ASPIRIN 81 MG PO SCH (08:06)
[2017-05-27] MEDS: MULTIVITAMINS, THERA 1 EACH TAB PO SCH (08:06)
[2017-05-27] MEDS: PREGABALIN 100 MG CAP PO SCH ×2 (10:34→22:05)
[2017-05-27 11:28] LABS: Glucose,Whole Blood 213 mg/dL (75-99)
[2017-05-27] MEDS: LISINOPRIL 2.5 MG TAB PO SCH (11:40)
[2017-05-27] MEDS: FUROSEMIDE 10 MG/ML 4 ML VIAL IV SCH ×2 (11:51→22:06)
[2017-05-27] MEDS: SPIRONOLACTONE 25 MG TAB PO SCH (11:51)
[2017-05-27] MEDS: METOPROLOL TARTRATE 25 MG TAB PO SCH ×2 (11:51→22:06)
[2017-05-27] MEDS: INSULIN LISPRO (humaLOG) 300 UNIT/3 ML VIAL SQ SCH ×3 (13:08→22:07)
--- NOTE | 2017-05-27 13:47 | XR ---
EXAMINATION TYPE: XR chest 2V DATE OF EXAM: 05/27/2017 HISTORY: f/u chf. REFERENCE: Previous study dated 05/25/2017. FINDINGS: Right and left basilar airspace disease has largely cleared. Heart size is normal. Pleural spaces are clear. IMPRESSION: RESOLVING, BILATERAL INFILTRATES.
--- NOTE | 2017-05-27 13:57 | P.PN ---
Subjective Progress Note Date: 05/27/17 Principal diagnosis: Chest pain This is a 76-year-old gentleman who underwent angioplasty with stenting of the LAD, he also has moderate to severe aortic stenosis. Patient has known ischemic cardiomyopathy, hypertension, hyperlipidemia. He is in some mild failure and is currently on IV Lasix. We will obtain lytes BUN creatinine today. Patient is putting out urine, sitting up at the bedside at the time of my examination this morning, complaining of mild shortness of breath. We will repeat a chest x-ray. Objective - Vital Signs Vital signs: Vital Signs Temp 97.8 F 05/27/17 08:00 Pulse 85 05/27/17 08:00 Resp 18 05/27/17 08:00 BP 86/46 05/27/17 08:00 Pulse Ox 97 05/27/17 08:00 Intake & Output 05/26/17 05/27/17 05/27/17 18:59 06:59 18:59 Intake Total 512 50 480 Output Total 650 Balance -138 50 480 Weight 74.5 kg Intake: IV 50 0 Piperacillin-Tazobactam 3 50 0 .375 gm In Dextrose/Water 1 50ml.bag @ 12.5 mls/hr IVPB Q8HR [facility] Rx#: [id number] Intake, IV Titration 50 Amount Piperacillin-Tazobactam 3 50 .375 gm In Dextrose/Water 1 50ml.bag @ 12.5 mls/hr IVPB Q8HR [facility] Rx#: [id number] Oral 462 480 Output: Urine 650 Other: Voiding Method Toilet Toilet Urinal Urinal # Voids 300 - Exam PHYSICAL EXAMINATION: HEENT: Head is atraumatic, normocephalic. Pupils equal, round. Neck is supple. There is no elevated jugular venous pressure. HEART EXAMINATION: S1 and S2 1 systolic ejection murmur is heard. CHEST EXAMINATION: Reveal fine rales to bilateral bases. ABDOMEN: Soft, nontender. Bowel sounds are heard. No organomegaly noted. EXTREMITIES:[ 2+ peripheral pulses with no evidence of peripheral edema and no calf tenderness noted]. NEUROLOGIC [patient is awake, alert and oriented -3.] . - Labs CBC & Chem 7: 05/27/17 05:46 05/26/17 05:38 Labs: Abnormal Lab Results - Last 24 Hours (Table) 05/26/17 05/26/1705/27/17 Range/Units 16:32 21:11 05:46 RBC 3.42 L (4.30-5.90) m/uL Hgb 10.3 L (13.0-17.5) gm/dL Hct 31.6 L (39.0-53.0) % POC Glucose (mg/dL) 127 H 102 H (75-99) mg/dL 05/27/17 Range/Units 11:23 RBC (4.30-5.90) m/uL Hgb (13.0-17.5) gm/dL Hct (39.0-53.0) % POC Glucose (mg/dL) 213 H (75-99) mg/dL Microbiology - Last 24 Hours (Table) 05/24/17 03:05 Blood Culture - Preliminary Blood No Growth after 72 hours Assessment and Plan Plan: Assessment and plan #1 symptoms of chest heaviness and burning with associated shortness of breath, suggestive of acute coronary syndrome. Initial troponin 0.015. Status post LAD stent. #2 recent LAD stenting on May 08 this year. #3 systolic congestive heart failure acute on chronic #4 diabetes #5 hypertension #6 EtOH use Plan We will repeat the patient's chest x-ray, continue IV Lasix for 24 hours. DNP note has been reviewed, I agree with a documented findings and plan of care. Patient was seen and examined.
[2017-05-27 16:49] LABS: Glucose,Whole Blood 146 mg/dL (75-99)
[2017-05-27 21:42] LABS: Glucose,Whole Blood 212 mg/dL (75-99)
[2017-05-27] MEDS: ATORVASTATIN 80 MG TAB PO SCH (22:06)
[2017-05-28] MEDS: PIPERACILLIN-TAZOBACTAM 3.375 GM in DEXTROSE/WATER 1 50ML.BAG IVPB SCH ×4 (00:31→23:32)
--- NOTE | 2017-05-28 03:17 | PN ---
PROGRESS NOTE Patient is seen for followup for hyponatremia secondary to SIADH. His sodium was up to 128. We do not have a sodium from this the morning. The patient is currently sitting up in bed. He is comfortable, not in any acute distress. Blood pressure 91/54, heart rate 64 per minute. He is afebrile. Examination of the heart S1, S2. Examination lungs bilateral breath sounds are heard. Abdomen is soft, nontender. Examination of lower extremity shows no evidence of edema. LABS: Not available from today. His sodium was 128 yesterday. ASSESSMENT: 1. Hyponatremia secondary to SIADH currently maintained on Lasix 40 mg IV q.12 hours, which we will continue. 2. Cardiomyopathy with ejection fraction of about 25%. 3. Anemia with no active bleeding noted at this time. Check iron studies if not done. PLAN: Repeat labs in a.m. Check iron studies. MMODL / IJN: [id number] /
[2017-05-28 06:17] LABS: Glucose,Whole Blood 107 mg/dL (75-99)
[2017-05-28 06:32] LABS: Basophils % (A) 0 %; CH 31.1; CHCM 34.2; Eosinophils # (A) 0.4 k/uL (0-0.7); Eosinophils % (A) 6 %; HCT 30.2 % (39.0-53.0); Luc # (Auto) 0.24; Luc % (Auto) 4; Lymphocytes # (A) 1.1 k/uL (1.0-4.8); Lymphocytes % (A) 16 %; MCH 30.2 pg (25.0-35.0); MCV 91.2 fL (80.0-100.0); Mean Platelet Volume 8.5; Monocytes # (A) 0.8 k/uL (0-1.0); Monocytes % (A) 12 %; Neutrophils # (A) 4.2 k/uL (1.3-7.7); Neutrophils % (A) 62 %; RBC 3.31 m/uL (4.30-5.90); RDW 12.8 % (11.5-15.5); WBC 6.7 k/uL (3.8-10.6); WBC (Perox) 6.55
[2017-05-28] MEDS: INSULIN LISPRO (humaLOG) 300 UNIT/3 ML VIAL SQ SCH ×4 (06:43→21:03)
[2017-05-28] MEDS: LEVOFLOXACIN 750 MG TAB PO SCH (06:44)
[2017-05-28] MEDS: PANTOPRAZOLE 40 MG TABLET PO SCH (06:45)
[2017-05-28] MEDS: ALBUTEROL NEBULIZED 2.5 MG/3 ML INHALATION SCH ×4 (08:29→20:16)
[2017-05-28] MEDS: METOPROLOL TARTRATE 25 MG TAB PO SCH ×2 (08:33→21:03)
[2017-05-28] MEDS: PREGABALIN 100 MG CAP PO SCH ×2 (08:33→21:03)
[2017-05-28] MEDS: CLOPIDOGREL 75 MG TAB PO SCH (08:33)
[2017-05-28] MEDS: ASPIRIN 81 MG PO SCH (08:33)
[2017-05-28] MEDS: SPIRONOLACTONE 25 MG TAB PO SCH (08:33)
[2017-05-28] MEDS: oxyCODONE-APAP 10-325MG 1 EACH TAB PO PRN ×3 (08:33→23:31)
[2017-05-28] MEDS: FUROSEMIDE 10 MG/ML 4 ML VIAL IV SCH (08:34)
--- NOTE | 2017-05-28 09:20 | P.PN ---
Subjective Patient is seen in follow-up for hyponatremia. Sodium level improved with diuresis and was up to 128 as of May 26. No labs since then. Patient's currently resting in bed. He denies any chest pain or shortness of breath. Denies cough. No vomiting or diarrhea. He does of systolic CHF with ejection fraction of 25%. Currently being treated for pneumonia. Vital signs are stable. General: The patient appeared well nourished and normally developed. HEENT: Head exam is unremarkable. Neck is without jugular venous distension. LUNGS: Lungs are clear to auscultation and percussion. Breath sounds decreased. HEART: Rate and Rhythm are regular. First and second heart sounds normal. No murmurs, rubs or gallops. ABDOMEN: Abdominal exam reveals normal bowel sounds. Non-tender and non- distended. No evidence of peritonitis. EXTREMITITES: No clubbing, cyanosis, or edema. Objective - Vital Signs Vital signs: Vital Signs Temp 97.6 F 05/28/17 04:00 Pulse 77 05/28/17 04:00 Resp 16 05/28/17 04:00 BP 108/60 05/28/17 04:00 Pulse Ox 95 05/28/17 08:16 Intake & Output 05/27/17 05/28/17 05/28/17 18:59 06:59 18:59 Intake Total 720 220 Output Total 2 500 450 Balance 718 -500 -230 Weight 73 kg Intake: IV 0 Piperacillin-Tazobactam 3 0 .375 gm In Dextrose/Water 1 50ml.bag @ 12.5 mls/hr IVPB Q8HR [facility] Rx#: [id number] Oral 720 220 Output: Urine 2 500 450 Other: Voiding Method Toilet Urinal # Voids 1 2 - Labs CBC & Chem 7: 05/28/17 05:41 05/26/17 05:38 Labs: Abnormal Lab Results - Last 24 Hours (Table) 05/26/17 05/27/17 05/27/17 Range/Units 05:38 11:23 16:35 RBC (4.30-5.90) m/uL Hgb (13.0-17.5) gm/dL Hct (39.0-53.0) % POC Glucose (mg/dL) 213 H 146 H (75-99) mg/dL Iron 32 L (65-175) ug/dL Iron Saturation 12.60 L (15.00-50.00) 05/27/17 05/28/17 05/28/17 Range/Units 21:39 05:41 05:53 RBC 3.31 L (4.30-5.90) m/uL Hgb 10.0 L (13.0-17.5) gm/dL Hct 30.2 L (39.0-53.0) % POC Glucose (mg/dL) 212 H 107 H (75-99) mg/dL Iron (65-175) ug/dL Iron Saturation (15.00-50.00) Microbiology - Last 24 Hours (Table) 05/24/17 03:05 Blood Culture - Preliminary Blood No Growth after 96 hours Assessment and Plan Plan: Assessment: #1. Hyponatremia. Appears euvolemic in nature at this time. Urine osmolality is on the lower side at 288 with urine sodium of 54. He did receive Lasix yesterday. 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 #2. Pneumonia maintained on IV antibiotics. #3. Coronary artery disease status post proximal LAD stent May 25. #4. Systolic CHF with ejection fraction of 20-25%. #5. Anemia with iron deficiency. Plan: Continue Lasix 40 mg IV twice daily for now. 1200 mL fluid restriction. Encouraged oral intake. Check labs this morning and again tomorrow morning. May be able to transition Lasix to oral soon. Ferrlecit 125 mg IV daily for 3 days. First dose today.
[2017-05-28 09:22] LABS: Anion Gap 9 mmol/L; Blood Urea Nitrogen 10 mg/dL (9-20); Calcium 8.7 mg/dL (8.4-10.2); Carbon Dioxide 30 mmol/L (22-30); Chloride 88 mmol/L (98-107); Glucose 200 mg/dL (74-99); Non-African American GFR(MDRD) >60 (>60 ml/min/1.73 sqM); Sodium 127 mmol/L (137-145)
[2017-05-28] MEDS ORDERED: Potassium Replacement Protocol 1 EACH MISC MISCELLANE PRN (09:58)
[2017-05-28] MEDS: LISINOPRIL 2.5 MG TAB PO SCH ×2 (10:35→21:03)
[2017-05-28] MEDS: SODIUM FERRIC GLUCONAT-SUCROSE 125 MG in SODIUM CHLORIDE 0.9% 100 ML IVPB SCH (10:59)
[2017-05-28] MEDS: POTASSIUM CHLORIDE ER 20 MEQ TAB.ER PO SCH ×3 (10:59→15:22)
[2017-05-28 11:55] LABS: Glucose,Whole Blood 210 mg/dL (75-99)
[2017-05-28] MEDS: THIAMINE 100 MG TAB PO SCH ×2 (11:59→16:38)
[2017-05-28] MEDS: MULTIVITAMINS, THERA 1 EACH TAB PO SCH (12:00)
--- NOTE | 2017-05-28 13:56 | P.PN ---
Subjective 05/24/2017 This is a 76 year old male who presented to the emergency room via EMS with chest pain. The patient was at [facility] for rehab. He was giving sublinqual nitro without relief and he was brought to the hospital for evaluation. The patient had a recent admission to the hospital from 05/08/2017 to 05/11/2017 for chest pain. He underwent a cardiac catherization and a stent was placed in the LAD. The patient has a history of CVA/TIA, diabetes mellitus, hypertension, osteoarthritis, frequent falls, and alcohol abuse. During his prior hospitalization a CT of the chest was performed which not show evidence of pulmonary embolism. It did show fairly moderate size bilteral pleural effusions with mild central opacity or alveolar edema suggestive of fluid overload. CT of the cervical spine was negative for fracture. His chest xray revealed right greater than left bibasilar infiltrates and/or atelectasis and problable small bilateral pleural effusions. An echo completed showed an EF of 25-30%. A chest x-ray was completed in the ER on 05/24/2017 which showed evidence of congestive heart failure and right lower lobe pneumonia that is worse when compared to his old films. Troponins were 0.015 and 0.013. CK-MB was 2.5 and 3.4. He was admitted to the hospital under the care of Dr. Velasquez. Consults were placed to cardiology. The patient was seen and examined at the bedside. He is requesting to eat. He was given ice chips. He remains on a heparin drip. He was seen by cardiology who recommends dose of lasix, troponins, and repeating echocardiogram. His sodium was 124 this morning. Last admission his sodium was 137. 05/25/2017 Patient seen and evaluated at the bedside with Dr. Velasquez. Patient very sleepy this morning. The patient remains NPO and is scheduled for a cardiac catherization today. He denies chest pain or pressure this morning. His repeat chest xray this morning shows pneumonia and congestive heart failure with pulmonary edema. He received 40mg lasix yesterday. He is on daily PO lasix. His sodium was 126 yesterday. This morning it is 125. Nephrology has been consulted. Repeat echo was ordered yesterday and results are still pending. He remains on zosyn and levaquin. PT and OT have been consulted. Blood cultures are negative at the 24 hour gabriela. He is afebrile. Blood pressure running in the 90s to low 100s. Patient is maintaining oxygen saturation between 91-93% on 3L NC. 05/26/2017 Notes per covering provider 05/27/2017 Notes per covering provider 05/28/2017 Patient seen and examined on rounds with Dr. Velasquez. Patient is awake and alert. Patients potassium this morning is low at 3.0. He is on IV lasix 40mg Q12. Cardiology is following patient. Patient is scheduled to get a life vest today. His sodium is 127 today. Nephrology is consulted. patient remains on fluid restriction of 1200cc per day. Patient also was started on Ferrlecit 125mg IV daily for 3 days per nephrology. Spoke with Manpreet from social work who stated that [facility] is unable to take the patient with a peripheral IV in place. They are also still waiting for insurance authorization for ECF. Possible discharge tomorrow. Objective - Vital Signs Vital signs: Vital Signs Temp 98.9 F 05/28/17 11:17 Pulse 61 05/28/17 11:17 Resp 16 05/28/17 11:17 BP 90/58 05/28/17 11:17 Pulse Ox 98 05/28/17 11:17 Intake & Output 05/27/17 05/28/17 05/28/17 18:59 06:59 18:59 Intake Total 720 220 Output Total 2 500 650 Balance 718 -500 -430 Weight 73 kg Intake: IV 0 Piperacillin-Tazobactam 3 0 .375 gm In Dextrose/Water 1 50ml.bag @ 12.5 mls/hr IVPB Q8HR [facility] Rx#: [id number] Oral 720 220 Output: Urine 2 500 650 Other: Voiding Method Toilet Toilet Urinal Urinal # Voids 1 2 - Exam GENERAL: Sleepy this morning. Appears in no acute distress. Pleasant. RESPIRATORY: Lungs diminished at the bases bilaterally. No use of accessory muscles. Patient maintaining oxygen saturation greater than 92%. CARDIOVASCULAR: S1 and S2 noted. Systolic murmur. No JVD noted. EXTREMITIES: No edema noted. Palpable pedal pulses +2. ABDOMEN: No distention noted. Abdomen soft and round. Normal active bowel sounds auscultated 4 quadrants. No pain or tenderness noted upon palpation. - Labs CBC & Chem 7: 05/28/17 05:41 05/28/17 08:36 Labs: Abnormal Lab Results - Last 24 Hours (Table) 05/26/17 05/27/17 05/27/17 Range/Units 05:38 16:35 21:39 RBC (4.30-5.90) m/uL Hgb (13.0-17.5) gm/dL Hct (39.0-53.0) % Sodium (137-145) mmol/L Potassium (3.5-5.1) mmol/L Chloride (98-107) mmol/L Glucose (74-99) mg/dL POC Glucose (mg/dL) 146 H 212 H (75-99) mg/dL Iron 32 L (65-175) ug/dL Iron Saturation 12.60 L (15.00-50.00) 05/28/17 05/28/17 05/28/17 Range/Units 05:41 05:53 08:36 RBC 3.31 L (4.30-5.90) m/uL Hgb 10.0 L (13.0-17.5) gm/dL Hct 30.2 L (39.0-53.0) % Sodium 127 L (137-145) mmol/L Potassium 3.0 L* (3.5-5.1) mmol/L Chloride 88 L (98-107) mmol/L Glucose 200 H (74-99) mg/dL POC Glucose (mg/dL) 107 H (75-99) mg/dL Iron (65-175) ug/dL Iron Saturation (15.00-50.00) 05/28/17 Range/Units 11:50 RBC (4.30-5.90) m/uL Hgb (13.0-17.5) gm/dL Hct (39.0-53.0) % Sodium (137-145) mmol/L Potassium (3.5-5.1) mmol/L Chloride (98-107) mmol/L Glucose (74-99) mg/dL POC Glucose (mg/dL) 210 H (75-99) mg/dL Iron (65-175) ug/dL Iron Saturation (15.00-50.00) Microbiology - Last 24 Hours (Table) 05/24/17 03:05 Blood Culture - Preliminary Blood No Growth after 96 hours Assessment and Plan Plan: ASSESSMENT: -Chest pain, present on admission, s/p cardiac catherization with stent to the LAD -Moderate to severe aortic stenosis -Right lower lobe pneumonia, present on admission, sputum culture pending collection -Recent history of cardiac catherization with a stent to the LAD 05/08/2017 -Acute hypoxic respiratory failure, requiring supplemental oxygen -Acute on chronic systolic congestive heart failure, recent echo shows EF 25-30% -Chronic alcohol use, patient drinks minimum of three beers a day -Hyponatremia secondary to SIADH, present on admission, slowly improving -Essential hypertension -Diabetes mellitus, type II -Osteoarthritis -Hypokalemia, secondary to diuresis PLAN: -Cardiology on consult. Appreciate recommendations and input -Lasix to be converted to PO today per cardiology -Nephrology on consult for hyponatremia. Appreciate recommendations and input. -Continue empiric antibiotics: levaquin and zosyn -Monitor labs -Replace potassium: 60meq PO -GI prophylaxis: Protonix 40mg daily -DVT prophylaxis: Heparin 5000 units subcu every 8 hours -PT/OT -Monitor vital signs and address as appropriate -Patient waiting to receive life vest -Discharge planning: patient would like to return to [facility] -Spoke with Manpreet from social work. Insurance authorization is still pending. Additionally, [facility] will not take the patient with a peripheral IV in place for iron infusion. If patient receives insurance authorization tomorrow, patient can receive another dose before transfer and then will remove PIV. The above impression and plan of care have been discussed and directed by signing physician. Aixa Alarcon, nurse practitioner, acting as scribe for signing physician.
--- NOTE | 2017-05-28 15:04 | P.PN ---
Subjective Progress Note Date: 05/28/17 Principal diagnosis: Chest pain This is a 76-year-old gentleman who underwent angioplasty with stenting of the LAD, he also has moderate to severe aortic stenosis. Patient has known ischemic cardiomyopathy, hypertension, hyperlipidemia. He was in some mild failure and is currently on IV Lasix. Chest x-ray was reviewed which showed improvement from prior x-ray. Echocardiogram with Doppler study showed an ejection fraction of 20-25%. From cardiology's perspective the patient may be transferred to ECF once cleared by the primary. We will request a LifeVest be delivered for him today. The details of the LifeVest in reasoning for was explained to the patient and the family in detail. Creatinine today 0.8. Objective - Vital Signs Vital signs: Vital Signs Temp 98.9 F 05/28/17 11:17 Pulse 61 05/28/17 11:17 Resp 16 05/28/17 11:17 BP 90/58 05/28/17 11:17 Pulse Ox 98 05/28/17 11:17 Intake & Output 05/27/17 05/28/17 05/28/17 18:59 06:59 18:59 Intake Total 720 220 Output Total 2 500 650 Balance 718 -500 -430 Weight 73 kg Intake: IV 0 Piperacillin-Tazobactam 3 0 .375 gm In Dextrose/Water 1 50ml.bag @ 12.5 mls/hr IVPB Q8HR [facility] Rx#: [id number] Oral 720 220 Output: Urine 2 500 650 Other: Voiding Method Toilet Toilet Urinal Urinal # Voids 1 2 - Exam PHYSICAL EXAMINATION: HEENT: Head is atraumatic, normocephalic. Pupils equal, round. Neck is supple. There is no elevated jugular venous pressure. HEART EXAMINATION: S1 and S2 1 systolic ejection murmur is heard. CHEST EXAMINATION: Reveal fine rales to bilateral bases. ABDOMEN: Soft, nontender. Bowel sounds are heard. No organomegaly noted. EXTREMITIES:[ 2+ peripheral pulses with no evidence of peripheral edema and no calf tenderness noted]. NEUROLOGIC [patient is awake, alert and oriented -3.] . - Labs CBC & Chem 7: 05/28/17 05:41 05/28/17 08:36 Labs: Abnormal Lab Results - Last 24 Hours (Table) 05/26/17 05/27/17 05/27/17 Range/Units 05:38 16:35 21:39 RBC (4.30-5.90) m/uL Hgb (13.0-17.5) gm/dL Hct (39.0-53.0) % Sodium (137-145) mmol/L Potassium (3.5-5.1) mmol/L Chloride (98-107) mmol/L Glucose (74-99) mg/dL POC Glucose (mg/dL) 146 H 212 H (75-99) mg/dL Iron 32 L (65-175) ug/dL Iron Saturation 12.60 L (15.00-50.00) 05/28/17 05/28/17 05/28/17 Range/Units 05:41 05:53 08:36 RBC 3.31 L (4.30-5.90) m/uL Hgb 10.0 L (13.0-17.5) gm/dL Hct 30.2 L (39.0-53.0) % Sodium 127 L (137-145) mmol/L Potassium 3.0 L* (3.5-5.1) mmol/L Chloride 88 L (98-107) mmol/L Glucose 200 H (74-99) mg/dL POC Glucose (mg/dL) 107 H (75-99) mg/dL Iron (65-175) ug/dL Iron Saturation (15.00-50.00) 05/28/17 Range/Units 11:50 RBC (4.30-5.90) m/uL Hgb (13.0-17.5) gm/dL Hct (39.0-53.0) % Sodium (137-145) mmol/L Potassium (3.5-5.1) mmol/L Chloride (98-107) mmol/L Glucose (74-99) mg/dL POC Glucose (mg/dL) 210 H (75-99) mg/dL Iron (65-175) ug/dL Iron Saturation (15.00-50.00) Microbiology - Last 24 Hours (Table) 05/24/17 03:05 Blood Culture - Preliminary Blood No Growth after 96 hours Assessment and Plan Plan: Assessment and plan #1 symptoms of chest heaviness and burning with associated shortness of breath, suggestive of acute coronary syndrome. Status post LAD stent on the . #2 EtOH use #3 systolic congestive heart failure acute on chronic #4 diabetes #5 hypertension Plan We'll discontinue the patient's IV Lasix and start oral diuretics today. We will also request a LifeVest for the patient. For prevention of sudden cardiac . Once the patient is discharged from the hospital we will make him a follow-up appointment in the office with Dr. Chan post discharge. DNP note has been reviewed, I agree with a documented findings and plan of care. Patient was seen and examined.
[2017-05-28] MEDS: HEPARIN SODIUM,PORCINE 5,000 UNIT/ML 1 ML VIAL SQ SCH ×2 (16:38→23:32)
[2017-05-28 16:44] LABS: Glucose,Whole Blood 135 mg/dL (75-99)
[2017-05-28 20:44] LABS: Glucose,Whole Blood 257 mg/dL (75-99)
[2017-05-28] MEDS: ATORVASTATIN 80 MG TAB PO SCH (21:03)
[2017-05-29 06:25] LABS: Glucose,Whole Blood 99 mg/dL (75-99)
[2017-05-29] MEDS: INSULIN LISPRO (humaLOG) 300 UNIT/3 ML VIAL SQ SCH ×2 (06:35→13:05)
[2017-05-29] MEDS: PANTOPRAZOLE 40 MG TABLET PO SCH (06:36)
[2017-05-29] MEDS: LEVOFLOXACIN 750 MG TAB PO SCH (06:36)
[2017-05-29] MEDS: oxyCODONE-APAP 10-325MG 1 EACH TAB PO PRN ×2 (06:36→14:42)
[2017-05-29 06:55] LABS: Anion Gap 7 mmol/L; Blood Urea Nitrogen 11 mg/dL (9-20); Calcium 8.9 mg/dL (8.4-10.2); Carbon Dioxide 31 mmol/L (22-30); Chloride 91 mmol/L (98-107); Glucose 89 mg/dL (74-99); Magnesium 1.6 mg/dL (1.6-2.3); Non-African American GFR(MDRD) >60 (>60 ml/min/1.73 sqM); Potassium 3.5 mmol/L (3.5-5.1); Sodium 129 mmol/L (137-145)
[2017-05-29 07:08] LABS: Aty Lym Flag Slight; CH 32.6; CHCM 34.6; HCT 30.1 % (39.0-53.0); HDW 2.74; HGB 9.7 gm/dL (13.0-17.5); MCH 30.6 pg (25.0-35.0); MCHC 32.3 g/dL (31.0-37.0); MCV 94.8 fL (80.0-100.0); Mean Platelet Volume 9.5; RBC 3.17 m/uL (4.30-5.90); WBC (Perox) 5.25
[2017-05-29 07:55] LABS: Add Differential Manual Differential
[2017-05-29 07:57] LABS: Nucleated Red Blood Cells 0 /100 WBC (0-0); Total Cells Counted 100
[2017-05-29 07:58] LABS: Manual Review Performed
[2017-05-29] MEDS: ALBUTEROL NEBULIZED 2.5 MG/3 ML INHALATION SCH ×2 (08:18→13:36)
[2017-05-29] MEDS ORDERED: FUROSEMIDE 40 MG TAB PO SCH (09:00)
[2017-05-29 09:27] VITALS: RESP 16; TEMP 97.4
[2017-05-29] MEDS ORDERED: POTASSIUM CHLORIDE ER 20 MEQ TAB.ER PO STA (09:30)
--- NOTE | 2017-05-29 09:58 | P.PN ---
Subjective Patient is seen in follow-up for hyponatremia. Sodium level improved with diuresis and is up to 129 this morning. Patient's currently resting in bed. He denies any chest pain or shortness of breath. Denies cough. No vomiting or diarrhea. He does of systolic CHF with ejection fraction of 25%. Currently being treated for pneumonia. Vital signs are stable. General: The patient appeared well nourished and normally developed. HEENT: Head exam is unremarkable. Neck is without jugular venous distension. LUNGS: Lungs are clear to auscultation and percussion. Breath sounds decreased. HEART: Rate and Rhythm are regular. First and second heart sounds normal. No murmurs, rubs or gallops. ABDOMEN: Abdominal exam reveals normal bowel sounds. Non-tender and non- distended. No evidence of peritonitis. EXTREMITITES: No clubbing, cyanosis, or edema. Objective - Vital Signs Vital signs: Vital Signs Temp 97.4 F L 05/29/17 08:00 Pulse 70 05/29/17 08:00 Resp 16 05/29/17 08:00 BP 83/51 05/29/17 08:00 Pulse Ox 97 05/29/17 08:00 Intake & Output 05/28/17 05/29/17 05/29/17 18:59 06:59 18:59 Intake Total 1640 Output Total 950 1700 Balance 690 -1700 Weight 64.4 kg Intake: IV 100 Piperacillin-Tazobactam 3 100 .375 gm In Dextrose/Water 1 50ml.bag @ 12.5 mls/hr IVPB Q8HR [facility] Rx#: [id number] Intake, IV Titration 300 Amount Sodium Chloride 0.9% 1, 200 000 ml As IV .[facility] Rx#:[id number] Sodium Ferric Gluconat- 100 Sucrose 125 mg In Sodium Chloride 0.9% 100 ml @ 100 mls/hr IVPB DAILY [facility] Rx#:[id number] Oral 1240 Output: Urine 950 1700 Other: Voiding Method Toilet Urinal Urinal # Voids 2 - Labs CBC & Chem 7: 05/29/17 06:17 05/29/17 06:17 Labs: Abnormal Lab Results - Last 24 Hours (Table) 05/28/17 05/28/17 05/28/17 Range/Units 11:50 16:41 20:43 RBC (4.30-5.90) m/uL Hgb (13.0-17.5) gm/dL Hct (39.0-53.0) % Lymphocytes # (Manual) (1.0-4.8) k/uL Sodium (137-145) mmol/L Chloride (98-107) mmol/L Carbon Dioxide (22-30) mmol/L POC Glucose (mg/dL) 210 H 135 H 257 H (75-99) mg/dL 05/29/17 05/29/17 Range/Units 06:17 06:17 RBC 3.17 L (4.30-5.90) m/uL Hgb 9.7 L (13.0-17.5) gm/dL Hct 30.1 L (39.0-53.0) % Lymphocytes # (Manual) 0.75 L (1.0-4.8) k/uL Sodium 129 L (137-145) mmol/L Chloride 91 L (98-107) mmol/L Carbon Dioxide 31 H (22-30) mmol/L POC Glucose (mg/dL) (75-99) mg/dL Microbiology - Last 24 Hours (Table) 05/24/17 03:05 Blood Culture - Preliminary Blood No Growth after 120 hours Assessment and Plan Plan: Assessment: #1. Hyponatremia. Appears euvolemic in nature at this time. Urine osmolality is on the lower side at 288 with urine sodium of 54. 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 #2. Pneumonia maintained on IV antibiotics. #3. Coronary artery disease status post proximal LAD stent May 25. #4. Systolic CHF with ejection fraction of 20-25%. #5. Anemia with iron deficiency. #6. Hypokalemia secondary to diuresis. #7. Hypomagnesemia secondary to diuresis. Plan: Continue Lasix 40 mg po daily for now. 1200 mL fluid restriction. Encouraged oral intake. Ferrlecit 125 mg IV daily for 3 days. Second dose today. Replace potassium. 40 mEq today. Replace magnesium. 2 g IV today.
--- NOTE | 2017-05-29 10:01 | P.DS ---
Providers Date of admission: 05/24/17 02:33 Expected date of discharge: 05/29/17 Attending physician: Be Velasquez Consults: 05/24/17 03:16 Consult Physician Routine Consulting Provider: Omer Dunn Consult Reason/Comments: New onset CHF, chest pain. Do you want consulting provider notified?: Yes 05/24/17 13:35 Consult Physician Routine Consulting Provider: Umberto Hussein Consult Reason/Comments: Hyponatremia Do you want consulting provider notified?: Yes 05/25/17 13:46 Consult Physician Routine Consulting Provider: [facility] Consult Reason/Comments: Post Interventional patient Do you want consulting provider notified?: Already Contacted Primary care physician: Be Velasquez [place] [facility] Course: This is a 76 year old male who presented to the emergency room via EMS with chest pain. The patient was at [facility] for rehab. He was giving sublinqual nitro without relief and he was brought to the hospital for evaluation. The patient had a recent admission to the hospital from 05/08/2017 to 05/11/2017 for chest pain. He underwent a cardiac catherization and a stent was placed in the LAD. The patient has a history of CVA/TIA, diabetes mellitus, hypertension, osteoarthritis, frequent falls, and alcohol abuse. During his prior hospitalization a CT of the chest was performed which not show evidence of pulmonary embolism. It did show fairly moderate size bilteral pleural effusions with mild central opacity or alveolar edema suggestive of fluid overload. CT of the cervical spine was negative for fracture. His chest xray revealed right greater than left bibasilar infiltrates and/or atelectasis and problable small bilateral pleural effusions. An echo completed showed an EF of 25-30%. A chest x-ray was completed in the ER on 05/24/2017 which showed evidence of congestive heart failure and right lower lobe pneumonia that is worse when compared to his old films. Troponins were 0.015 and 0.013. CK-MB was 2.5 and 3.4. He was admitted to the hospital under the care of Dr. Velasquez. Consults were placed to cardiology. The patients sodium was low on admission. His sodium was 124. Last admission his sodium was 137. Nephrology was consulted who stated hyponatremia was related to poor solute intake as well as component of SIADH from his pneumonia Patient underwent cardiac catheterization on 05/25/2017 and a stent was placed to the proximal LAD. His chest xray during hospitalization was suggestive of congestive heart failure. He was placed on IV Lasix per cardiology. He has since been transitioned to by mouth Lasix. During his hospitalization, his potassium was low at 3.0 due to IV Lasix. He received supplementation and his potassium has improved to 3.5. Blood cultures are negative at the 120 hour gabriela. An echocardiogram was completed on 05/24/2017 which showed mild mitral regurgitation, mild tricuspid regurgitation, mild pulmonary hypertension, EF of 20-25%, anterseptal hypokinesis, lateral hypokinesis, inferior hypokinesis, and apex hypokinesis. Cardiology recommended that the patient have a life vest and it is to be delivered to the patient The patient is cleared for discharge per Dr Velasquez. he is to follow up outpatient with Dr Velasquez and cardiology as well. DISCHARGE DIAGNOSIS: -Chest pain, present on admission, s/p cardiac catherization with stent to the LAD -Moderate to severe aortic stenosis -Right lower lobe pneumonia, present on admission, sputum culture pending collection -Recent history of cardiac catherization with a stent to the LAD 05/08/2017 -Acute hypoxic respiratory failure, requiring supplemental oxygen -Acute on chronic systolic congestive heart failure, recent echo shows EF 25-30% -Chronic alcohol use, patient drinks minimum of three beers a day -Hyponatremia secondary to SIADH, present on admission, slowly improving -Essential hypertension -Diabetes mellitus, type II -Osteoarthritis -Hypokalemia, secondary to diuresis, improved The above impression and plan of care have been discussed and directed by signing physician. Aixa Alarcon, nurse practitioner, acting as scribe for signing physician. Patient Condition at Discharge: Fair Plan - Discharge Summary Discharge Rx Participant: No New Discharge Prescriptions: New Albuterol Nebulized [Ventolin Nebulized] 2.5 mg INHALATION RT-QID nebu Levofloxacin [Levaquin] 750 mg PO DAILY #7 tab ALPRAZolam [Xanax] 0.25 mg PO Q6HR PRN #30 tab PRN Reason: Mild Anxiety Continue amLODIPine [Norvasc] 5 mg PO DAILY metFORMIN HCL [Glucophage] 500 mg PO BID Aspirin 81 mg PO DAILY Atorvastatin [Lipitor] 80 mg PO HS tab Clopidogrel [Plavix] 75 mg PO DAILY tab Fluticasone Nasal Kamiah [Flonase Nasal Kamiah] 2 spray EA NOSTRIL DAILY PRN spray PRN Reason: Allergy Symptoms Furosemide [Lasix] 20 mg PO BID tab Lisinopril [Zestril] 2.5 mg PO BID tab Mag Hydrox/Al Hydrox/Simeth [Maalox] 30 ml PO Q4HR PRN dose PRN Reason: Heartburn Metoprolol Tartrate [Lopressor] 25 mg PO BID tab Nitroglycerin Sl Tabs [Nitrostat] 0.4 mg SUBLINGUAL Q5M PRN tab PRN Reason: Chest Pain Pantoprazole [Protonix] 40 mg PO AC-BRKFST tab Spironolactone [Aldactone] 25 mg PO DAILY tab Thiamine [Vitamin B-1] 100 mg PO BID@1200,1700 tab Pregabalin [Lyrica] 300 mg PO BID #60 INSULIN LISPRO (humaLOG) [humaLOG (formulary)] See Protocol SQ ACHS Multivitamins, Thera [Multivitamin (formulary)] 1 tab PO DAILY oxyCODONE-APAP 10-325MG [Percocet 10-325 mg] 1 tab PO Q8H PRN #30 tab PRN Reason: Pain Control Discharge Medication List amLODIPine [Norvasc] 5 mg PO DAILY 11/11/16 [History] metFORMIN HCL [Glucophage] 500 mg PO BID 12/08/16 [History] Aspirin 81 mg PO DAILY 05/11/17 [Rx] Atorvastatin [Lipitor] 80 mg PO HS tab 05/11/17 [Rx] Clopidogrel [Plavix] 75 mg PO DAILY tab 05/11/17 [Rx] Fluticasone Nasal Kamiah [Flonase Nasal Kamiah] 2 spray EA NOSTRIL DAILY PRN spray 05/11/17 [Rx] Furosemide [Lasix] 20 mg PO BID tab 05/11/17 [Rx] Lisinopril [Zestril] 2.5 mg PO BID tab 05/11/17 [Rx] Mag Hydrox/Al Hydrox/Simeth [Maalox] 30 ml PO Q4HR PRN dose 05/11/17 [Rx] Metoprolol Tartrate [Lopressor] 25 mg PO BID tab 05/11/17 [Rx] Nitroglycerin Sl Tabs [Nitrostat] 0.4 mg SUBLINGUAL Q5M PRN tab 05/11/17 [Rx] Pantoprazole [Protonix] 40 mg PO AC-BRKFST tab 05/11/17 [Rx] Pregabalin [Lyrica] 300 mg PO BID #60 05/11/17 [Rx] Spironolactone [Aldactone] 25 mg PO DAILY tab 05/11/17 [Rx] Thiamine [Vitamin B-1] 100 mg PO BID@1200,1700 tab 05/11/17 [Rx] INSULIN LISPRO (humaLOG) [humaLOG (formulary)] See Protocol SQ ACHS 05/24/17 [ History] Multivitamins, Thera [Multivitamin (formulary)] 1 tab PO DAILY 05/24/17 [History ] ALPRAZolam [Xanax] 0.25 mg PO Q6HR PRN #30 tab 05/29/17 [Rx] Albuterol Nebulized [Ventolin Nebulized] 2.5 mg INHALATION RT-QID nebu [Rx] Levofloxacin [Levaquin] 750 mg PO DAILY #7 tab 05/29/17 [Rx] oxyCODONE-APAP 10-325MG [Percocet 10-325 mg] 1 tab PO Q8H PRN #30 tab 05/29/17 [ Rx] Follow up Appointment(s)/Referral(s): Be Velasquez DO [Primary Care Provider] - 1 Week (after discharge from [facility]) Tushar Chan MD [STAFF PHYSICIAN] - 1 Week Ambulatory/Diagnostic Orders: Basic Metabolic Panel [LAB.AMB] Time Frame: 3 Days, Location: Determined By Patient Activity/Diet/Wound Care/Special Instructions: Patient to wear life vest Oxygen via nasal cannula to maintain oxygen saturation greater than 92% activity as tolerated consistent carbohydrate diet 1200cc fluid restriction until sodium improves to normal range Discharge Disposition: TRANSFER TO SNF/ECF
[2017-05-29] MEDS: LISINOPRIL 2.5 MG TAB PO SCH (10:33)
[2017-05-29] MEDS: METOPROLOL TARTRATE 25 MG TAB PO SCH (10:34)
[2017-05-29] MEDS: SPIRONOLACTONE 25 MG TAB PO SCH (10:34)
[2017-05-29] MEDS: HEPARIN SODIUM,PORCINE 5,000 UNIT/ML 1 ML VIAL SQ SCH (10:38)
[2017-05-29] MEDS: SODIUM FERRIC GLUCONAT-SUCROSE 125 MG in SODIUM CHLORIDE 0.9% 100 ML IVPB SCH (10:39)
[2017-05-29] MEDS: CLOPIDOGREL 75 MG TAB PO SCH (10:39)
[2017-05-29] MEDS: PREGABALIN 100 MG CAP PO SCH (10:39)
[2017-05-29] MEDS: ASPIRIN 81 MG PO SCH (10:39)
[2017-05-29] MEDS: MAGNESIUM SULFATE-D5W PMX 1 GM in DEXTROSE/WATER 1 100ML.BAG IVPB SCH ×2 (10:40→12:12)
[2017-05-29 12:02] LABS: Glucose,Whole Blood 138 mg/dL (75-99)
[2017-05-29] MEDS: PIPERACILLIN-TAZOBACTAM 3.375 GM in DEXTROSE/WATER 1 50ML.BAG IVPB SCH (12:08)
[2017-05-29] MEDS: MULTIVITAMINS, THERA 1 EACH TAB PO SCH (13:05)
[2017-05-29] MEDS: THIAMINE 100 MG TAB PO SCH (13:06)
[2017-05-29 13:35] VITALS: BP 122/76; PULSE 92
== END 2017-05-29 16:07 | DRG 246 ==
LOC: EC 00:37 → 6SEL 02:33
PROVIDERS: ADMIT Family Medicine; ATTEND Family Medicine
PROC: 027034Z Dilation of Coronary Artery, One Artery with Drug-eluting Intraluminal Device, Percutaneous Approach (ICD-10-PCS; principal; 2017-05-25 12:00)
PROC: B2111ZZ Fluoroscopy of Multiple Coronary Arteries using Low Osmolar Contrast (ICD-10-PCS; 2017-05-25 12:00)
DX: I25.110 Atherosclerotic heart disease of native coronary artery with unstable angina pectoris (principal); I50.23 Acute on chronic systolic (congestive) heart failure; I21.4 Non-ST elevation (NSTEMI) myocardial infarction; J96.01 Acute respiratory failure with hypoxia; J18.9 Pneumonia, unspecified organism; E11.40 Type 2 diabetes mellitus with diabetic neuropathy, unspecified; I11.0 Hypertensive heart disease with heart failure; I27.20 Pulmonary hypertension, unspecified; D50.9 Iron deficiency anemia, unspecified; F10.10 Alcohol abuse, uncomplicated; E22.2 Syndrome of inappropriate secretion of antidiuretic hormone; I35.0 Nonrheumatic aortic (valve) stenosis; I08.1 Rheumatic disorders of both mitral and tricuspid valves; E87.6 Hypokalemia; E78.5 Hyperlipidemia, unspecified; I25.5 Ischemic cardiomyopathy; G89.29 Other chronic pain; R29.6 Repeated falls; M54.9 Dorsalgia, unspecified; M19.91 Primary osteoarthritis, unspecified site; T50.1X5A Adverse effect of loop [high-ceiling] diuretics, initial encounter; Z79.82 Long term (current) use of aspirin; Z79.02 Long term (current) use of antithrombotics/antiplatelets; Z79.51 Long term (current) use of inhaled steroids; Z79.899 Other long term (current) drug therapy; Z79.4 Long term (current) use of insulin; Z95.5 Presence of coronary angioplasty implant and graft; Z86.73 Personal history of transient ischemic attack (TIA), and cerebral infarction without residual deficits; Z86.59 Personal history of other mental and behavioral disorders; Z98.42 Cataract extraction status, left eye; Z98.41 Cataract extraction status, right eye; Z96.1 Presence of intraocular lens
CPT/HCPCS: 36415; 71010; 71020; 80048; 80053; 82550; 82553; 83036; 83540; 83550; 83605; 83735; 83880; 83930; 83935; 84295; 84300; 84484; 85025; 85045; 85610; 85730; 87040; 93005; 93306; 93454; 94640; 94760; 96365; 96366; 96376; 99285

== ENCOUNTER 2017-08-16 13:16 | Inpatient (IN) | payer MEDICARE ==
[2017-08-16] MEDS ORDERED: SODIUM CHLORIDE 0.9% 1,000 ML IV STA (15:12)
[2017-08-16] MEDS ORDERED: VANCOMYCIN IV PER PHARMACY 1 EACH MISC MISCELLANE PRN ×2 (15:14→18:31)
[2017-08-16] MEDS ORDERED: VANCOMYCIN 1,500 MG in SODIUM CHLORIDE 0.9% 250 ML IVPB STA (15:15)
[2017-08-16] MEDS ORDERED: AMPICILLIN-SULBACTAM 3 GM in SODIUM CHLORIDE 0.9% 100 ML IVPB STA (15:15)
[2017-08-16 15:47] LABS: Basophils % (A) 0 %; Eosinophils % (A) 0 %; HCT 21.8 % (39.0-53.0); Hypochromasia Moderate; Lymphocytes # (A) 0.6 k/uL (1.0-4.8); Lymphocytes % (A) 3 %; MCHC 30.9 g/dL (31.0-37.0); Mean Platelet Volume 8.1; Monocytes # (A) 0.9 k/uL (0-1.0); Monocytes % (A) 5 %; Neutrophils # (A) 15.9 k/uL (1.3-7.7); Neutrophils % (A) 90 %; Platelet Count 329 k/uL (150-450); RBC 2.69 m/uL (4.30-5.90); RDW 14.8 % (11.5-15.5); WBC 17.8 k/uL (3.8-10.6)
--- NOTE | 2017-08-16 15:51 | ED ---
Extremity Problem HPI - General Source: patient Mode of arrival: ambulatory Limitations: no limitations <Neil Hartley - Last Filed: 08/16/17 15:45> <Scott Yeager - Last Filed: 08/16/17 18:24> - General Chief complaint: Extremity Problem,Nontraumatic Stated complaint: infection on foot Time Seen by Provider: 08/16/17 15:10 - History of Present Illness Initial comments: This 76-year-old white male presents with a complaint of a left heel wound. He apparently has had this for approximately 7 months. He apparently had previous myocardial infarction was hospitalized and then was at [facility] for quite some time. He has been home for approximately one month. He was treated through the wound center well at [facility] and had been improving. Over the past 2 weeks , has worsened. The family notes a significant malodorous scent coming from the wound. He also has had a fever of up to 101 2 days ago. He has had a decrease in appetite as well. He has chronic left leg swelling for the past 2 years. The family relates that he also fell approximately 3 weeks ago and injured his left ribs and has had some pain to his ribs ever since. He does have a history of diabetes and lower extremity neuropathy. No other complaints or modifying factors. (Neil Hartley) - Related Data Home Medications Medication Instructions Recorded Confirmed metFORMIN HCL [Glucophage] 500 mg PO BID 12/08/16 08/16/17 Aspirin 81 mg PO W/SUPPER 07/09/17 08/16/17 Clopidogrel [Plavix] 75 mg PO QAM 07/09/17 08/16/17 Collagenase [Santyl] 1 applic TOPICAL DAILY 07/09/17 08/16/17 DULoxetine HCL [Cymbalta] 60 mg PO W/SUPPER 07/09/17 08/16/17 Furosemide [Lasix] 20 mg PO DAILY 07/09/17 08/16/17 Ipratropium-Albuterol Nebulize 3 ml INHALATION RT-QID PRN 07/09/17 08/16/17 [Duoneb 0.5 mg-3 mg/3 ml Soln] Lisinopril [Prinivil] 5 mg PO BID 07/09/17 08/16/17 Metoprolol Tartrate [Lopressor] 25 mg PO BID 07/09/17 08/16/17 Multivitamins, Thera [Multivitamin 1 tab PO W/SUPPER 07/09/17 08/16/17 (formulary)] Nitroglycerin Sl Tabs [Nitrostat] 0.4 mg SUBLINGUAL Q5M PRN 07/09/17 08/16/17 Pantoprazole [Protonix] 40 mg PO QAM 07/09/17 08/16/17 Thiamine [Vitamin B-1] 100 mg PO BID 07/09/17 08/16/17 Previous Rx's Medication Instructions Recorded Atorvastatin [Lipitor] 80 mg PO HS tab 05/11/17 Fluticasone Nasal [place] [Flonase 2 spray EA NOSTRIL DAILY PRN spray 05/11/17 Nasal [place]] oxyCODONE-APAP 10-325MG [Percocet 1 tab PO Q8H PRN #30 tab 05/29/17 10-325 mg] Allergies Allergy/AdvReac Type Severity Reaction Status Date / Time No Known Allergies Allergy Verified 08/16/17 15:32 Review of Systems ROS Other: All systems not noted in ROS Statement are negative. <Neil Hartley - Last Filed: 08/16/17 15:45> ROS Other: All systems not noted in ROS Statement are negative. <Scott Yeager - Last Filed: 08/16/17 18:24> ROS Statement: Those systems with pertinent positive or pertinent negative responses have been documented in the HPI. Past Medical History Past Medical History: Diabetes Mellitus Additional Past Medical History / Comment(s): Diabetic neuropathy chronic back pain Last Myocardial Infarction Date:: 05/08/2017 History of Any Multi-Drug Resistant Organisms: None Reported Past Surgical History: Back Surgery, Heart Catheterization With Stent Additional Past Surgical History / Comment(s): bilateral cataract removal with implants, right foot surgery, stent to LAD 05/08 Past Anesthesia/Blood Transfusion Reactions: No Reported Reaction Date of Last Stent Placement:: 05/08/2017 Past Psychological History: Depression Smoking Status: Never smoker Past Alcohol Use History: Daily Past Drug Use History: None Reported - Past Family History Mother Family Medical History: No Reported History Father Family Medical History: Cancer Sister(s) Family Medical History: Cancer <Neil Hartley - Last Filed: 08/16/17 15:45> General Exam Limitations: no limitations <Neil Hartley - Last Filed: 08/16/17 15:45> <Scott Yeager - Last Filed: 08/16/17 18:24> - General Exam Comments Initial Comments: GENERAL: The patient is well nourished and well hydrated. VITAL SIGNS: Heart rate, blood pressure, respiratory rate reviewed as recorded in nurse's notes. EYES: Pupils are round and reactive. Extraocular movements are intact. No conjunctival / lid redness or swelling. ENT: No external evidence of injury, swelling, or ecchymosis. Airway is patent. Throat is clear. NECK: Nontender. No swelling or evidence of injury. No subcutaneous emphysema. Trachea is midline. No thyroid mass. HEART: Regular rate and rhythm. Good peripheral pulses. Cardiac murmur noted. LUNGS/CHEST: Breath sounds clear and equal bilaterally. No rales, rhonchi, or wheezes. No ecchymosis, subcutaneous emphysema. There is some mild tenderness upon palpation of the left lower chest wall. ABDOMEN: Abdomen soft without tenderness. No palpable masses or organomegaly. No peritoneal signs. No abdominal wall swelling or ecchymosis. EXTREMITIES: There is an significant left heel wound. There is a malodorous scent coming from this wound. It appears to go fairly deep. Normal muscle tone and function. No thoracolumbar tenderness. NEUROLOGIC: Sensation is grossly intact. Cranial nerve exam reveals face is symmetrical, tongue is midline, speech is clear. SKIN: No abrasions or ecchymosis is noted. No induration or masses noted. Good capillary refill noted. PSYCHIATRIC: Alert and oriented. Appropriate behavior and judgment. Poor historian. (Neil Hartley) Vital Signs 08/16/17 08/16/17 14:04 16:06 Temperature 97.5 F L Pulse Rate 74 69 Respiratory 18 18 Rate Blood Pressure 116/58 108/56 O2 Sat by Pulse 97 97 Oximetry Medical Decision Making <Neil Hartley - Last Filed: 08/16/17 15:45> - Lab Data Result diagrams: 08/16/17 15:35 08/16/17 15:35 <Scott Yeager - Last Filed: 08/16/17 18:24> - Medical Decision Making The patient was seen and examined. All diagnostics were reviewed to this point. He had an EKG done which shows a normal sinus rhythm with the usual PVC noted. There is no acute ST-T wave changes identified. The MS interval is 176 , QRS duration is 88, and the QTC intervals 485. An IV is started and he is started on Unasyn as well as vancomycin. The case was discussed with Dr. Garcia from the wound care center prior to patient arrival. He does state that he has a significant left heel wound with evidence of infection and that he would require admission to the hospital with IV antibiotics. He feels as though the patient will also require debridement in the operating room. He states that he thinks that the wound is down to the bone. X-rays are ordered of the left foot as well as the left ribs and chest. Laboratory is also pending. Further care will be passed off to oncoming physician, Dr. Yeager. ( Neil Hartley) Patient has been started on vancomycin and Unasyn for suspected osteomyelitis. Examination of the foot shows a large area of black necrotic tissue on the heel , foul smelling,plantar surface red and warm. Wound redressed. Decision making; this patient was endorsed to me for further disposition. Labs show white count of 17.8 hemoglobin only 6.7 hematocrit 21.7. This is a significant change in the last 6 weeks from a hemoglobin 9.55 and a hematocrit of 27. His INR is 1.2, potassium 3.7, BUN 15 creatinine 0.9 and GFR greater than 60. CRP elevated at 155. Glucose 189. xray of the left foot was reviewed by radiologist his impression is generalized osteopenia likely on the basis of osteoporosis. There is vascular calcification and some subcutaneous air along the lateral aspect of the foot. This likely relates to the patient's infective process. No definitive bony destructive lesion is seen. Impression ;no acute osseous lesion. Evidence of soft tissue air suggesting infection. Generalized osteopenia likely on the basis of osteoporosis. Dr. Omkar Schmidt; upon further review, there is a focal area of cortical loss involving calcaneus, best seen on the oblique view. The posterior inferior aspect of the calcaneus appears mottled. These findings are consistent with osteomyelitis. xray of the chest was done including rib series and reviewed by the radiologist his impression is ;COPD, no definite identification of a rib fracture that this time. dr Omkar Coppola discussed the radiographic findings and clinical findings and lab results with on-call orthopedic surgeon Dr. Castellon he states due to the chronicity of the wound and the lack septic findings, the subcu gas most likely related to the chronic infection. He recommends vascular surgery for consult for the evaluation. dr Rodriguez has been notified, case was discussed. Doctor Adolph was contacted and he recommends adding Zosyn 3.375 to the patient' s current list of medications. (Scott Yeager) - Lab Data Lab Results 08/16/17 08/16/17 08/16/17 Range/Units 15:35 15:35 15:35 WBC 17.8 H (3.8-10.6) k/uL RBC 2.69 L (4.30-5.90) m/uL Hgb 6.7 L* D (13.0-17.5) gm/dL Hct 21.8 L (39.0-53.0) % MCV 81.0 D (80.0-100.0) fL MCH 25.0 (25.0-35.0) pg MCHC 30.9 L (31.0-37.0) g/dL RDW 14.8 (11.5-15.5) % Plt Count 329 (150-450) k/uL Neutrophils % 90 % Lymphocytes % 3 % Monocytes % 5 % Eosinophils % 0 % Basophils % 0 % Neutrophils # 15.9 H (1.3-7.7) k/uL Lymphocytes # 0.6 L (1.0-4.8) k/uL Monocytes # 0.9 (0-1.0) k/uL Eosinophils # 0.0 (0-0.7) k/uL Basophils # 0.0 (0-0.2) k/uL Manual Slide Review Performed Polychromasia Present Hypochromasia Moderate Poikilocytosis (manual Present Ovalocytes Present ESR 114 H (0-15) mm/hr PT (9.0-12.0) sec INR (<1.2) APTT (22.0-30.0) sec Sodium 133 L (137-145) mmol/L Potassium 3.7 (3.5-5.1) mmol/L Chloride 95 L (98-107) mmol/L Carbon Dioxide 26 (22-30) mmol/L Anion Gap 12 mmol/L BUN 15 (9-20) mg/dL Creatinine 0.90 (0.66-1.25) mg/dL Est GFR (MDRD) Af Amer >60 (>60 ml/min/1.73 sqM) Est GFR (MDRD) Non-Af >60 (>60 ml/min/1.73 sqM) Glucose 189 H (74-99) mg/dL Plasma Lactic Acid Ramirez 1.7 (0.7-2.0) mmol/L Calcium 9.1 (8.4-10.2) mg/dL Total Bilirubin 0.8 (0.2-1.3) mg/dL AST 14 L (17-59) U/L ALT 21 (21-72) U/L Alkaline Phosphatase 141 H (38-126) U/L C-Reactive Protein 155.0 H (<10.0) mg/L Total Protein 6.0 L (6.3-8.2) g/dL Albumin 3.0 L (3.5-5.0) g/dL Blood Type Blood Type Recheck Antibody Screen Crossmatch Spec Expiration Date 08/16/17 08/16/17 Range/Units 15:35 15:35 WBC (3.8-10.6) k/uL RBC (4.30-5.90) m/uL Hgb (13.0-17.5) gm/dL Hct (39.0-53.0) % MCV (80.0-100.0) fL MCH (25.0-35.0) pg MCHC (31.0-37.0) g/dL RDW (11.5-15.5) % Plt Count (150-450) k/uL Neutrophils % % Lymphocytes % % Monocytes % % Eosinophils % % Basophils % % Neutrophils # (1.3-7.7) k/uL Lymphocytes # (1.0-4.8) k/uL Monocytes # (0-1.0) k/uL Eosinophils # (0-0.7) k/uL Basophils # (0-0.2) k/uL Manual Slide Review Polychromasia Hypochromasia Poikilocytosis (manual Ovalocytes ESR (0-15) mm/hr PT 11.2 (9.0-12.0) sec INR 1.2 H (<1.2) APTT 27.6 (22.0-30.0) sec Sodium (137-145) mmol/L Potassium (3.5-5.1) mmol/L Chloride (98-107) mmol/L Carbon Dioxide (22-30) mmol/L Anion Gap mmol/L BUN (9-20) mg/dL Creatinine (0.66-1.25) mg/dL Est GFR (MDRD) Af Amer (>60 ml/min/1.73 sqM) Est GFR (MDRD) Non-Af (>60 ml/min/1.73 sqM) Glucose (74-99) mg/dL Plasma Lactic Acid Ramirez (0.7-2.0) mmol/L Calcium (8.4-10.2) mg/dL Total Bilirubin (0.2-1.3) mg/dL AST (17-59) U/L ALT (21-72) U/L Alkaline Phosphatase (38-126) U/L C-Reactive Protein (<10.0) mg/L Total Protein (6.3-8.2) g/dL Albumin (3.5-5.0) g/dL Blood Type O Positive Blood Type Recheck No Antibody Screen NEGATIVE Crossmatch See Detail Spec Expiration Date 08/19/2017 - 2331 Disposition <Neil Hartley - Last Filed: 08/16/17 15:45> <Scott Yeager - Last Filed: 08/16/17 18:24> Clinical Impression: Non healing left heel wound, Left foot infection, Contusion of rib on left side , Neuropathy, Diabetic foot ulcer associated with type 2 diabetes mellitus, Osteomyelitis of left foot, Anemia Disposition: ADMITTED IP TO THIS [facility] Condition: Serious Referrals: Be Velasquez DO [Primary Care Provider] - 1-2 days
[2017-08-16 15:56] LABS: INR 1.2 (<1.2); Partial Thromboplastin Time 27.6 sec (22.0-30.0); Prothrombin Time 11.2 sec (9.0-12.0)
[2017-08-16 15:59] LABS: ALT 21 U/L (21-72); AST 14 U/L (17-59); Alkaline Phosphatase 141 U/L (38-126); Anion Gap 12 mmol/L; Blood Urea Nitrogen 15 mg/dL (9-20); Calcium 9.1 mg/dL (8.4-10.2); Carbon Dioxide 26 mmol/L (22-30); Chloride 95 mmol/L (98-107); Glucose 189 mg/dL (74-99); Potassium 3.7 mmol/L (3.5-5.1); Sodium 133 mmol/L (137-145); Total Bilirubin 0.8 mg/dL (0.2-1.3)
[2017-08-16 16:02] LABS: HGB 6.7 gm/dL (13.0-17.5)
[2017-08-16 16:34] LABS: Poikilocytosis (M) Present; Polychromasia Present
[2017-08-16 16:35] LABS: Ovalocytes Present
[2017-08-16 17:03] LABS: Erythrocyte Sedimentation Rate 114 mm/hr (0-15)
[2017-08-16] MEDS ORDERED: VANCOMYCIN 1,000 MG in SODIUM CHLORIDE 0.9% 250 ML IVPB STA (17:21)
--- NOTE | 2017-08-16 17:21 | XR ---
EXAMINATION TYPE: XR foot complete LT , 3 VIEWS DATE OF EXAM ORDERED: 08/16/2017 HISTORY: Infection. COMPARISON: Previous study dated 08/25/2013. FINDINGS: There is generalized osteopenia likely on the basis of osteoporosis. There is vascular gabriel cification and some subcutaneous air along the lateral aspect of the foot. This likely relates to the patient's infective process. No definite bony destructive lesion is seen. IMPRESSION: 1. NO ACUTE OSSEOUS LESION. 2. EVIDENCE OF SOFT TISSUE AIR SUGGESTING INFECTION. 3. GENERALIZED OSTEOPENIA, LIKELY ON THE BASIS OF OSTEOPOROSIS.
--- NOTE | 2017-08-16 17:23 | XR ---
EXAMINATION TYPE: XR ribs LT w pa chest x-ray , 6 VIEWS DATE OF EXAM ORDERED: 08/16/2017 HISTORY: Pain following trauma. COMPARISON: Previous study dated 07/09/2017. FINDINGS: The lungs are overinflated but clear. Pleural spaces are clear. The heart is upper limits of normal in size. There is no evidence of pneumothorax. No displaced rib fractures identified. Note is made of a previous interpedicular fusion in the lower lumbar spine. IMPRESSION: 1. COPD. 2. I DO NOT IDENTIFY A DISPLACED RIB FRACTURE AT THIS TIME.
[2017-08-16] MEDS ORDERED: HYDROmorphone 2 MG/ML 1 ML SYRINGE IVP PRN (18:24)
[2017-08-16] MEDS ORDERED: NALOXONE 0.4 MG/ML 1 ML VIAL IV PRN (18:24)
[2017-08-16] MEDS ORDERED: IPRATROPIUM-ALBUTEROL 3 ML NEB INHALATION PRN (18:30)
[2017-08-16] MEDS ORDERED: FLUTICASONE 50MCG/SPRAY NASAL 16GM EA NOSTRIL PRN (18:30)
[2017-08-16 21:57] LABS: Glucose,Whole Blood 217 mg/dL (75-99)
[2017-08-16] MEDS: SODIUM CHLORIDE 0.9% 1,000 ML IV SCH (22:52)
[2017-08-16] MEDS: THIAMINE 100 MG TAB PO SCH (23:17)
[2017-08-16] MEDS: metFORMIN 500 MG TAB PO SCH (23:17)
[2017-08-16] MEDS: PIPERACILLIN-TAZOBACTAM 3.375 GM in DEXTROSE/WATER 1 50ML.BAG IVPB SCH (23:17)
[2017-08-16] MEDS: ATORVASTATIN 80 MG TAB PO SCH (23:17)
[2017-08-16] MEDS: VANCOMYCIN 1,500 MG in SODIUM CHLORIDE 0.9% 250 ML IVPB SCH (23:21)
[2017-08-17] MEDS ORDERED: ACETAMINOPHEN TAB 325 MG TAB PO PRN (01:14)
[2017-08-17 05:40] LABS: Glucose,Whole Blood 168 mg/dL (75-99)
[2017-08-17 06:56] LABS: Anion Gap 11 mmol/L; Blood Urea Nitrogen 13 mg/dL (9-20); Calcium 8.6 mg/dL (8.4-10.2); Carbon Dioxide 25 mmol/L (22-30); Chloride 98 mmol/L (98-107); Glucose 139 mg/dL (74-99); Potassium 3.4 mmol/L (3.5-5.1); Sodium 134 mmol/L (137-145)
--- NOTE | 2017-08-17 08:32 | CONS ---
MARYANNE Infante is a 76-year-old gentleman who came to the emergency room last night. He has a longstanding history of wound on the left heel. According to the patient, he has been suffering from this issue for the last 7 months. He has been treated at the wound center at [facility] and he was seen in the wound center at [facility]. The wound has foul odor smell. He came with low-grade fever. The wound on the left heel has chronic wound with calcaneus bone is exposed with necrotic tissue present. The patient also has a history of coronary artery disease. The patient had history of GA on 05/08/2017. ON EXAMINATION: Patient was seen in his room. He was lying comfortably in bed. Neck is supple. Chest is clear. First and second. Heart sounds normal. VASCULAR EXAMINATION: Femorals are palpable bilateral. Posterior tibials and dorsalis pedis not palpable. Left heel wound bone is exposed. X-ray shows there is generalized osteopenia and also there is some vascular calcification noted. There is some subcutaneous air along the lateral aspect of the foot. This is most likely due to infectious process. His white cell count is 17,000. IMPRESSION: Chronic wound left heel with exposed calcaneum with loss of skin and there is necrotic tissue noted and there is foul odor smell of wound noted. PLAN: We will start on IV antibiotics and patient will need major amputation because of bone calcaneal exposed and lack of tissue and the patient has poor circulation and patient is nonambulatory. discussed with the family and follow with you. MMODL / IJN: [id number] /
[2017-08-17] MEDS: CLOPIDOGREL 75 MG TAB PO SCH (08:36)
[2017-08-17] MEDS: PANTOPRAZOLE 40 MG TABLET PO SCH (08:36)
[2017-08-17] MEDS: THIAMINE 100 MG TAB PO SCH ×2 (08:37→22:01)
[2017-08-17] MEDS: FUROSEMIDE 20 MG TAB PO SCH (08:37)
[2017-08-17] MEDS: metFORMIN 500 MG TAB PO SCH ×2 (08:37→16:40)
[2017-08-17] MEDS: PIPERACILLIN-TAZOBACTAM 3.375 GM in DEXTROSE/WATER 1 50ML.BAG IVPB SCH ×3 (08:38→23:29)
[2017-08-17 10:44] LABS: Basophils # (A) 0.1 k/uL (0-0.2); Basophils % (A) 1 %; Eosinophils % (A) 0 %; HCT 22.1 % (39.0-53.0); Hypochromasia Moderate; Lymphocytes # (A) 0.6 k/uL (1.0-4.8); Lymphocytes % (A) 4 %; MCH 26.3 pg (25.0-35.0); MCHC 31.6 g/dL (31.0-37.0); MCV 83.2 fL (80.0-100.0); Mean Platelet Volume 8.2; Monocytes % (A) 7 %; Neutrophils # (A) 12.1 k/uL (1.3-7.7); Neutrophils % (A) 86 %; Platelet Count 268 k/uL (150-450); Poikilocytosis Slight; RBC 2.66 m/uL (4.30-5.90); WBC 14.1 k/uL (3.8-10.6)
[2017-08-17 11:28] LABS: Glucose,Whole Blood 150 mg/dL (75-99)
[2017-08-17] MEDS ORDERED: Potassium Replacement Protocol 1 EACH MISC MISCELLANE PRN (12:03)
[2017-08-17] MEDS ORDERED: NITROGLYCERIN SL TABS 0.4 MG TAB SUBLINGUAL PRN (12:04)
[2017-08-17] MEDS: VANCOMYCIN 1,500 MG in SODIUM CHLORIDE 0.9% 250 ML IVPB SCH ×2 (12:14→23:29)
[2017-08-17] MEDS: SODIUM CHLORIDE 0.9% 1,000 ML IV SCH ×2 (12:15→20:49)
[2017-08-17] MEDS: COLLAGENASE 250 UNIT/GM OINTMENT 30 GM TUBE TOPICAL SCH (12:15)
[2017-08-17] MEDS: INSULIN ASPART 100 UNIT/ML 1 ML 10 ML VIAL SQ SCH ×3 (12:27→22:03)
[2017-08-17] MEDS: POTASSIUM CHLORIDE ER 20 MEQ TAB.ER PO SCH ×2 (12:54→14:57)
--- NOTE | 2017-08-17 13:44 | P.HPIM ---
History of Present Illness H&P Date: 08/17/17 Chief Complaint: Worsening left heel wound 76-year-old male who presents to emergency room on 08/16/2017 after being seen by Dr. Garcia in the wound care center for chronic left heel wound. The patient has had a wound to left feel for many months and has been following outpatient in the wound care center. His primary care physician is Dr. Velasquez. The patient was evaluated yesterday by Dr. Garcia and his wound was found to be very malodorous and did not appear to be improving. Earlier in the week, home care nursing notified Dr. Velasquez of patients wound and he was supposed to be admitted to the hospital at that time but refused. Dr. Garcia sent the patient to the emergency room for further evaluation and admission to the hospital. In the emergency room, an x-ray of the left foot was completed which was negative for acute osseous lesion, but did show evidence of soft tissue air suggesting infection and generalized osteopenia likely on the basis of osteoporosis. He also complained of left rib pain and stated he sustained a fall last week at home and has had pain since that time. A x-ray was completed which revealed COPD but did not show evidence of a displaced rib fracture. Laboratory studies reveal white count of 17.8, hemoglobin of 6.7, platelet count 329, INR 1.2, sodium 133, potassium 3.7. BUN 15. Creatinine 0.90. Lactic acid 1.7. Alkaline phosphatase 141. C-reactive protein 155. Stool for occult blood was negative. The patient has a history of diabetes mellitus, neuropathy, chronic back pain, coronary artery disease with stent placement to the LAD on 05/08/2017 and a second stent to the proximal LAD on 05/25/2017, and depression. He admits to drinking at least 3 beers per day. His most recent echocardiogram was completed in May 2017 which revealed moderate global hypokinesis of left ventricle, ejection fraction of 20-25%, mild mitral regurgitation, mild tricuspid regurgitation, mild pulmonary hypertension, and moderate aortic stenosis. He was admitted to the hospital under the care of Dr. Velasquez. Consultations have been placed to infectious disease and vascular surgery. His blood pressure remains stable with a last reading of 135/65. He was febrile overnight with a temperature of 101.3 F. This morning his temperature is 98.6. He is on room air with oxygen saturations greater than 92%. He denies shortness of breath or chest pain. Denies nausea or vomiting. He remains on ankle myosin and Zosyn. Left foot wound cultures are currently pending. Review of Systems GENERAL: Positive for generalized weakness. Positive for decreased appetite. Positive for fever. EYES: Denies blurred vision. Denies vision changes. Denies eye pain. EARS, NOSE, MOUTH, & THROAT: Denies headache. Denies sore throat. Denies ear pain. RESPIRATORY: Denies cough. Denies shortness of breath. Denies sputum production. Denies hemoptysis. CARDIOVASCULAR: Positive for left rib pain after sustaining a fall. Denies chest pain or pressure. Denies palpitations. Denies arrhythmias. GASTROINTESTINAL: Denies abdominal pain. Denies diarrhea. Denies constipation. Denies nausea. Denies vomiting. Denies heartburn. Denies blood in the stool. GENITOURINARY: Denies urinary frequency. Denies burning. Denies dysuria. Denies cloudy urine. Denies blood in the urine. MUSCULOSKELETAL: Denies myalgias. Denies joint swelling. Denies decreased range of motion beyond patients baseline. INTEGUMENTARY: Positive for chronic left heel wound with increase in order. Denies pruitis. Denies rash. PSYCHIATRIC: Denies suicidal or homicial ideations. ENDOCRINE: Denies weight change. Denies polydipsia. Denies polyuria. HEMATOLOGIC: Denies bleeding disorders. Past Medical History Past Medical History: Diabetes Mellitus Additional Past Medical History / Comment(s): Diabetic neuropathy chronic back pain Last Myocardial Infarction Date:: 05/08/2017 History of Any Multi-Drug Resistant Organisms: None Reported Past Surgical History: Back Surgery, Heart Catheterization With Stent Additional Past Surgical History / Comment(s): bilateral cataract removal with implants, right foot surgery, stent to LAD 05/08 Past Anesthesia/Blood Transfusion Reactions: No Reported Reaction Date of Last Stent Placement:: 05/08/2017 Past Psychological History: No Psychological Hx Reported, Depression Smoking Status: Never smoker Past Alcohol Use History: Daily Additional Past Alcohol Use History / Comment(s): 3 BEERS A DAY Past Drug Use History: None Reported - Past Family History Mother Family Medical History: No Reported History Father Family Medical History: Cancer Sister(s) Family Medical History: Cancer Medications and Allergies Home Medications Medication Instructions Recorded Confirmed Type metFORMIN HCL [Glucophage] 500 mg PO BID 12/08/16 08/16/17 History Atorvastatin [Lipitor] 80 mg PO HS tab 05/11/17 08/16/17 Rx Fluticasone Nasal [place] [Flonase 2 spray EA NOSTRIL DAILY PRN spray 05/11/17 Rx Nasal [place]] oxyCODONE-APAP 10-325MG [Percocet 1 tab PO Q8H PRN #30 tab 05/29/17 08/16/17 Rx 10-325 mg] Aspirin 81 mg PO W/SUPPER 07/09/17 08/16/17 History Clopidogrel [Plavix] 75 mg PO QAM 07/09/17 08/16/17 History Collagenase [Santyl] 1 applic TOPICAL DAILY 07/09/17 08/16/17 History DULoxetine HCL [Cymbalta] 60 mg PO W/SUPPER 07/09/17 08/16/17 History Furosemide [Lasix] 20 mg PO DAILY 07/09/17 08/16/17 History Ipratropium-Albuterol Nebulize 3 ml INHALATION RT-QID PRN 07/09/17 08/16/17 History [Duoneb 0.5 mg-3 mg/3 ml Soln] Lisinopril [Prinivil] 5 mg PO BID 07/09/17 08/16/17 History Metoprolol Tartrate [Lopressor] 25 mg PO BID 07/09/17 08/16/17 History Multivitamins, Thera [Multivitamin 1 tab PO W/SUPPER 07/09/17 08/16/17 History (formulary)] Nitroglycerin Sl Tabs [Nitrostat] 0.4 mg SUBLINGUAL Q5M PRN 07/09/17 08/16/17 History Pantoprazole [Protonix] 40 mg PO QAM 07/09/17 08/16/17 History Thiamine [Vitamin B-1] 100 mg PO BID 07/09/17 08/16/17 History Allergies Allergy/AdvReac Type Severity Reaction Status Date / Time No Known Allergies Allergy Verified 08/16/17 15:32 Physical Exam Vitals: Vital Signs Temp Pulse Pulse Resp BP BP Pulse Ox 08/17/17 08:30 98.6 F 83 18 135/65 97 08/17/17 04:00 97.2 F L 92 20 114/56 93 L 01/12/18 00:00 101.3 F H 99 20 149/70 95 08/16/17 21:22 100.5 F H 100 20 111/54 96 08/16/17 19:29 98.7 F 104 H 18 118/57 94 L 08/16/17 19:12 99.7 F H 104 H 20 134/65 97 08/16/17 19:07 98.7 F 104 H 20 118/57 94 L 08/16/17 18:42 98.7 F 100 18 118/87 08/16/17 18:32 99.5 F 94 16 159/99 08/16/17 16:06 69 18 108/56 97 08/16/17 14:04 97.5 F L 74 18 116/58 97 Intake and Output 08/16/17 08/17/17 08/17/17 22:59 06:59 14:59 Intake Total 310 450 180 Output Total 680 Balance 310 -230 180 Intake: IV 50 Piperacillin-Tazobactam 3 50 .375 gm In Dextrose/Water 1 50ml.bag @ 12.5 mls/hr IVPB Q8H [facility] Rx#: [id number] Intake, IV Titration 300 Amount Piperacillin-Tazobactam 3 50 .375 gm In Dextrose/Water 1 50ml.bag @ 12.5 mls/hr IVPB Q8H [facility] Rx#: [id number] Vancomycin 1,500 mg In 250 Sodium Chloride 0.9% 250 ml @ 125 mls/hr IVPB Q12H [facility] Rx#:[id number] Oral 100 180 Blood Product 310 Rc As-1 Unit 310 [id number] Output: Urine 680 Other: Weight 68 kg 67.5 kg GENERAL: This is a 76-year-old in no apparent distress at the time of examination. HEENT: Head is atraumatic, normocephalic. Pupils are equal, round, and reactive to light. Sclerae anicteric. Conjunctivae are clear. Mucus membranes of the mouth are moist. Neck is supple. RESPIRATORY: Clear to ausculation. No wheezes, rales, or rhonchi. No use of accessory muscles. Patient maintaining oxygen saturation greater than 92%. Mild tenderness noted upon palpation of left lower chest wall. CARDIOVASCULAR: Regular rate and rhythm. S1 and S2 noted. No JVD noted. No S3 or S4 noted. GASTROINTESTINAL: No distention noted. Abdomen soft and round. Normal active bowel sounds auscultated x 4 quadrants. No pain or tenderness noted upon palpation. INTEGUMENTARY: Malodorous left heel wound noted with large area of necrotic tissue on the heel. Dressing noted. No cyanosis. No jaundice. No rashes noted. EXTREMITIES: +1 lower extremity peripheral pulses. trace peripheral edema. No calf tenderness noted. NEUROLOGIC: Cranial nerves II-XII intact. PSYCHIATRIC: Awake, alert, and oriented X 3. Appropriate affect. Results CBC & Chem 7: 08/17/17 05:29 08/17/17 05:29 Labs: Abnormal Lab Results - Last 24 Hours (Table) 08/16/17 08/16/17 08/16/17 Range/Units 15:35 15:35 15:35 WBC 17.8 H (3.8-10.6) k/uL RBC 2.69 L (4.30-5.90) m/uL Hgb 6.7 L* D (13.0-17.5) gm/dL Hct 21.8 L (39.0-53.0) % MCHC 30.9 L (31.0-37.0) g/dL Neutrophils # 15.9 H (1.3-7.7) k/uL Lymphocytes # 0.6 L (1.0-4.8) k/uL ESR 114 H (0-15) mm/hr INR 1.2 H (<1.2) Sodium 133 L (137-145) mmol/L Potassium (3.5-5.1) mmol/L Chloride 95 L (98-107) mmol/L Creatinine (0.66-1.25) mg/dL Glucose 189 H (74-99) mg/dL POC Glucose (mg/dL) (75-99) mg/dL AST 14 L (17-59) U/L Alkaline Phosphatase 141 H (38-126) U/L C-Reactive Protein 155.0 H (<10.0) mg/L Total Protein 6.0 L (6.3-8.2) g/dL Albumin 3.0 L (3.5-5.0) g/dL Crossmatch 08/16/17 08/16/17 08/17/17 Range/Units 15:35 21:55 05:29 WBC (3.8-10.6) k/uL RBC (4.30-5.90) m/uL Hgb (13.0-17.5) gm/dL Hct (39.0-53.0) % MCHC (31.0-37.0) g/dL Neutrophils # (1.3-7.7) k/uL Lymphocytes # (1.0-4.8) k/uL ESR (0-15) mm/hr INR (<1.2) Sodium 134 L (137-145) mmol/L Potassium 3.4 L (3.5-5.1) mmol/L Chloride (98-107) mmol/L Creatinine 0.64 L (0.66-1.25) mg/dL Glucose 139 H (74-99) mg/dL POC Glucose (mg/dL) 217 H (75-99) mg/dL AST (17-59) U/L Alkaline Phosphatase (38-126) U/L C-Reactive Protein (<10.0) mg/L Total Protein (6.3-8.2) g/dL Albumin (3.5-5.0) g/dL Crossmatch See Detail 08/17/17 08/17/17 Range/Units 05:29 05:38 WBC 14.1 H (3.8-10.6) k/uL RBC 2.66 L (4.30-5.90) m/uL Hgb 7.0 L* (13.0-17.5) gm/dL Hct 22.1 L (39.0-53.0) % MCHC (31.0-37.0) g/dL Neutrophils # 12.1 H (1.3-7.7) k/uL Lymphocytes # 0.6 L (1.0-4.8) k/uL ESR (0-15) mm/hr INR (<1.2) Sodium (137-145) mmol/L Potassium (3.5-5.1) mmol/L Chloride (98-107) mmol/L Creatinine (0.66-1.25) mg/dL Glucose (74-99) mg/dL POC Glucose (mg/dL) 168 H (75-99) mg/dL AST (17-59) U/L Alkaline Phosphatase (38-126) U/L C-Reactive Protein (<10.0) mg/L Total Protein (6.3-8.2) g/dL Albumin (3.5-5.0) g/dL Crossmatch Microbiology - Last 24 Hours (Table) 08/16/17 17:00 Gram Stain - Preliminary Foot - Left Wound Culture - Preliminary Thrombosis Risk Factor Assmnt - Choose All That Apply Each Factor Represents 1 point: Medical pt on bed rest Each Risk Factor Represents 3 Points: Age 75 years or older Other congenital or acquired thrombophilia - If yes, enter type in comment: No Thrombosis Risk Factor Assessment Total Risk Factor Score: 4 Thrombosis Risk Factor Assessment Level: Moderate Risk Assessment and Plan Plan: ASSESSMENT: 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 , suspect osteomyelitis Normocytic normochromic anemia, hgb 6.7 on admission, previous hgb 9.4, stool for occult blood negative, no evidence of acute blood loss Recent fall from standing at home with subsequent left lower chest wall tenderness, x-ray negative for rib fracture, likely rib contusion Febrile illness and leukocytosis, secondary to osteomyelitis Sepsis secondary to left heel wound and suspected osteomyelitis Coronary artery disease with previous stent placement to LAD x 2 Chronic systolic congestive heart failure, most recent echocardiogram reveals ejection fraction of 25-30% Chronic alcohol use, patient drinks minimum of 3 beers a day Diabetes mellitus, type II, hemoglobin A1c pending Essential hypertension Moderate to severe aortic stenosis Osteoarthritis Hypokalemia PLAN: -Dr. Grace on consult. Appreciate recommendations and input -Per Dr. Grace, patient will require amputation -Infectious disease on consult. Appreciate recommendations and input -Antibiotic regimen per ID. Currently on vancomycin and Zosyn -Continue dressing changes with Santyl to necrotic area of heel -Await results of wound culture -Await results of blood culture -Obtain hemoglobin A1c -Capillary blood glucose Accu-Cheks before meals and at bedtime -NovoLog sliding scale coverage before meals and at bedtime -Replace potassium per protocol -Transfuse 1 unit packed RBCs -Recheck hemoglobin in AM -Home meds as appropriate -Monitor labs -GI prophylaxis: Protonix 40 mg by mouth daily -DVT prophylaxis: Venodyne's to bilateral lower extremities -Monitor vital signs and address as appropriate -Discharge planning: Patient will likely require subacute rehab -PT/OT consult -Further recommendations pending patient's course Nurse practitioner note has been reviewed by physician. Signing provider agrees with the documented findings, assessment, and plan of care.
--- NOTE | 2017-08-17 15:01 | P.CONS ---
History of Present Illness - Reason for Consult Consult date: 08/17/17 Osteomyelitis - History of Present Illness This is a 76-year-old male patient who is a long-standing history of a nonhealing wound to the left heel. He was at [facility] and receiving wound care from Dr. Garcia but went home about one month ago. He has been following in the wound healing center with Dr. Garcia and his most recent visit was on August 16 and there was significant worsening of his wound and he was sent to be clear in [facility] in Hospital emergency center for evaluation. Information from the nursing staff is that patient has been noncompliant with home care and is actually canceled bone care and has refused to have his dressing changed at home. Patient presented with a white count of 17.8, hemoglobin 6.7, lactic acid was 1.7. Troponin 1.3. Patient was started on vancomycin and Zosyn and admitted to the selective care unit. He has been seen in consultation by Dr. Grace with plan for amputation as patient has bone exposed with necrotic tissue. Wound culture is showing rare polys or for nuclear leukocytes, many gram-negative bacilli, few gram-positive cocci with multiple morphologies present. Sed rate is 114, CRP 155. Recent pre-albumin done in July is less than 5, hemoglobin A1c 6.1. Patient is noted to have a very foul odor coming from his left heel as well as significant neuropathy to the bilateral feet. Review of Systems All systems: negative Constitutional: Reports anorexia, Reports chills, Reports fatigue, Reports fever , Reports malaise, Reports poor appetite Eyes: denies blurred vision, denies pain Ears, nose, mouth and throat: Denies dental pain, Denies headache, Denies mouth pain, Denies sore throat Cardiovascular: Denies chest pain, Denies edema, Denies leg edema, Denies lightheadedness, Denies shortness of breath, Denies syncope Respiratory: Denies cough Gastrointestinal: Reports loss of appetite, Denies abdominal pain, Denies diarrhea, Denies nausea, Denies vomiting Genitourinary: Denies dysuria Musculoskeletal: Denies myalgias Integumentary: Reports wounds, Denies pruritus, Denies rash Neurological: Denies numbness, Denies weakness Psychiatric: Denies anxiety, Denies depression Endocrine: Denies fatigue, Denies weight change Past Medical History Past Medical History: Diabetes Mellitus Additional Past Medical History / Comment(s): Diabetic neuropathy chronic back pain Last Myocardial Infarction Date:: 05/08/2017 History of Any Multi-Drug Resistant Organisms: None Reported Past Surgical History: Back Surgery, Heart Catheterization With Stent Additional Past Surgical History / Comment(s): bilateral cataract removal with implants, right foot surgery, stent to LAD 05/08 Past Anesthesia/Blood Transfusion Reactions: No Reported Reaction Date of Last Stent Placement:: 05/08/2017 Past Psychological History: No Psychological Hx Reported, Depression Smoking Status: Never smoker Past Alcohol Use History: Daily Additional Past Alcohol Use History / Comment(s): Patient lives at home alone. Daughter and son-in-law check on him. Daughter has a cat in the home. He drinks 3-4 beers per day. He denies any medical marijuana, marijuana, street drug use. He has worked for [employer] and retired. He denies any service. He denies any recent travel. Past Drug Use History: None Reported - Past Family History Mother Family Medical History: No Reported History Father Family Medical History: Cancer Sister(s) Family Medical History: Cancer Medications and Allergies Home Medications Medication Instructions Recorded Confirmed Type metFORMIN HCL [Glucophage] 500 mg PO BID 12/08/16 08/16/17 History Atorvastatin [Lipitor] 80 mg PO HS tab 05/11/17 08/16/17 Rx Fluticasone Nasal [place] [Flonase 2 spray EA NOSTRIL DAILY PRN spray 05/11/17 Rx Nasal [place]] oxyCODONE-APAP 10-325MG [Percocet 1 tab PO Q8H PRN #30 tab 05/29/17 08/16/17 Rx 10-325 mg] Aspirin 81 mg PO W/SUPPER 07/09/17 08/16/17 History Clopidogrel [Plavix] 75 mg PO QAM 07/09/17 08/16/17 History Collagenase [Santyl] 1 applic TOPICAL DAILY 07/09/17 08/16/17 History DULoxetine HCL [Cymbalta] 60 mg PO W/SUPPER 07/09/17 08/16/17 History Furosemide [Lasix] 20 mg PO DAILY 07/09/17 08/16/17 History Ipratropium-Albuterol Nebulize 3 ml INHALATION RT-QID PRN 07/09/17 08/16/17 History [Duoneb 0.5 mg-3 mg/3 ml Soln] Lisinopril [Prinivil] 5 mg PO BID 07/09/17 08/16/17 History Metoprolol Tartrate [Lopressor] 25 mg PO BID 07/09/17 08/16/17 History Multivitamins, Thera [Multivitamin 1 tab PO W/SUPPER 07/09/17 08/16/17 History (formulary)] Nitroglycerin Sl Tabs [Nitrostat] 0.4 mg SUBLINGUAL Q5M PRN 07/09/17 08/16/17 History Pantoprazole [Protonix] 40 mg PO QAM 07/09/17 08/16/17 History Thiamine [Vitamin B-1] 100 mg PO BID 07/09/17 08/16/17 History Allergies Allergy/AdvReac Type Severity Reaction Status Date / Time No Known Allergies Allergy Verified 08/16/17 15:32 Physical Exam Vitals: Vital Signs Temp Pulse Pulse Resp BP BP Pulse Ox 08/17/17 08:30 98.6 F 83 18 135/65 97 08/17/17 04:00 97.2 F L 92 20 114/56 93 L 08/17/17 00:00 101.3 F H 99 20 149/70 95 08/16/17 21:22 100.5 F H 100 20 111/54 96 08/16/17 19:29 98.7 F 104 H 18 118/57 94 L 08/16/17 19:12 99.7 F H 104 H 20 134/65 97 08/16/17 19:07 98.7 F 104 H 20 118/57 94 L 08/16/17 18:42 98.7 F 100 18 118/87 08/16/17 18:32 99.5 F 94 16 159/99 08/16/17 16:06 69 18 108/56 97 Intake and Output 08/16/17 08/17/17 08/17/17 22:59 06:59 14:59 Intake Total 310 450 180 Output Total 680 Balance 310 -230 180 Intake: IV 50 Piperacillin-Tazobactam 3 50 .375 gm In Dextrose/Water 1 50ml.bag @ 12.5 mls/hr IVPB Q8H [facility] Rx#: [id number] Intake, IV Titration 300 Amount Piperacillin-Tazobactam 3 50 .375 gm In Dextrose/Water 1 50ml.bag @ 12.5 mls/hr IVPB Q8H [facility] Rx#: [id number] Vancomycin 1,500 mg In 250 Sodium Chloride 0.9% 250 ml @ 125 mls/hr IVPB Q12H [facility] Rx#:[id number] Oral 100 180 Blood Product 310 Rc As-1 Unit 310 [id number] Output: Urine 680 Other: Weight 68 kg 67.5 kg 67.5 kg Patient Weight 08/18/17 06:59 Weight 67.5 kg Gen: This is a 76-year-old male. He is sitting up in bed and appears to be in no acute distress. HEENT: Head is atraumatic, normocephalic. Pupils equal, round. Sclerae is anicteric. NECK: Supple. No JVD. No lymphadenopathy. No thyromegaly. LUNGS: Clear to auscultation. No wheezes or rhonchi. No intercostal retractions. HEART: Regular rate and rhythm. Systolic murmur. ABDOMEN: Soft. Bowel sounds are present. No masses. No tenderness. EXTREMITIES: 1+ pedal edema. Weak dorsalis pedis bilaterally. Patient has dressing in place to the left heel which was not removed and deferred to Dr. Farfan. Follow odor noted. NEUROLOGICAL: Patient is awake, alert and oriented x3. Cranial nerves 2 through 12 are grossly intact. Results Results: Laboratory Results WBC 14.1 k/uL (3.8-10.6) H 08/17/17 05:29 RBC 2.66 m/uL (4.30-5.90) L 08/17/17 05:29 Hgb 7.0 gm/dL (13.0-17.5) L* 08/17/17 05:29 Hct 22.1 % (39.0-53.0) L 08/17/17 05:29 MCV 83.2 fL (80.0-100.0) 08/17/17 05:29 MCH 26.3 pg (25.0-35.0) 08/17/17 05:29 MCHC 31.6 g/dL (31.0-37.0) 08/17/17 05:29 RDW 15.0 % (11.5-15.5) 08/17/17 05:29 Plt Count 268 k/uL (150-450) 08/17/17 05:29 Neutrophils % 86 % 08/17/17 05:29 Lymphocytes % 4 % 08/17/17 05:29 Monocytes % 7 % 08/17/17 05:29 Eosinophils % 0 % 08/17/17 05:29 Basophils % 1 % 08/17/17 05:29 Neutrophils # 12.1 k/uL (1.3-7.7) H 08/17/17 05:29 Lymphocytes # 0.6 k/uL (1.0-4.8) L 08/17/17 05:29 Monocytes # 1.0 k/uL (0-1.0) 08/17/17 05:29 Eosinophils # 0.0 k/uL (0-0.7) 08/17/17 05:29 Basophils # 0.1 k/uL (0-0.2) 08/17/17 05:29 Manual Slide Review Performed 08/16/17 15:35 Polychromasia Present 08/16/17 15:35 Hypochromasia Moderate 08/17/17 05:29 Poikilocytosis Slight 08/17/17 05:29 Poikilocytosis (manual Present 08/16/17 15:35 Ovalocytes Present 08/16/17 15:35 ESR 114 mm/hr (0-15) H 08/16/17 15:35 PT 11.2 sec (9.0-12.0) 08/16/17 15:35 INR 1.2 (<1.2) H 08/16/17 15:35 APTT 27.6 sec (22.0-30.0) 08/16/17 15:35 Sodium 134 mmol/L (137-145) L 08/17/17 05:29 Potassium 3.4 mmol/L (3.5-5.1) L 08/17/17 05:29 Chloride 98 mmol/L (98-107) 08/17/17 05:29 Carbon Dioxide 25 mmol/L (22-30) 08/17/17 05:29 Anion Gap 11 mmol/L 08/17/17 05:29 BUN 13 mg/dL (9-20) 08/17/17 05:29 Creatinine 0.64 mg/dL (0.66-1.25) L 08/17/17 05:29 Est GFR (MDRD) Af Amer >60 (>60 ml/min/1.73 sqM) 08/17/17 05:29 Est GFR (MDRD) Non-Af >60 (>60 ml/min/1.73 sqM) 08/17/17 05:29 Glucose 139 mg/dL (74-99) H 08/17/17 05:29 POC Glucose (mg/dL) 150 mg/dL (75-99) H 08/17/17 11:21 POC Glu [employer] Trupti Gonzalez 08/17/17 11:21 Plasma Lactic Acid Ramirez 1.7 mmol/L (0.7-2.0) 08/16/17 15:35 Calcium 8.6 mg/dL (8.4-10.2) 08/17/17 05:29 Total Bilirubin 0.8 mg/dL (0.2-1.3) 08/16/17 15:35 AST 14 U/L (17-59) L 08/16/17 15:35 ALT 21 U/L (21-72) 08/16/17 15:35 Alkaline Phosphatase 141 U/L (38-126) H 08/16/17 15:35 C-Reactive Protein 155.0 mg/L (<10.0) H 08/16/17 15:35 Total Protein 6.0 g/dL (6.3-8.2) L 08/16/17 15:35 Albumin 3.0 g/dL (3.5-5.0) L 08/16/17 15:35 Stool Occult Blood Negative (Negative) 08/16/17 17:50 Blood Type O Positive 08/16/17 15:35 Blood Type Recheck No 08/16/17 15:35 Antibody Screen NEGATIVE 08/16/17 15:35 Crossmatch See Detail 08/16/17 15:35 Spec Expiration Date 08/19/2017233108/16/17 15:35 CBC & Chem 7: 08/20/17 06:30 08/20/17 06:30 Labs: Abnormal Lab Results - Last 24 Hours (Table) 08/16/17 08/16/17 08/16/17 Range/Units 15:35 15:35 15:35 WBC 17.8 H (3.8-10.6) k/uL RBC 2.69 L (4.30-5.90) m/uL Hgb 6.7 L* D (13.0-17.5) gm/dL Hct 21.8 L (39.0-53.0) % MCHC 30.9 L (31.0-37.0) g/dL Neutrophils # 15.9 H (1.3-7.7) k/uL Lymphocytes # 0.6 L (1.0-4.8) k/uL ESR 114 H (0-15) mm/hr INR 1.2 H (<1.2) Sodium 133 L (137-145) mmol/L Potassium (3.5-5.1) mmol/L Chloride 95 L (98-107) mmol/L Creatinine (0.66-1.25) mg/dL Glucose 189 H (74-99) mg/dL POC Glucose (mg/dL) (75-99) mg/dL AST 14 L (17-59) U/L Alkaline Phosphatase 141 H (38-126) U/L C-Reactive Protein 155.0 H (<10.0) mg/L Total Protein 6.0 L (6.3-8.2) g/dL Albumin 3.0 L (3.5-5.0) g/dL Crossmatch 08/16/17 08/16/17 08/17/17 Range/Units 15:35 21:55 05:29 WBC (3.8-10.6) k/uL RBC (4.30-5.90) m/uL Hgb (13.0-17.5) gm/dL Hct (39.0-53.0) % MCHC (31.0-37.0) g/dL Neutrophils # (1.3-7.7) k/uL Lymphocytes # (1.0-4.8) k/uL ESR (0-15) mm/hr INR (<1.2) Sodium 134 L (137-145) mmol/L Potassium 3.4 L (3.5-5.1) mmol/L Chloride (98-107) mmol/L Creatinine 0.64 L (0.66-1.25) mg/dL Glucose 139 H (74-99) mg/dL POC Glucose (mg/dL) 217 H (75-99) mg/dL AST (17-59) U/L Alkaline Phosphatase (38-126) U/L C-Reactive Protein (<10.0) mg/L Total Protein (6.3-8.2) g/dL Albumin (3.5-5.0) g/dL Crossmatch See Detail 08/17/17 08/17/17 08/17/17 Range/Units 05:29 05:38 11:21 WBC 14.1 H (3.8-10.6) k/uL RBC 2.66 L (4.30-5.90) m/uL Hgb 7.0 L* (13.0-17.5) gm/dL Hct 22.1 L (39.0-53.0) % MCHC (31.0-37.0) g/dL Neutrophils # 12.1 H (1.3-7.7) k/uL Lymphocytes # 0.6 L (1.0-4.8) k/uL ESR (0-15) mm/hr INR (<1.2) Sodium (137-145) mmol/L Potassium (3.5-5.1) mmol/L Chloride (98-107) mmol/L Creatinine (0.66-1.25) mg/dL Glucose (74-99) mg/dL POC Glucose (mg/dL) 168 H 150 H (75-99) mg/dL AST (17-59) U/L Alkaline Phosphatase (38-126) U/L C-Reactive Protein (<10.0) mg/L Total Protein (6.3-8.2) g/dL Albumin (3.5-5.0) g/dL Crossmatch Microbiology - Last 24 Hours (Table) 08/16/17 17:00 Gram Stain - Preliminary Foot - Left Wound Culture - Preliminary Assessment and Plan Plan: This is a 76-year-old male patient who presented to the hospital with sepsis secondary to 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 Patient has been noncompliant in the outpatient setting. He is currently on Zosyn and vancomycin which will be continued. Initial wound culture in progress. The cultures status received. Dietitian has added and protein supplement for her severe protein calorie malnutrition and aid in wound healing. He has a pre-albumin done in July of less than 5. Multivitamin will be added. Incentive spirometry added to reduce incidence of atelectasis and hospital-acquired pneumonia. Regarding diabetes, his last hemoglobin A1c was 6.1. Dr. Grace is planning for amputation. Continue supportive care. Further recommendations as patient progresses. The above dictated assessment and findings were discussed with Dr. Farfan. The impression and plan of care have been directed as dictated. Sugey Hogan nurse practitioner acting as scribe for Dr. Farfan.
[2017-08-17 16:30] LABS: Glucose,Whole Blood 148 mg/dL (75-99)
[2017-08-17] MEDS: HYDROmorphone 0.5 MG/0.5 ML SYRINGE IVP PRN (16:33)
[2017-08-17] MEDS: oxyCODONE-APAP 10-325MG 1 EACH TAB PO PRN ×2 (16:38→22:33)
[2017-08-17] MEDS: ASPIRIN 81 MG PO SCH (16:40)
[2017-08-17] MEDS: DULoxetine HCL 60 MG CAPSULE.DR PO SCH (16:40)
--- NOTE | 2017-08-17 18:05 | PN ---
PROGRESS NOTE This is a 76-year-old gentleman who came with gangrene of the left foot with exposed calcaneum. He has some gas noted by x-ray. Foul odor noted. Patient was the evaluated today by me and I have discussed with Dr. Farfan and Dr. Velasquez about the options and also with the patient and the family. The patient's femoral is 2+. Popliteal, dorsalis pedis, posterior tibial are not palpable. Patient has a large necrotic wound, left heel. Options were discussed, below-knee versus above the knee. This gentleman is a 76-year-old, and below the knee because of his poor circulation carries a 50% chance of healing. Above the knee there is a decent chance of healing. He has had 2 myocardial infarctions in the past. His hemoglobin is low. We gave him some blood today. The patient has agreed to go for above the knee amputation. Risks and complications were discussed: Non-healing, heart attack, bleeding, infection. Discussed with Dr. Velasquez, and he will give the clearance. Also patient was seen by Cardiology. MMODL / IJN: [id number] /
[2017-08-17 18:49] LABS: Appearance,Urine Clear (Clear); Bilirubin,Urine Negative (Negative); Blood,Urine Negative (Negative); Color,Urine Yellow; Glucose,Urine (UA) Negative (Negative); Ketones,Urine Negative (Negative); Leukocyte Esterase,Urine Negative (Negative); Nitrite,Urine Negative (Negative); PH, Urine 5.5 (5.0-8.0); Protein,Urine Negative (Negative); Specific Gravity,Urine 1.012 (1.001-1.035); Urobilinogen,Urine <2.0 mg/dL (<2.0)
[2017-08-17 18:50] LABS: Hemoglobin A1C 5.8 % (4.0-6.0)
[2017-08-17] MEDS: METOPROLOL TARTRATE 25 MG TAB PO SCH (20:49)
[2017-08-17] MEDS: LISINOPRIL 5 MG TAB PO SCH (20:49)
[2017-08-17] MEDS: ATORVASTATIN 80 MG TAB PO SCH (20:49)
[2017-08-17 21:02] LABS: Glucose,Whole Blood 122 mg/dL (75-99)
[2017-08-17 21:25] LABS: HCT 25.1 % (39.0-53.0); HGB 7.8 gm/dL (13.0-17.5); Hypochromasia Slight; MCH 26.8 pg (25.0-35.0); MCHC 31.2 g/dL (31.0-37.0); Mean Platelet Volume 7.9; Platelet Count 263 k/uL (150-450); Poikilocytosis Slight; RBC 2.91 m/uL (4.30-5.90); RDW 15.8 % (11.5-15.5); WBC 14.1 k/uL (3.8-10.6)
--- NOTE | 2017-08-17 21:26 | P.CON ---
Consult Note - . Consult date: 08/17/17 Assessment/Plan:: This is a 76-year-old male patient who is a long-standing history of a nonhealing wound to the left heel. He was at [facility] and receiving wound care from Dr. Garcia but went home about one month ago. He has been following in the wound healing center with Dr. Garcia and his most recent visit was on August 16 and there was significant worsening of his wound and he was sent to be clear in [facility] emergency [facility] for evaluation. Information from the nursing staff is that patient has been noncompliant with home care and is actually canceled home care and has refused to have his dressing changed at home. Patient presented with a white count of 17.8, hemoglobin 6.7, lactic acid was 1.7. Troponin 1.3. Patient was started on vancomycin and Zosyn and admitted to the selective care unit. He has been seen in consultation by Dr. Grace with plan for amputation as patient has bone exposed with necrotic tissue. Wound culture is showing rare polys or for nuclear leukocytes, many gram-negative bacilli, few gram-positive cocci with multiple morphologies present. Sed rate is 114, CRP 155. Recent pre-albumin done in July is less than 5, hemoglobin A1c 6.1. Patient is noted to have a very foul odor coming from his left heel as well as significant neuropathy to the bilateral feet. Please see the consult note is dictated by nurse practitioner Mrs. Sugey Hogan. As noted the patient has a long-standing history of ulceration to the left foot. Despite this he is now had a marked worsening with exposure of a large amount of the calcaneus, associated with gangrenous changes and radiological evidence of gas in the tissue. The patient is evaluated by vascular surgery and the case has been discussed at length with vascular surgery and the primary care service. They will be working toward an amputation quickly. Above-the- knee amputation is probably most practical but it is possible that a bit. below -the-knee amputation may be performed. Aggressive antimicrobial therapy with piperacillin tazobactam and vancomycin utilize at this time. Local wound care is to absorb drainage and try to enhance comfort. Cultures are in process will be monitored for bacteremia. So will need to have a marked improvement of his nutritional status if he is to have any extensive healing in the postoperative time frame. Given his many comorbidities he is at great risk for a poor outcome which the patient and the family understand. I Agree with evaluation, assessment and plan as dictated by nurse practitioner Mrs. Sugey Hogan.
[2017-08-18 06:01] LABS: Basophils % (A) 0 %; Eosinophils # (A) 0.1 k/uL (0-0.7); Eosinophils % (A) 0 %; HCT 24.5 % (39.0-53.0); HGB 7.8 gm/dL (13.0-17.5); Hypochromasia Moderate; Lymphocytes # (A) 0.7 k/uL (1.0-4.8); Lymphocytes % (A) 6 %; MCH 27.3 pg (25.0-35.0); MCV 85.4 fL (80.0-100.0); Mean Platelet Volume 7.8; Monocytes # (A) 0.6 k/uL (0-1.0); Monocytes % (A) 5 %; Neutrophils # (A) 10.9 k/uL (1.3-7.7); Neutrophils % (A) 87 %; Platelet Count 282 k/uL (150-450); Poikilocytosis Slight; RBC 2.87 m/uL (4.30-5.90); RDW 15.5 % (11.5-15.5); WBC 12.6 k/uL (3.8-10.6)
[2017-08-18 06:12] LABS: Glucose,Whole Blood 118 mg/dL (75-99)
[2017-08-18] MEDS: oxyCODONE-APAP 10-325MG 1 EACH TAB PO PRN ×2 (06:22→19:33)
[2017-08-18 06:23] LABS: Anion Gap 9 mmol/L; Blood Urea Nitrogen 11 mg/dL (9-20); Calcium 8.7 mg/dL (8.4-10.2); Carbon Dioxide 25 mmol/L (22-30); Chloride 99 mmol/L (98-107); Glucose 104 mg/dL (74-99); Potassium 3.7 mmol/L (3.5-5.1); Sodium 133 mmol/L (137-145)
[2017-08-18] MEDS: INSULIN ASPART 100 UNIT/ML 1 ML 10 ML VIAL SQ SCH ×4 (08:19→21:36)
--- NOTE | 2017-08-18 08:53 | P.CRDCN ---
History of Present Illness Consult date: 08/18/17 Requesting physician: Be Velasquez Reason for Consult (text): surgical clearance Chief complaint: left heel wound infection History of present illness: 68-year-old gentleman with history of diabetes mellitus, CAD, recent stent placement to the LAD in May 2017, ischemic cardiomyopathy with a known ejection fraction of 20-25%, chronic left heel ulcer and known moderate AF. He was sent to the emergency department by Dr. Garcia from the wound center due to nonhealing left heel wound that was malodorous. Radiology was asked to see the patient in consultation for preoperative clearance. He has been scheduled for an [id number]-[id number] amputation to be done this morning. The cardiac standpoint, patient has been feeling well, he denies any complaints of shortness of breath, palpitations or chest discomfort. EKG on admission shows sinus rhythm with no acute changes compared to previous. He is currently on aspirin 81 mg by mouth daily, atorvastatin 80 mg by mouth daily at bedtime, Plavix 75 mg by mouth daily, lisinopril 5 mg by mouth twice a day and metoprolol tartrate 25 mg by mouth twice a day. Past Medical History Past Medical History: Diabetes Mellitus Additional Past Medical History / Comment(s): Diabetic neuropathy chronic back pain Last Myocardial Infarction Date:: 05/08/2017 History of Any Multi-Drug Resistant Organisms: None Reported Past Surgical History: Back Surgery, Heart Catheterization With Stent Additional Past Surgical History / Comment(s): bilateral cataract removal with implants, right foot surgery, stent to LAD 05/08 Past Anesthesia/Blood Transfusion Reactions: No Reported Reaction Date of Last Stent Placement:: 05/08/2017 Past Psychological History: No Psychological Hx Reported, Depression Smoking Status: Never smoker Past Alcohol Use History: Daily Additional Past Alcohol Use History / Comment(s): 3 BEERS A DAY Past Drug Use History: None Reported - Past Family History Mother Family Medical History: No Reported History Father Family Medical History: Cancer Sister(s) Family Medical History: Cancer Medications and Allergies Home Medications Medication Instructions Recorded Confirmed Type metFORMIN HCL [Glucophage] 500 mg PO BID 12/08/16 08/16/17 History Atorvastatin [Lipitor] 80 mg PO HS tab 05/11/17 08/16/17 Rx Fluticasone Nasal [place] [Flonase 2 spray EA NOSTRIL DAILY PRN spray 05/11/17 Rx Nasal [place]] oxyCODONE-APAP 10-325MG [Percocet 1 tab PO Q8H PRN #30 tab 05/29/17 08/16/17 Rx 10-325 mg] Aspirin 81 mg PO W/SUPPER 07/09/17 08/16/17 History Clopidogrel [Plavix] 75 mg PO QAM 07/09/17 08/16/17 History Collagenase [Santyl] 1 applic TOPICAL DAILY 07/09/17 08/16/17 History DULoxetine HCL [Cymbalta] 60 mg PO W/SUPPER 07/09/17 08/16/17 History Furosemide [Lasix] 20 mg PO DAILY 07/09/17 08/16/17 History Ipratropium-Albuterol Nebulize 3 ml INHALATION RT-QID PRN 07/09/17 08/16/17 History [Duoneb 0.5 mg-3 mg/3 ml Soln] Lisinopril [Prinivil] 5 mg PO BID 07/09/17 08/16/17 History Metoprolol Tartrate [Lopressor] 25 mg PO BID 07/09/17 08/16/17 History Multivitamins, Thera [Multivitamin 1 tab PO W/SUPPER 07/09/17 08/16/17 History (formulary)] Nitroglycerin Sl Tabs [Nitrostat] 0.4 mg SUBLINGUAL Q5M PRN 07/09/17 08/16/17 History Pantoprazole [Protonix] 40 mg PO QAM 07/09/17 08/16/17 History Thiamine [Vitamin B-1] 100 mg PO BID 07/09/17 08/16/17 History Allergies Allergy/AdvReac Type Severity Reaction Status Date / Time No Known Allergies Allergy Verified 08/16/17 15:32 Physical Exam Vitals: Vital Signs Temp Pulse Pulse Resp BP BP Pulse Ox 08/18/17 08:07 98.8 F 87 16 155/79 94 L 08/18/17 08:00 98.8 F 87 16 155/79 94 L 08/18/17 04:00 96.2 F L 84 20 151/70 97 08/18/17 00:00 96.4 F L 77 20 137/73 98 08/17/17 20:00 98.7 F 84 20 141/71 98 08/17/17 19:04 98.2 F 18 135/85 98 08/17/17 16:55 98.4 F 82 18 149/70 98 08/17/17 16:51 98.4 F 82 18 149/70 98 08/17/17 16:11 98.6 F 81 18 136/65 98 08/17/17 16:02 98.1 F 81 18 135/65 97 08/17/17 12:00 98 F 84 18 121/71 98 Intake and Output 08/17/17 08/18/17 08/18/17 22:59 06:59 14:59 Intake Total 310 0 Output Total 600 Balance 310 -600 0 Intake: Blood Product 310 0 Rc As-1 Unit 310 [id number] Rc As-1 Unit 0 [id number] Output: Urine 600 Other: Voiding Method Urinal Urinal Urinal # Voids 1 1 Weight 67.5 kg 69 kg PHYSICAL EXAMINATION: HEENT: Head is atraumatic, normocephalic. Pupils equal, round. Neck is supple. There is no elevated jugular venous pressure. HEART EXAMINATION: Heart sounds regular, S1 and S2 with a systolic murmur. CHEST EXAMINATION: Lungs are clear to auscultation and precussion. No chest wall tenderness is noted on palpation or with deep breathing. ABDOMEN: Soft, nontender. Bowel sounds are heard. No organomegaly noted. EXTREMITIES: +1 peripheral pulses with evidence of 1+ left lower extremity peripheral edema and no calf tenderness noted. NEUROLOGIC patient is awake, alert and oriented x3. . Results 08/18/17 05:15 08/18/17 05:15 CBC 08/17/17 08/17/17 08/18/17 Range/Units 05:29 21:10 05:15 WBC 14.1 H 14.1 H 12.6 H (3.8-10.6) k/uL RBC 2.66 L 2.91 L 2.87 L (4.30-5.90) m/uL Hgb 7.0 L* 7.8 L 7.8 L (13.0-17.5) gm/dL Hct 22.1 L 25.1 L 24.5 L (39.0-53.0) % Plt Count 268 263 282 (150-450) k/uL Comprehensive Metabolic Panel 01/13/18 Range/Units 05:15 Sodium 133 L (137-145) mmol/L Potassium 3.7 (3.5-5.1) mmol/L Chloride 99 (98-107) mmol/L Carbon Dioxide 25 (22-30) mmol/L BUN 11 (9-20) mg/dL Creatinine 0.60 L (0.66-1.25) mg/dL Glucose 104 H (74-99) mg/dL Calcium 8.7 (8.4-10.2) mg/dL Current Medications Generic Name Dose Route Start Last Admin Trade Name Freq PRN Reason Stop Dose Admin Acetaminophen 650 mg 08/17/17 01:14 08/17/17 02:54 Tylenol Tab PO 650 mg Q6HR PRN Administration Fever and/ or MILD Pain Albuterol/Ipratropium 3 ml 08/16/17 18:30 Duoneb 0.5 Mg-3 Mg/3 Ml Soln INHALATION RT-QID PRN Shortness Of Breath Aspirin 81 mg 08/17/17 17:30 08/17/17 16:40 Aspirin PO 81 mg W/SUPPER [facility] Administration Atorvastatin Calcium 80 mg 08/16/17 21:00 08/17/17 20:49 Lipitor PO 80 mg HS [facility] Administration Clopidogrel Bisulfate 75 mg 08/17/17 09:00 08/17/17 08:36 Plavix PO 75 mg QAM [facility] Administration Collagenase 1 applic 08/17/17 09:00 08/17/17 12:15 Santyl TOPICAL 1 applic DAILY [facility] Administration Duloxetine HCl 60 mg 08/17/17 17:30 08/17/17 16:40 Cymbalta PO 60 mg W/SUPPER [facility] Administration Fluticasone Propionate 2 spray 08/16/17 18:30 Flonase Nasal [place] EA NOSTRIL DAILY PRN Allergy Symptoms Furosemide 20 mg 08/17/17 09:00 08/17/17 08:37 Lasix PO 20 mg DAILY [facility] Administration Hydromorphone HCl 0.5 mg 08/17/17 16:24 08/17/17 16:33 Dilaudid IVP 0.5 mg Q3HR PRN Administration Moderate Pain Vancomycin HCl 1,500 mg/ 250 mls @ 125 mls/hr 08/17/17 00:00 08/17/17 23:29 Sodium Chloride IVPB 125 mls/hr Q12H [facility] Administration Sodium Chloride 1,000 mls @ 80 mls/hr 08/16/17 18:30 08/17/17 20:49 Saline 0.9% IV 80 mls/hr .[id number] [facility] Administration Piperacillin/Tazobactam/ 50 mls @ 12.5 mls/hr 08/17/17 00:00 08/17/17 23:29 Dextrose 3.375 gm/ IV Solution IVPB 12.5 mls/hr Q8H [facility] Administration Insulin Aspart 0 unit 08/17/17 12:30 08/18/17 08:19 Novolog SQ Not Given ACHS [facility] Protocol Lisinopril 5 mg 08/17/17 21:00 08/17/17 20:49 Zestril PO 5 mg BID [facility] Administration Metformin HCl 500 mg 08/16/17 19:00 08/17/17 16:40 Glucophage PO 500 mg BID-W/MEALS [facility] Administration Metoprolol Tartrate 25 mg 08/17/17 21:00 08/17/17 20:49 Lopressor PO 25 mg BID [facility] Administration Miscellaneous Information 0 each 08/18/17 11:00 Vancomycin Trough Due MISCELLANE 08/18/17 11:01 DIRECTED ONE Miscellaneous Information 1 each 08/17/17 12:03 Potassium Per Protocol MISCELLANE DAILY PRN Per Protocol Protocol Multivitamins 1 each 08/18/17 12:00 Theragran PO DAILY@1200 [facility] Naloxone HCl 0.2 mg 08/16/17 18:24 Narcan IV Q2M PRN Opioid Reversal Nitroglycerin 0.4 mg 08/17/17 12:04 Nitrostat SUBLINGUAL Q5M PRN Chest Pain Oxycodone/Acetaminophen 1 each 08/17/17 12:04 08/18/17 06:22 Percocet 10-325 PO 1 each Q8H PRN Administration Pain Control Pantoprazole Sodium 40 mg 08/17/17 07:30 08/17/17 08:36 Protonix PO 40 mg [id number] [facility] Administration Thiamine HCl 100 mg 08/16/17 21:00 08/17/17 22:01 Vitamin B-1 PO 100 mg BID [facility] Administration Intake and Output 08/17/17 08/18/17 08/18/17 22:59 06:59 14:59 Intake Total 310 0 Output Total 600 Balance 310 -600 0 Intake: Blood Product 310 0 Rc As-1 Unit 310 [id number] Rc As-1 Unit 0 [id number] Output: Urine 600 Other: Voiding Method Urinal Urinal Urinal # Voids 1 1 Weight 67.5 kg 69 kg 08/18/17 05:15 08/18/17 05:15 Assessment and Plan Assessment: #1, left heel wound, nonhealing with exposed calcaneus bone and necrotic tissue and suspected osteomyelitis #2 coronary artery disease, stent placement to the LAD May 2017 #3 ischemic cardiomyopathy with an ejection fraction of 20-25% #4 moderate aortic stenosis #5 diabetes mellitus #6 hypertension #7 chronic alcohol abuse #8 sepsis secondary to left heel wound and suspected osteomyelitis Plan: From cardiology perspective, patient is an acceptable risk candidate to undergo proposed surgery. Continue all cardiac medications perioperatively. We'll continue to follow the patient provide further recommendations accordingly. FORENSIC MATERIALS ENGINEER note has been reviewed, I agree with a documented findings and plan of care. Patient was seen and examined.
[2017-08-18] MEDS ORDERED: IV FLUID CONTINUATION 1,000 ML IV ONE ×3 (09:04→09:24)
[2017-08-18] MEDS ORDERED: VANCOMYCIN TROUGH DUE 1 EACH MISC MISCELLANE ONE (11:00)
--- NOTE | 2017-08-18 11:42 | OP ---
OPERATIVE REPORT SURGEON: Cordell Grace MD PREOPERATIVE DIAGNOSIS: Gangrene of the left foot with some gas forming organism and exposed left calcaneus. PREOPERATIVE DIAGNOSIS: OPERATION: Left above-knee amputation. ESTIMATED BLOOD LOSS: SPECIMEN TAKEN: DESCRIPTION OF THE PROCEDURE: This patient was brought to the operating room. Under general anesthesia, left leg was prepped and draped in usual sterile manner. An incision was made above the patella on the anterior flap, deepened through skin, fat, and fascia and then the posterior flap incision was made which was also deepened through skin, fat, and fascia. After that, we divided the anterior compartment muscles until we reached the femur and then the medial compartment muscles were divided until we found the femoral artery and femoral vein which were isolated and divided and tied separately with 2-0 Prolene. Then the lateral compartment muscles were divided and bleeding points were suture ligated then the posterior flap was completed and posterior compartment muscles were divided. At this point, we found the sciatic nerve which was divided by traction and tied with 0 Prolene. After that, we use the periosteum elevator and elevated the from the femur and using Gigli saw we divided the femur and the specimen was removed. We checked for hemostasis. There was good hemostasis. The wound was irrigated with hydrogen peroxide and saline and anterior and posterior compartment muscles were approximated around the femur using 0 Vicryl and then we used 0 Vicryl to close the fascia with interrupted suture and skin was closed with 3-0 nylon with mattress interrupted suture. Dressing applied. Patient tolerated the procedure well and was transferred to recovery room in satisfactory condition. MMODL / IJN: [id number] /
[2017-08-18 12:02] LABS: Glucose,Whole Blood 116 mg/dL (75-99)
[2017-08-18 12:51] LABS: Glucose,Whole Blood 137 mg/dL (75-99)
[2017-08-18] MEDS: PANTOPRAZOLE 40 MG TABLET PO SCH (14:16)
[2017-08-18] MEDS: metFORMIN 500 MG TAB PO SCH ×2 (14:16→18:27)
[2017-08-18] MEDS: PIPERACILLIN-TAZOBACTAM 3.375 GM in DEXTROSE/WATER 1 50ML.BAG IVPB SCH ×2 (14:16→18:34)
[2017-08-18] MEDS: COLLAGENASE 250 UNIT/GM OINTMENT 30 GM TUBE TOPICAL SCH (14:17)
[2017-08-18] MEDS: THIAMINE 100 MG TAB PO SCH ×2 (14:20→19:39)
[2017-08-18] MEDS: FUROSEMIDE 20 MG TAB PO SCH (14:20)
[2017-08-18] MEDS: LISINOPRIL 5 MG TAB PO SCH ×2 (14:20→19:39)
[2017-08-18] MEDS: CLOPIDOGREL 75 MG TAB PO SCH (14:20)
[2017-08-18] MEDS: METOPROLOL TARTRATE 25 MG TAB PO SCH ×2 (14:20→19:39)
[2017-08-18] MEDS: MULTIVITAMINS, THERA 1 EACH TAB PO SCH (14:20)
[2017-08-18] MEDS: VANCOMYCIN 1,500 MG in SODIUM CHLORIDE 0.9% 250 ML IVPB SCH ×2 (14:56→23:39)
[2017-08-18] MEDS: HYDROmorphone 0.5 MG/0.5 ML SYRINGE IVP PRN ×3 (14:56→23:10)
--- NOTE | 2017-08-18 16:15 | P.PN ---
Subjective Progress Note Date: 08/18/17 Principal diagnosis: Gangrene left foot This is a 76-year-old male patient who is a long-standing history of a nonhealing wound to the left heel. He was at [facility] and receiving wound care from Dr. Garcia but went home about one month ago. He has been following in the wound healing center with Dr. Garcia and his most recent visit was on August 16 and there was significant worsening of his wound and he was sent to be clear in [facility] in [facility] emergency center for evaluation. Information from the nursing staff is that patient has been noncompliant with home care and is actually canceled bone care and has refused to have his dressing changed at home. Patient presented with a white count of 17.8, hemoglobin 6.7, lactic acid was 1.7. Troponin 1.3. Patient was started on vancomycin and Zosyn and admitted to the selective care unit. He has been seen in consultation by Dr. Grace with plan for amputation as patient has bone exposed with necrotic tissue. Wound culture is showing rare polys or for nuclear leukocytes, many gram-negative bacilli, few gram-positive cocci with multiple morphologies present. Sed rate is 114, CRP 155. Recent pre-albumin done in July is less than 5, hemoglobin A1c 6.1. Patient is noted to have a very foul odor coming from his left heel as well as significant neuropathy to the bilateral feet. Patient now status post a left [id number] amputation. He is postoperative. Some ongoing effects of anesthesia. Objective - Vital Signs Vital signs: Vital Signs Temp 97.3 F L 08/18/17 11:31 Pulse 91 08/18/17 12:55 Resp 16 08/18/17 12:55 BP 171/82 08/18/17 12:55 Pulse Ox 96 08/18/17 12:55 Intake & Output 08/17/17 08/18/17 08/18/17 18:59 06:59 18:59 Intake Total 1130 310 810 Output Total 700 600 300 Balance 430 -290 510 Weight 67.5 kg 69 kg Intake: IV 50 400 Piperacillin-Tazobactam 3 50 .375 gm In Dextrose/Water 1 50ml.bag @ 12.5 mls/hr IVPB Q8H [facility] Rx#: [id number] Intake, IV Titration 410 Amount Sodium Chloride 0.9% 1, 160 000 ml @ 80 mls/hr IV . [id number] [facility] Rx#:[id number] Vancomycin 1,500 mg In 250 Sodium Chloride 0.9% 250 ml @ 125 mls/hr IVPB Q12H [facility] Rx#:[id number] Oral 670 100 Blood Product 0 310 310 Rc As-1 Unit 0 310 [id number] Rc As-1 Unit 310 [id number] Output: Urine 700 600 250 Estimated Blood Loss 50 Other: Voiding Method Urinal Urinal Urinal # Voids 1 - Exam Gen: This is a 76-year-old male. Supine and comfortable after surgery HEENT: Head is atraumatic, normocephalic. Pupils equal, round. Sclerae is anicteric. NECK: Supple. No JVD. No lymphadenopathy. No thyromegaly. LUNGS: Clear to auscultation. No wheezes or rhonchi. No intercostal retractions. HEART: Regular rate and rhythm. Systolic murmur. ABDOMEN: Soft. Bowel sounds are present. No masses. No tenderness. EXTREMITIES: Right lower extremity has chronic changes. Left leg is evidence of the bulky dressing in place from the [id number] amputation. NEUROLOGICAL: Patient is awake, alert - Labs CBC & Chem 7: 08/18/17 05:15 08/18/17 05:15 Labs: Abnormal Lab Results - Last 24 Hours (Table) 08/16/17 08/17/17 08/17/17 Range/Units 15:35 16:28 20:57 WBC (3.8-10.6) k/uL RBC (4.30-5.90) m/uL Hgb (13.0-17.5) gm/dL Hct (39.0-53.0) % RDW (11.5-15.5) % Neutrophils # (1.3-7.7) k/uL Lymphocytes # (1.0-4.8) k/uL Sodium (137-145) mmol/L Creatinine (0.66-1.25) mg/dL Glucose (74-99) mg/dL POC Glucose (mg/dL) 148 H 122 H (75-99) mg/dL Crossmatch See Detail 08/17/17 08/18/17 08/18/17 Range/Units 21:10 05:15 05:15 WBC 14.1 H 12.6 H (3.8-10.6) k/uL RBC 2.91 L 2.87 L (4.30-5.90) m/uL Hgb 7.8 L 7.8 L (13.0-17.5) gm/dL Hct 25.1 L 24.5 L (39.0-53.0) % RDW 15.8 H (11.5-15.5) % Neutrophils # 10.9 H (1.3-7.7) k/uL Lymphocytes # 0.7 L (1.0-4.8) k/uL Sodium 133 L (137-145) mmol/L Creatinine 0.60 L (0.66-1.25) mg/dL Glucose 104 H (74-99) mg/dL POC Glucose (mg/dL) (75-99) mg/dL Crossmatch 08/18/17 08/18/17 08/18/17 Range/Units 06:10 11:53 12:47 WBC (3.8-10.6) k/uL RBC (4.30-5.90) m/uL Hgb (13.0-17.5) gm/dL Hct (39.0-53.0) % RDW (11.5-15.5) % Neutrophils # (1.3-7.7) k/uL Lymphocytes # (1.0-4.8) k/uL Sodium (137-145) mmol/L Creatinine (0.66-1.25) mg/dL Glucose (74-99) mg/dL POC Glucose (mg/dL) 118 H 116 H 137 H (75-99) mg/dL Crossmatch Microbiology - Last 24 Hours (Table) 08/16/17 15:35 Blood Culture - Preliminary Blood No Growth after 24 hours 08/16/17 17:00 Gram Stain - Preliminary Foot - Left Wound Culture - Preliminary Gram Neg Bacilli Group D Enterococcus Laboratory Results WBC 12.6 k/uL (3.8-10.6) H 08/18/17 05:15 RBC 2.87 m/uL (4.30-5.90) L 08/18/17 05:15 Hgb 7.8 gm/dL (13.0-17.5) L 08/18/17 05:15 Hct 24.5 % (39.0-53.0) L 08/18/17 05:15 MCV 85.4 fL (80.0-100.0) 08/18/17 05:15 MCH 27.3 pg (25.0-35.0) 08/18/17 05:15 MCHC 32.0 g/dL (31.0-37.0) 08/18/17 05:15 RDW 15.5 % (11.5-15.5) 08/18/17 05:15 Plt Count 282 k/uL (150-450) 08/18/17 05:15 Neutrophils % 87 % 08/18/17 05:15 Lymphocytes % 6 % 08/18/17 05:15 Monocytes % 5 % 08/18/17 05:15 Eosinophils % 0 % 08/18/17 05:15 Basophils % 0 % 08/18/17 05:15 Neutrophils # 10.9 k/uL (1.3-7.7) H 08/18/17 05:15 Lymphocytes # 0.7 k/uL (1.0-4.8) L 08/18/17 05:15 Monocytes # 0.6 k/uL (0-1.0) 08/18/17 05:15 Eosinophils # 0.1 k/uL (0-0.7) 08/18/17 05:15 Basophils # 0.0 k/uL (0-0.2) 08/18/17 05:15 Manual Slide Review Performed 08/16/17 15:35 Polychromasia Present 08/16/17 15:35 Hypochromasia Moderate 08/18/17 05:15 Poikilocytosis Slight 08/18/17 05:15 Poikilocytosis (manual Present 08/16/17 15:35 Ovalocytes Present 08/16/17 15:35 ESR 114 mm/hr (0-15) H 08/16/17 15:35 PT 11.2 sec (9.0-12.0) 08/16/17 15:35 INR 1.2 (<1.2) H 08/16/17 15:35 APTT 27.6 sec (22.0-30.0) 08/16/17 15:35 Sodium 133 mmol/L (137-145) L 08/18/17 05:15 Potassium 3.7 mmol/L (3.5-5.1) 08/18/17 05:15 Chloride 99 mmol/L (98-107) 08/18/17 05:15 Carbon Dioxide 25 mmol/L (22-30) 08/18/17 05:15 Anion Gap 9 mmol/L 08/18/17 05:15 BUN 11 mg/dL (9-20) 08/18/17 05:15 Creatinine 0.60 mg/dL (0.66-1.25) L 08/18/17 05:15 Est GFR (MDRD) Af Amer >60 (>60 ml/min/1.73 sqM) 08/18/17 05:15 Est GFR (MDRD) Non-Af >60 (>60 ml/min/1.73 sqM) 08/18/17 05:15 Glucose 104 mg/dL (74-99) H 08/18/17 05:15 POC Glucose (mg/dL) 137 mg/dL (75-99) H 08/18/17 12:47 POC Glu Childcare Administrator ID Omayra Bowen 08/18/17 12:47 Plasma Lactic Acid Ramirez 1.7 mmol/L (0.7-2.0) 08/16/17 15:35 Calcium 8.7 mg/dL (8.4-10.2) 08/18/17 05:15 Total Bilirubin 0.8 mg/dL (0.2-1.3) 08/16/17 15:35 AST 14 U/L (17-59) L 08/16/17 15:35 ALT 21 U/L (21-72) 08/16/17 15:35 Alkaline Phosphatase 141 U/L (38-126) H 08/16/17 15:35 C-Reactive Protein 155.0 mg/L (<10.0) H 08/16/17 15:35 Total Protein 6.0 g/dL (6.3-8.2) L 08/16/17 15:35 Albumin 3.0 g/dL (3.5-5.0) L 08/16/17 15:35 Urine Color Yellow 08/17/17 17:20 Urine Appearance Clear (Clear) 08/17/17 17:20 Urine pH 5.5 (5.0-8.0) 08/17/17 17:20 Ur Specific [place] 1.012 (1.001-1.035) 08/17/17 17:20 Urine Protein Negative (Negative) 08/17/17 17:20 Urine Glucose (UA) Negative (Negative) 08/17/17 17:20 Urine Ketones Negative (Negative) 08/17/17 17:20 Urine Blood Negative (Negative) 08/17/17 17:20 Urine Nitrite Negative (Negative) 08/17/17 17:20 Urine Bilirubin Negative (Negative) 08/17/17 17:20 Urine Urobilinogen <2.0 mg/dL (<2.0) 08/17/17 17:20 Ur Leukocyte Esterase Negative (Negative) 08/17/17 17:20 Stool Occult Blood Negative (Negative) 08/16/17 17:50 Vancomycin Trough 16.6 ug/mL 08/18/17 14:31 Blood Type O Positive 08/16/17 15:35 Blood Type Recheck No 08/16/17 15:35 Antibody Screen NEGATIVE 08/16/17 15:35 Crossmatch See Detail 08/16/17 15:35 Spec Expiration Date 08/19/2017233108/16/17 15:35 Microbiology 08/16/17 15:35 Blood Blood Culture - Preliminary No Growth after 24 hours 08/16/17 17:00 Foot - Left Gram Stain - Preliminary 08/16/17 17:00 Foot - Left Wound Culture - Preliminary Gram Neg Bacilli Group D Enterococcus Assessment and Plan (1) Diabetic foot ulcer associated with type 2 diabetes mellitus Current Visit: Yes Status: Acute Priority: High Code(s): E11.621 - TYPE 2 DIABETES MELLITUS WITH FOOT ULCER SNOMED Code(s): 054267534 (2) Gangrene of left foot Narrative/Plan: As noted the patient has a long-standing history of ulceration to the left foot. Despite this he is now had a marked worsening with exposure of a large amount of the calcaneus, associated with gangrenous changes and radiological evidence of gas in the tissue. The patient is evaluated by vascular surgery and the case has been discussed at length with vascular surgery and the primary care service. Because of the gangrene the patient has not been taking the operating room and the above the knee amputation is performed performed. The patient's family is present in their questions are answered at this point in time to the best ability. Continue antimicrobial therapy for now to ensure that any lymphatic spread of bacteria is well treated in attempts to ensure that the residual limb flap is most viable. Current Visit: Yes Status: Acute Code(s): I96 - GANGRENE, NOT ELSEWHERE CLASSIFIED SNOMED Code(s): 10170925537937310 (3) Leukocytosis Current Visit: Yes Status: Acute Code(s): D72.829 - ELEVATED WHITE BLOOD CELL COUNT, UNSPECIFIED SNOMED Code(s): 553211963
[2017-08-18] MEDS: SODIUM CHLORIDE 0.9% 1,000 ML IV SCH ×2 (16:37→23:40)
[2017-08-18 17:12] LABS: Glucose,Whole Blood 133 mg/dL (75-99)
[2017-08-18] MEDS: DULoxetine HCL 60 MG CAPSULE.DR PO SCH (18:27)
[2017-08-18] MEDS: ASPIRIN 81 MG PO SCH (18:27)
[2017-08-18] MEDS: ATORVASTATIN 80 MG TAB PO SCH (19:39)
[2017-08-18 20:11] LABS: Glucose,Whole Blood 112 mg/dL (75-99)
[2017-08-19] MEDS: HYDROmorphone 0.5 MG/0.5 ML SYRINGE IVP PRN ×3 (01:51→23:29)
[2017-08-19] MEDS: PIPERACILLIN-TAZOBACTAM 3.375 GM in DEXTROSE/WATER 1 50ML.BAG IVPB SCH ×3 (01:55→18:02)
[2017-08-19] MEDS: oxyCODONE-APAP 10-325MG 1 EACH TAB PO PRN ×2 (02:56→17:45)
[2017-08-19 05:53] LABS: Glucose,Whole Blood 113 mg/dL (75-99)
[2017-08-19 06:30] LABS: HCT 28.2 % (39.0-53.0); Hypochromasia Moderate; MCH 27.6 pg (25.0-35.0); MCHC 31.7 g/dL (31.0-37.0); MCV 87.1 fL (80.0-100.0); Mean Platelet Volume 7.3; Platelet Count 279 k/uL (150-450); Poikilocytosis Slight; RBC 3.24 m/uL (4.30-5.90); RDW 14.8 % (11.5-15.5); WBC 8.8 k/uL (3.8-10.6)
[2017-08-19 06:41] LABS: Anion Gap 10 mmol/L; Blood Urea Nitrogen 9 mg/dL (9-20); Calcium 8.6 mg/dL (8.4-10.2); Carbon Dioxide 27 mmol/L (22-30); Chloride 99 mmol/L (98-107); Glucose 102 mg/dL (74-99); Potassium 3.4 mmol/L (3.5-5.1); Sodium 136 mmol/L (137-145)
[2017-08-19] MEDS: INSULIN ASPART 100 UNIT/ML 1 ML 10 ML VIAL SQ SCH ×4 (08:39→21:08)
[2017-08-19] MEDS: COLLAGENASE 250 UNIT/GM OINTMENT 30 GM TUBE TOPICAL SCH (08:40)
[2017-08-19] MEDS: metFORMIN 500 MG TAB PO SCH ×2 (08:50→16:55)
[2017-08-19] MEDS: MULTIVITAMINS, THERA 1 EACH TAB PO SCH (08:50)
[2017-08-19] MEDS: THIAMINE 100 MG TAB PO SCH ×2 (08:50→21:07)
[2017-08-19] MEDS: PANTOPRAZOLE 40 MG TABLET PO SCH (08:50)
[2017-08-19] MEDS: LISINOPRIL 5 MG TAB PO SCH ×2 (08:50→21:07)
[2017-08-19] MEDS: METOPROLOL TARTRATE 25 MG TAB PO SCH ×2 (08:50→21:13)
[2017-08-19] MEDS: CLOPIDOGREL 75 MG TAB PO SCH (08:50)
[2017-08-19] MEDS: FUROSEMIDE 20 MG TAB PO SCH (08:52)
[2017-08-19] MEDS: SODIUM CHLORIDE 0.9% 1,000 ML IV SCH ×2 (08:56→23:20)
[2017-08-19 09:02] LABS: Lymphocytes # (M) 0.79 k/uL (1.0-4.8); Monocytes # (M) 0.44 k/uL (0-1.0); Neutrophils # (M) 7.57 k/uL (1.3-7.7); Neutrophils % (M) 86 %; Nucleated Red Blood Cells 0 /100 WBC (0-0); Total Cells Counted 100
[2017-08-19 09:07] LABS: RBC Fragments Present
[2017-08-19 09:09] LABS: Crenated RBC Present
[2017-08-19 11:49] LABS: Glucose,Whole Blood 125 mg/dL (75-99)
--- NOTE | 2017-08-19 15:07 | PN ---
PROGRESS NOTE Mr. Borjas is a 76-year-old male who presented with a gangrenous foot, underwent amputation yesterday. He is feeling well this morning. His breathing is stable. He denies any chest pain. He denies any dizziness or palpitation. He underwent left above knee amputation. He continues to be at this time on aspirin once a day, Lipitor 80 mg daily, Plavix 75 mg daily, furosemide 20 mg daily, insulin, lisinopril 5 mg twice a day, metoprolol tartrate 25 mg twice a day. Metformin. PHYSICAL EXAMINATION: Blood pressure running in the 140s with a heart rate in the 70s. LUNGS: Clear. HEART: Regular rate and rhythm S1, S2. No S3 with systolic murmur. No diastolic murmur. ABDOMEN: Soft, nontender. Extremities: Right lower extremity with no edema. LAB DATA: BUN and creatinine 19 and 0.6, potassium 3.4, hemoglobin of 9. IMPRESSION: 1. Status post left above knee amputation for gangrene. 2. History of coronary disease status post percutaneous revascularization. 3. Prior history of cardiomyopathy. 4. Hypertension. 5. Hyperlipidemia. 6. Diabetes mellitus. RECOMMENDATION: We will follow his blood pressure and make further adjustment of his antihypertensive regimen depending on the trend. In the meantime, we will continue the rest of his medical regimen. MMODL / IJN: [id number] /
[2017-08-19] MEDS: VANCOMYCIN 1,500 MG in SODIUM CHLORIDE 0.9% 250 ML IVPB SCH ×2 (15:49→23:23)
[2017-08-19 16:19] LABS: Glucose,Whole Blood 161 mg/dL (75-99)
[2017-08-19] MEDS: DULoxetine HCL 60 MG CAPSULE.DR PO SCH (16:54)
[2017-08-19] MEDS: ASPIRIN 81 MG PO SCH (16:55)
[2017-08-19 20:40] LABS: Glucose,Whole Blood 131 mg/dL (75-99)
[2017-08-19] MEDS: ATORVASTATIN 80 MG TAB PO SCH (21:07)
--- NOTE | 2017-08-19 21:20 | P.PN ---
Subjective Progress Note Date: 08/18/17 Principal diagnosis: Left heel gangrenous ulcer 68-year-old gentleman with history of diabetes mellitus, CAD, recent stent placement to the LAD in May 2017, ischemic cardiomyopathy with a known ejection fraction of 20-25%, chronic left heel ulcer and known moderate AF. He was sent to the emergency department by Dr. Garcia from the wound center due to nonhealing left heel wound that was malodorous. In the emergency room, an x-ray of the left foot was completed which was negative for acute osseous lesion, but did show evidence of soft tissue air suggesting infection and generalized osteopenia likely on the basis of osteoporosis. Patient was seen by vascular surgery and also cleared by cardiology. Patient underwent left above knee amputation on 08/18/2017. Patient is being continued on antibiotics in the form of vancomycin and Zosyn. Currently patient is complaining of soreness/pain at the surgical site. Otherwise no fever no chills. Wound culture shows Pseudomonas and Enterococcus faecalis. No comments of chest pain or shortness of breath. No nausea vomiting or abdominal pain. All other review of systems negative except above. Current medications reviewed. Objective - Vital Signs Vital signs: Vital Signs Temp 97.3 F L 08/18/17 11:31 Pulse 91 08/18/17 12:55 Resp 16 08/18/17 12:55 BP 171/82 08/18/17 12:55 Pulse Ox 96 08/18/17 12:55 Intake & Output 08/17/17 08/18/17 08/18/17 18:59 06:59 18:59 Intake Total 1130 310 810 Output Total 700 600 300 Balance 430 -290 510 Weight 67.5 kg 69 kg Intake: IV 50 400 Piperacillin-Tazobactam 3 50 .375 gm In Dextrose/Water 1 50ml.bag @ 12.5 mls/hr IVPB Q8H [facility] Rx#: [id number] Intake, IV Titration 410 Amount Sodium Chloride 0.9% 1, 160 000 ml @ 80 mls/hr IV . [id number] [facility] Rx#:[id number] Vancomycin 1,500 mg In 250 Sodium Chloride 0.9% 250 ml @ 125 mls/hr IVPB Q12H [facility] Rx#:[id number] Oral 670 100 Blood Product 0 310 310 Rc As-1 Unit 0 310 [id number] Rc As-1 Unit 310 [id number] Output: Urine 700 600 250 Estimated Blood Loss 50 Other: Voiding Method Urinal Urinal Urinal # Voids 1 - Exam PHYSICAL EXAMINATION: Patient is lying in the bed comfortably, no acute distress, awake alert and oriented.. Patient is a little drowsy. HEENT: Normocephalic. Neck is supple. Pupils reactive. Nostrils clear. Oral cavity is moist. Ears reveal no drainage. Neck reveals no JVD, carotid bruits, or thyromegaly. CHEST EXAMINATION: Trachea is central. Symmetrical expansion. Lung gomez clear to auscultation and percussion. CARDIAC: Normal S1, S2 with no gallops. No murmurs ABDOMEN: Soft. Bowel sounds normal. No organomegaly. No abdominal bruits. Extremities: reveal no edema. No clubbing or cyanosis. Left above-knee amputation. Surgical site bandaged Neurologically awake, alert, oriented x3 with well-coordinated movements. No focal deficits noted Skin: No rash or skin lesions. Psychiatric: Coperative. Nonsuicidal Musculoskeletal: No joint swelling or deformity. Normal range of motion. - Labs CBC & Chem 7: 08/19/17 05:27 08/19/17 05:27 Labs: Abnormal Lab Results - Last 24 Hours (Table) 08/16/17 08/17/17 08/17/17 Range/Units 15:35 16:28 20:57 WBC (3.8-10.6) k/uL RBC (4.30-5.90) m/uL Hgb (13.0-17.5) gm/dL Hct (39.0-53.0) % RDW (11.5-15.5) % Neutrophils # (1.3-7.7) k/uL Lymphocytes # (1.0-4.8) k/uL Sodium (137-145) mmol/L Creatinine (0.66-1.25) mg/dL Glucose (74-99) mg/dL POC Glucose (mg/dL) 148 H 122 H (75-99) mg/dL Crossmatch See Detail 08/17/17 08/18/17 08/18/17 Range/Units 21:10 05:15 05:15 WBC 14.1 H 12.6 H (3.8-10.6) k/uL RBC 2.91 L 2.87 L (4.30-5.90) m/uL Hgb 7.8 L 7.8 L (13.0-17.5) gm/dL Hct 25.1 L 24.5 L (39.0-53.0) % RDW 15.8 H (11.5-15.5) % Neutrophils # 10.9 H (1.3-7.7) k/uL Lymphocytes # 0.7 L (1.0-4.8) k/uL Sodium 133 L (137-145) mmol/L Creatinine 0.60 L (0.66-1.25) mg/dL Glucose 104 H (74-99) mg/dL POC Glucose (mg/dL) (75-99) mg/dL Crossmatch 08/18/17 08/18/17 08/18/17 Range/Units 06:10 11:53 12:47 WBC (3.8-10.6) k/uL RBC (4.30-5.90) m/uL Hgb (13.0-17.5) gm/dL Hct (39.0-53.0) % RDW (11.5-15.5) % Neutrophils # (1.3-7.7) k/uL Lymphocytes # (1.0-4.8) k/uL Sodium (137-145) mmol/L Creatinine (0.66-1.25) mg/dL Glucose (74-99) mg/dL POC Glucose (mg/dL) 118 H 116 H 137 H (75-99) mg/dL Crossmatch Microbiology - Last 24 Hours (Table) 08/16/17 15:35 Blood Culture - Preliminary Blood No Growth after 24 hours 08/16/17 17:00 Gram Stain - Preliminary Foot - Left Wound Culture - Preliminary Gram Neg Bacilli Group D Enterococcus Assessment and Plan Assessment: 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 , suspect osteomyelitis. Failed outpatient therapy. Status post left above knee amputation Normocytic normochromic anemia, hgb 6.7 on admission, previous hgb 9.4, stool for occult blood negative, no evidence of acute blood loss Recent fall from standing at home with subsequent left lower chest wall tenderness, x-ray negative for rib fracture, likely rib contusion Sepsis secondary to left heel ulcer and suspected osteomyelitis. Patient was febrile and had leukocytosis on admission Coronary artery disease with previous stent placement to LAD x 2 Chronic systolic congestive heart failure, most recent echocardiogram reveals ejection fraction of 25-30% Chronic alcohol use, patient drinks minimum of 3 beers a day Diabetes mellitus, type II, hemoglobin A1c 5.8 Essential hypertension Moderate to severe aortic stenosis Osteoarthritis Hypokalemia PLAN: Patient is status post left above-knee amputation. Vascular surgery and ID is following. Continue the antibiotics in the form of vancomycin and Zosyn. Wound cultures is growing Pseudomonas and Enterococcus faecalis. We will continue with insulin dosing and pain management. GI and DVT prophylaxis. Monitor H&H and follow closely. Further recommendations based on the clinical course. Time with Patient: Greater than 30
--- NOTE | 2017-08-19 21:23 | P.PN ---
Subjective Progress Note Date: 08/19/17 Principal diagnosis: Left heel gangrenous ulcer 68-year-old gentleman with history of diabetes mellitus, CAD, recent stent placement to the LAD in May 2017, ischemic cardiomyopathy with a known ejection fraction of 20-25%, chronic left heel ulcer and known moderate AF. He was sent to the emergency department by Dr. Garcia from the wound center due to nonhealing left heel wound that was malodorous. In the emergency room, an x-ray of the left foot was completed which was negative for acute osseous lesion, but did show evidence of soft tissue air suggesting infection and generalized osteopenia likely on the basis of osteoporosis. Patient was seen by vascular surgery and also cleared by cardiology. Patient underwent left above knee amputation on 08/18/2017. Patient is being continued on antibiotics in the form of vancomycin and Zosyn. Currently patient is complaining of soreness/pain at the surgical site. Otherwise no fever no chills. Wound culture shows Pseudomonas and Enterococcus faecalis. No comments of chest pain or shortness of breath. No nausea vomiting or abdominal pain. On 08/19/2017 Patient had worsening left a bony outpatient stump pain this morning which is improved with pain medications now. Otherwise patient denied any chest pain or shortness of breath. No fever no chills. Patient is being continued on antibiotics. Anticipate discharged to rehab in next 24 to 48 hours. All other review of systems negative except above. Current medications reviewed. Objective - Vital Signs Vital signs: Vital Signs Temp 98.3 F 08/19/17 16:00 Pulse 95 08/19/17 16:00 Resp 20 08/19/17 16:00 BP 178/85 08/19/17 16:00 Pulse Ox 95 08/19/17 16:00 Intake & Output 08/19/17 08/19/17 08/20/17 06:59 18:59 06:59 Intake Total 720 320 Output Total 850 1250 Balance -130 -930 Weight 68.7 kg Intake: IV 50 Piperacillin-Tazobactam 3 50 .375 gm In Dextrose/Water 1 50ml.bag @ 12.5 mls/hr IVPB Q8H [facility] Rx#: [id number] Intake, IV Titration 670 Amount Piperacillin-Tazobactam 3 100 .375 gm In Dextrose/Water 1 50ml.bag @ 12.5 mls/hr IVPB Q8H [facility] Rx#: [id number] Sodium Chloride 0.9% 1, 320 000 ml @ 80 mls/hr IV . [id number] [facility] Rx#:[id number] Vancomycin 1,500 mg In 250 Sodium Chloride 0.9% 250 ml @ 125 mls/hr IVPB Q12H [facility] Rx#:[id number] Oral 320 Output: Urine 850 1250 Other: Voiding Method Indwelling Catheter Indwelling Catheter - Labs CBC & Chem 7: 08/19/17 05:27 08/19/17 05:27 Labs: Abnormal Lab Results - Last 24 Hours (Table) 08/19/17 08/19/17 08/19/17 Range/Units 05:27 05:27 05:50 RBC 3.24 L (4.30-5.90) m/uL Hgb 9.0 L (13.0-17.5) gm/dL Hct 28.2 L (39.0-53.0) % Lymphocytes # (Manual) 0.79 L (1.0-4.8) k/uL Sodium 136 L (137-145) mmol/L Potassium 3.4 L (3.5-5.1) mmol/L Creatinine 0.60 L (0.66-1.25) mg/dL Glucose 102 H (74-99) mg/dL POC Glucose (mg/dL) 113 H (75-99) mg/dL 08/19/17 08/19/17 08/19/17 Range/Units 11:44 16:17 20:39 RBC (4.30-5.90) m/uL Hgb (13.0-17.5) gm/dL Hct (39.0-53.0) % Lymphocytes # (Manual) (1.0-4.8) k/uL Sodium (137-145) mmol/L Potassium (3.5-5.1) mmol/L Creatinine (0.66-1.25) mg/dL Glucose (74-99) mg/dL POC Glucose (mg/dL) 125 H 161 H 131 H (75-99) mg/dL Microbiology - Last 24 Hours (Table) 08/16/17 15:35 Blood Culture - Preliminary Blood No Growth after 72 hours 08/16/17 17:00 Gram Stain - Final Foot - Left Wound Culture - Final Pseudomonas aeruginosa Enterococcus faecalis Assessment and Plan Assessment: Chronic left heel diabetic gangrenous ulcer with exposed calcaneus bone and necrotic tissue, suspect osteomyelitis. Failed outpatient therapy. Status post left above knee amputation on 08/18/2017 Normocytic normochromic anemia, hgb 6.7 on admission, previous hgb 9.4, stool for occult blood negative, no evidence of acute blood loss Recent fall from standing at home with subsequent left lower chest wall tenderness, x-ray negative for rib fracture, likely rib contusion Sepsis secondary to left heel ulcer and suspected osteomyelitis. Patient was febrile and had leukocytosis on admission Coronary artery disease with previous stent placement to LAD x 2 Chronic systolic congestive heart failure, most recent echocardiogram reveals ejection fraction of 25-30% Chronic alcohol use, patient drinks minimum of 3 beers a day Diabetes mellitus, type II, hemoglobin A1c 5.8 Essential hypertension Moderate to severe aortic stenosis Osteoarthritis Hypokalemia PLAN: Patient is status post left above-knee amputation. Vascular surgery and ID is following. Continue the antibiotics in the form of vancomycin and Zosyn. Wound cultures is growing Pseudomonas and Enterococcus faecalis. We will continue with insulin dosing and pain management. Continue with dressing changes. GI and DVT prophylaxis. Monitor H&H and follow closely. Further recommendations based on the clinical course. PT OT and possible discharge to rehab in next couple of days. Time with Patient: Greater than 30
[2017-08-20] MEDS: PIPERACILLIN-TAZOBACTAM 3.375 GM in DEXTROSE/WATER 1 50ML.BAG IVPB SCH ×4 (03:47→23:34)
[2017-08-20] MEDS: oxyCODONE-APAP 10-325MG 1 EACH TAB PO PRN ×3 (03:48→20:24)
[2017-08-20 06:34] LABS: Glucose,Whole Blood 117 mg/dL (75-99)
[2017-08-20 06:59] LABS: Basophils % (A) 0 %; Eosinophils # (A) 0.1 k/uL (0-0.7); Eosinophils % (A) 1 %; HCT 30.8 % (39.0-53.0); HGB 9.4 gm/dL (13.0-17.5); Hypochromasia Moderate; Lymphocytes # (A) 0.6 k/uL (1.0-4.8); Lymphocytes % (A) 8 %; MCH 26.3 pg (25.0-35.0); MCHC 30.5 g/dL (31.0-37.0); MCV 86.1 fL (80.0-100.0); Mean Platelet Volume 7.8; Monocytes # (A) 0.6 k/uL (0-1.0); Monocytes % (A) 7 %; Neutrophils # (A) 6.7 k/uL (1.3-7.7); Neutrophils % (A) 81 %; Platelet Count 298 k/uL (150-450); RBC 3.58 m/uL (4.30-5.90); RDW 15.9 % (11.5-15.5); WBC 8.3 k/uL (3.8-10.6)
[2017-08-20] MEDS: INSULIN ASPART 100 UNIT/ML 1 ML 10 ML VIAL SQ SCH ×4 (07:12→20:18)
[2017-08-20] MEDS: PANTOPRAZOLE 40 MG TABLET PO SCH (07:14)
[2017-08-20] MEDS: metFORMIN 500 MG TAB PO SCH ×2 (07:16→16:06)
[2017-08-20 07:40] LABS: Anion Gap 13 mmol/L; Blood Urea Nitrogen 11 mg/dL (9-20); Calcium 8.7 mg/dL (8.4-10.2); Carbon Dioxide 26 mmol/L (22-30); Chloride 101 mmol/L (98-107); Glucose 117 mg/dL (74-99); Potassium 3.1 mmol/L (3.5-5.1); Sodium 140 mmol/L (137-145)
[2017-08-20] MEDS: COLLAGENASE 250 UNIT/GM OINTMENT 30 GM TUBE TOPICAL SCH (08:08)
[2017-08-20] MEDS: THIAMINE 100 MG TAB PO SCH ×2 (08:10→20:25)
[2017-08-20] MEDS: METOPROLOL TARTRATE 25 MG TAB PO SCH ×2 (08:10→20:25)
[2017-08-20] MEDS: LISINOPRIL 5 MG TAB PO SCH (08:10)
[2017-08-20] MEDS: FUROSEMIDE 20 MG TAB PO SCH (08:10)
[2017-08-20] MEDS: CLOPIDOGREL 75 MG TAB PO SCH (08:10)
[2017-08-20] MEDS: HYDROmorphone 0.5 MG/0.5 ML SYRINGE IVP PRN (08:15)
--- NOTE | 2017-08-20 10:03 | P.PN ---
Subjective Progress Note Date: 08/20/17 76-year-old male who presents to emergency room on 08/16/2017 after being seen by Dr. Garcia in the wound care center for chronic left heel wound. The patient has had a wound to left feel for many months and has been following outpatient in the wound care center. His primary care physician is Dr. Velasquez. The patient was evaluated yesterday by Dr. Garcia and his wound was found to be very malodorous and did not appear to be improving. Earlier in the week, home care nursing notified Dr. Velasquez of patients wound and he was supposed to be admitted to the hospital at that time but refused. Dr. Garcia sent the patient to the emergency room for further evaluation and admission to the hospital. In the emergency room, an x-ray of the left foot was completed which was negative for acute osseous lesion, but did show evidence of soft tissue air suggesting infection and generalized osteopenia likely on the basis of osteoporosis. He also complained of left rib pain and stated he sustained a fall last week at home and has had pain since that time. A x-ray was completed which revealed COPD but did not show evidence of a displaced rib fracture. Laboratory studies reveal white count of 17.8, hemoglobin of 6.7, platelet count 329, INR 1.2, sodium 133, potassium 3.7. BUN 15. Creatinine 0.90. Lactic acid 1.7. Alkaline phosphatase 141. C-reactive protein 155. Stool for occult blood was negative. The patient has a history of diabetes mellitus, neuropathy, chronic back pain, coronary artery disease with stent placement to the LAD on 05/08/2017 and a second stent to the proximal LAD on 05/25/2017, and depression. He admits to drinking at least 3 beers per day. His most recent echocardiogram was completed in May 2017 which revealed moderate global hypokinesis of left ventricle, ejection fraction of 20-25%, mild mitral regurgitation, mild tricuspid regurgitation, mild pulmonary hypertension, and moderate aortic stenosis. He was admitted to the hospital under the care of Dr. Velasquez. Consultations have been placed to infectious disease and vascular surgery. 08/17/2017 His blood pressure remains stable with a last reading of 135/65. He was febrile overnight with a temperature of 101.3 F. This morning his temperature is 98.6. He is on room air with oxygen saturations greater than 92%. He denies shortness of breath or chest pain. Denies nausea or vomiting. He remains on ankle myosin and Zosyn. Left foot wound cultures are currently pending. 08/18/2017-Notes per covering provider 08/19/2017-Notes per covering provider 08/20/2017 Patient seen and examined at the bedside. Patient underwent left above-the- knee amputation on 08/18/[address] Grace. The patient states his pain is tolerable at this time. He states it is "sore" at the surgical site. Per nursing, the Percocet seems to be helping the patient's pain more than the Dilaudid which makes him nauseous. His breakfast is at the bedside but he states he does not have an appetite and does not like the hospital food. He denies chest pain or shortness of breath. His blood pressure is slightly elevated this morning with a reading of 164/96 which may be secondary to pain. His white count is down to 8.3. His potassium this morning is 3.1. Spoke to the patient regarding subacute rehab. He is not sure if he wants to go to subacute rehab. Explained the importance of working with physical therapy and learning to maneuver after amputation. Patient states he is agreeable to work with PT today and will think about ECF at the time of discharge. Objective - Vital Signs Vital signs: Vital Signs Temp 97.8 F 08/20/17 07:50 Pulse 88 08/20/17 07:59 Resp 16 08/20/17 07:59 BP 164/96 08/20/17 07:50 Pulse Ox 95 08/20/17 07:50 Intake & Output 08/19/17 08/20/17 08/20/17 18:59 06:59 18:59 Intake Total 320 540 0 Output Total 1250 1000 200 Balance -930 -460 -200 Weight 61.5 kg Intake: IV 50 Piperacillin-Tazobactam 3 50 .375 gm In Dextrose/Water 1 50ml.bag @ 12.5 mls/hr IVPB Q8H [facility] Rx#: [id number] Intake, IV Titration 490 Amount Sodium Chloride 0.9% 1, 240 000 ml @ 80 mls/hr IV . [id number] [facility] Rx#:[id number] Vancomycin 1,500 mg In 250 Sodium Chloride 0.9% 250 ml @ 125 mls/hr IVPB Q12H [facility] Rx#:[id number] Oral 320 0 Output: Urine 1250 1000 200 Uretheral (Row[place]) 200 200 Other: Voiding Method Indwelling Catheter Indwelling Catheter - Exam GENERAL: This is a 76-year-old in no apparent distress at the time of examination, but does not make eye contact during examination and has very little to say to provider. HEENT: Head is atraumatic, normocephalic. Pupils are equal, round, and reactive to light. Sclerae anicteric. Conjunctivae are clear. Mucus membranes of the mouth are moist. Neck is supple. RESPIRATORY: Clear to ausculation. No wheezes, rales, or rhonchi. No use of accessory muscles. Patient maintaining oxygen saturation greater than 92%. Mild tenderness noted upon palpation of left lower chest wall. CARDIOVASCULAR: Regular rate and rhythm. S1 and S2 noted. No JVD noted. No S3 or S4 noted. GASTROINTESTINAL: No distention noted. Abdomen soft and round. Normal active bowel sounds auscultated x 4 quadrants. No pain or tenderness noted upon palpation. INTEGUMENTARY: Dressing noted to left stump site. No drainage noted. No erythema or edema noted. No cyanosis. No jaundice. No rashes noted. EXTREMITIES: Left [id number] amputation with dressing noted. Right lower extremity without edema. NEUROLOGIC: Cranial nerves II-XII intact. PSYCHIATRIC: Awake, alert, and oriented X 3. Flat affect - Labs CBC & Chem 7: 08/20/17 06:30 08/20/17 06:30 Labs: Abnormal Lab Results - Last 24 Hours (Table) 08/19/17 08/19/17 08/19/17 Range/Units 11:44 16:17 20:39 RBC (4.30-5.90) m/uL Hgb (13.0-17.5) gm/dL Hct (39.0-53.0) % MCHC (31.0-37.0) g/dL RDW (11.5-15.5) % Lymphocytes # (1.0-4.8) k/uL Potassium (3.5-5.1) mmol/L Glucose (74-99) mg/dL POC Glucose (mg/dL) 125 H 161 H 131 H (75-99) mg/dL 08/20/17 08/20/17 08/20/17 Range/Units 06:30 06:30 06:32 RBC 3.58 L (4.30-5.90) m/uL Hgb 9.4 L (13.0-17.5) gm/dL Hct 30.8 L (39.0-53.0) % MCHC 30.5 L (31.0-37.0) g/dL RDW 15.9 H (11.5-15.5) % Lymphocytes # 0.6 L (1.0-4.8) k/uL Potassium 3.1 L (3.5-5.1) mmol/L Glucose 117 H (74-99) mg/dL POC Glucose (mg/dL) 117 H (75-99) mg/dL Microbiology - Last 24 Hours (Table) 08/16/17 15:35 Blood Culture - Preliminary Blood No Growth after 72 hours Assessment and Plan Plan: ASSESSMENT: 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 , s/p left above the knee amputation on 08/18/2017 secondary to gangrene Normocytic hypochromic anemia, hgb 6.7 on admission, previous hgb 9.4, stool for occult blood negative, no evidence of acute blood loss, stable at this time Recent fall from standing at home with subsequent left lower chest wall tenderness, x-ray negative for rib fracture, likely rib contusion Febrile illness and leukocytosis, secondary to gangrenous left foot, resolved Sepsis secondary to gangrenous left foot, improving Coronary artery disease with previous stent placement to LAD x 2 Chronic systolic congestive heart failure, most recent echocardiogram reveals ejection fraction of 25-30% Chronic alcohol use, patient drinks minimum of 3 beers a day Diabetes mellitus, type II, hemoglobin A1c pending Essential hypertension Moderate to severe aortic stenosis Osteoarthritis Hypokalemia PLAN: -Dr. Grace on consult. Appreciate recommendations and input -Infectious disease on consult. Appreciate recommendations and input -Antibiotic regimen per ID. Currently on vancomycin and Zosyn -Continue dressing changes -Increase frequency of Percocet to every 6 hours for pain -Replace potassium per protocol -Begin K-Dur 10 mEq daily scheduled -Monitor hemoglobin -Capillary blood glucose Accu-Cheks before meals and at bedtime -NovoLog sliding scale coverage before meals and at bedtime -Discontinue urinary catheter -Home meds as appropriate -Monitor labs -GI prophylaxis: Protonix 40 mg by mouth daily -DVT prophylaxis: Venodyne's to right lower extremity -Monitor vital signs and address as appropriate -Discharge planning: Patient will require subacute rehab -PT/OT -Consult Dr. Dennis for possible ecf at [facility] -Further recommendations pending patient's course -Anticipate discharge to ECF tomorrow if patient remains stable Nurse practitioner note has been reviewed by physician. Signing provider agrees with the documented findings, assessment, and plan of care.
[2017-08-20] MEDS: SODIUM CHLORIDE 0.9% 1,000 ML IV SCH ×2 (10:19→23:35)
[2017-08-20] MEDS: POTASSIUM CHLORIDE ER 20 MEQ TAB.ER PO SCH ×2 (10:19→11:38)
--- NOTE | 2017-08-20 10:50 | P.CONS ---
History of Present Illness - Chief Complaint Medical debility - History of Present Illness I had the op to see patient for inpatient rehab consultation with regard to medical debility. He was admitted to [facility] August 16 with increasing left heel diabetic alone. By Dr. Farfan for infectious disease. Seen by Dr. Chan who knows cardiomyopathy of 20-25% ejection fraction. Seen by Dr. Grace who did perform left AKA on August 18. He and OT prescribed. PT unable to start due to pain. Workup includes chest x-rays demonstrated COPD. Rib x-rays negative for fractures. Foot x-ray demonstrated osteopenia and signs of infection. Should note that patient reports 2 recent MIs. Unsure of his reliability though. Previous functional history as elicited patient: 76-year-old right-handed white male who is single lives in a third-floor apartment, alone, elevator. Daughter does the cooking and laundry. Son-in-law assist patient with dress and sitdown shower. Uses wheelchair for mobility. No a more recent stay at [facility] in fact may have come from [facility]. Regular doctors Dr. Velasquez. Family history of [place] in father. Review of Systems Review of systems: ENT: Denies sneezes or discharge. Eyes: Denies discharge or photophobia. Cardiac: Denies chest pain or palpitation. Pulmonary: Denies cough or shortness of breath. Gastrointestinal: Denies nausea, emesis, constipation, diarrhea. Genitourinary: Denies discharge or frequency. Musculoskeletal: Discomfort in left leg or stump. Neurologic: At least mild generalized weakness. Endocrine: Denies shakes or sweats. Oncology: Denies cancers. Dermatologic: Denies rash, itching, pruritus. ALLERGY/immunology: Denies sneezes, rashes. Past Medical History Past Medical History: Diabetes Mellitus Additional Past Medical History / Comment(s): Diabetic neuropathy chronic back pain Last Myocardial Infarction Date:: 05/08/2017 History of Any Multi-Drug Resistant Organisms: None Reported Past Surgical History: Back Surgery, Heart Catheterization With Stent Additional Past Surgical History / Comment(s): bilateral cataract removal with implants, right foot surgery, stent to LAD 05/08 Past Anesthesia/Blood Transfusion Reactions: No Reported Reaction Date of Last Stent Placement:: 05/08/2017 Past Psychological History: No Psychological Hx Reported, Depression Smoking Status: Never smoker Past Alcohol Use History: Daily Additional Past Alcohol Use History / Comment(s): Patient lives at home alone. Daughter and son-in-law check on him. Daughter has a cat in the home. He drinks 3-4 beers per day. He denies any medical marijuana, marijuana, street drug use. He has worked for [employer] and retired. He denies any service. He denies any recent travel. Past Drug Use History: None Reported - Past Family History Mother Family Medical History: No Reported History Father Family Medical History: Cancer Sister(s) Family Medical History: Cancer Medications and Allergies Home Medications Medication Instructions Recorded Confirmed Type metFORMIN HCL [Glucophage] 500 mg PO BID 12/08/16 08/16/17 History Atorvastatin [Lipitor] 80 mg PO HS tab 05/11/17 08/16/17 Rx Fluticasone Nasal [place] [Flonase 2 spray EA NOSTRIL DAILY PRN spray 05/11/17 Rx Nasal [place]] oxyCODONE-APAP 10-325MG [Percocet 1 tab PO Q8H PRN #30 tab 05/29/17 08/16/17 Rx 10-325 mg] Aspirin 81 mg PO W/SUPPER 07/09/17 08/16/17 History Clopidogrel [Plavix] 75 mg PO QAM 07/09/17 08/16/17 History Collagenase [Santyl] 1 applic TOPICAL DAILY 07/09/17 08/16/17 History DULoxetine HCL [Cymbalta] 60 mg PO W/SUPPER 07/09/17 08/16/17 History Furosemide [Lasix] 20 mg PO DAILY 07/09/17 08/16/17 History Ipratropium-Albuterol Nebulize 3 ml INHALATION RT-QID PRN 07/09/17 08/16/17 History [Duoneb 0.5 mg-3 mg/3 ml Soln] Lisinopril [Prinivil] 5 mg PO BID 07/09/17 08/16/17 History Metoprolol Tartrate [Lopressor] 25 mg PO BID 07/09/17 08/16/17 History Multivitamins, Thera [Multivitamin 1 tab PO W/SUPPER 07/09/17 08/16/17 History (formulary)] Nitroglycerin Sl Tabs [Nitrostat] 0.4 mg SUBLINGUAL Q5M PRN 07/09/17 08/16/17 History Pantoprazole [Protonix] 40 mg PO QAM 07/09/17 08/16/17 History Thiamine [Vitamin B-1] 100 mg PO BID 07/09/17 08/16/17 History Allergies Allergy/AdvReac Type Severity Reaction Status Date / Time No Known Allergies Allergy Verified 08/16/17 15:32 Physical Exam Vitals: Vital Signs Temp Pulse Resp BP Pulse Ox 08/20/17 07:59 88 16 08/20/17 07:50 97.8 F 88 16 164/96 95 08/20/17 04:00 97.6 F 82 17 155/79 98 08/19/17 23:47 97.8 F 68 18 154/74 97 08/19/17 20:00 97.9 F 92 16 130/70 97 08/19/17 16:00 98.3 F 95 16 178/85 95 08/19/17 12:00 97.7 F 75 16 149/70 98 Intake and Output 08/19/17 08/20/17 08/20/17 22:59 06:59 14:59 Intake Total 540 0 Output Total 1400 850 200 Balance -1400 -310 -200 Intake: IV 50 Piperacillin-Tazobactam 3 50 .375 gm In Dextrose/Water 1 50ml.bag @ 12.5 mls/hr IVPB Q8H [facility] Rx#: [id number] Intake, IV Titration 490 Amount Sodium Chloride 0.9% 1, 240 000 ml @ 80 mls/hr IV . [id number] [facility] Rx#:[id number] Vancomycin 1,500 mg In 250 Sodium Chloride 0.9% 250 ml @ 125 mls/hr IVPB Q12H [facility] Rx#:[id number] Oral 0 Output: Urine 1400 850 200 Uretheral ([place]) 200 200 Other: Voiding Method Indwelling Catheter Indwelling Catheter Weight 61.5 kg Skin: Atrophic but intact. General: Thin build and comfortable appearance. Head: Normocephalic, atraumatic. Eyes: Symmetric. Pupils equal round. Ears: Symmetric. Hearing within normal limits. Mouth: Clear. Neck: Supple. Carotid without bruit. Cardiac: Regular rate and rhythm. Lungs: Clear anteriorly and posteriorly. Abdomen: Soft active nontender. Extremities: Normal tone. Stay noted both hands and right foot. Left leg significant for recent AKA, currently clean and dressed. Neurological: Mental status: Alert, cooperative, pleasant. Cranial nerves: Symmetric facial tone and trapezius. Motor: Active movement in all limbs but more vigorously and right arm is at least antigravity in less than antigravity left arm and right leg. Left leg significant for obvious significant giveaway weakness. Sensation: Intact throughout. DTRs: Absent throughout. Mobility: Would require obvious assistance for bed mobility. Results CBC & Chem 7: 08/20/17 06:30 08/20/17 06:30 Labs: Abnormal Lab Results - Last 24 Hours (Table) 08/19/17 08/19/17 08/19/17 Range/Units 11:44 16:17 20:39 RBC (4.30-5.90) m/uL Hgb (13.0-17.5) gm/dL Hct (39.0-53.0) % MCHC (31.0-37.0) g/dL RDW (11.5-15.5) % Lymphocytes # (1.0-4.8) k/uL Potassium (3.5-5.1) mmol/L Glucose (74-99) mg/dL POC Glucose (mg/dL) 125 H 161 H 131 H (75-99) mg/dL 08/20/17 08/20/17 08/20/17 Range/Units 06:30 06:30 06:32 RBC 3.58 L (4.30-5.90) m/uL Hgb 9.4 L (13.0-17.5) gm/dL Hct 30.8 L (39.0-53.0) % MCHC 30.5 L (31.0-37.0) g/dL RDW 15.9 H (11.5-15.5) % Lymphocytes # 0.6 L (1.0-4.8) k/uL Potassium 3.1 L (3.5-5.1) mmol/L Glucose 117 H (74-99) mg/dL POC Glucose (mg/dL) 117 H (75-99) mg/dL Microbiology - Last 24 Hours (Table) 08/16/17 15:35 Blood Culture - Preliminary Blood No Growth after 72 hours Chest x-ray: report reviewed (Consistent with COPD. Ribs negative for fracture. ) Assessment and Plan (1) Gangrene of left foot Current Visit: Yes Status: Acute Code(s): I96 - GANGRENE, NOT ELSEWHERE CLASSIFIED SNOMED Code(s): 11974505862738787 Plan: Miranda: 1. Medical debility. 2. New left AKA due to gangrene left foot. 3. Patient reports 2 recent MIs 4. Diabetes. Comments and plan: PT and OT ordered. Rehab prognosis however guarded to stand. Patient may have come from [facility] and recommend return to [facility].
[2017-08-20] MEDS ORDERED: BISACODYL 10 MG SUPP RECTAL PRN (10:55)
[2017-08-20] MEDS ORDERED: VANCOMYCIN TROUGH DUE 1 EACH MISC MISCELLANE ONE (11:00)
[2017-08-20] MEDS ORDERED: LISINOPRIL 5 MG TAB PO ONE (11:00)
--- NOTE | 2017-08-20 11:16 | PN ---
PROGRESS NOTE Mr. Borjas is a 76-year-old male with known history of coronary artery disease, status post percutaneous revascularization, severe peripheral vascular disease, ischemic cardiomyopathy who presented with gangrene of the foot and underwent amputation [id number] on the left side. He is complaining of abdominal discomfort, but no chest discomfort. His breathing has been stable. He denies any dizziness or palpitation. He denies any nausea. He continues to be at this time on aspirin once a day, Lipitor 80 mg daily, Plavix 75 mg daily, Lasix 20 mg daily, lisinopril 5 mg twice a day, metformin 500 mg twice a day, metoprolol tartrate 25 mg twice a day. Potassium supplement. PHYSICAL EXAMINATION: Blood pressure running in the 150s with a heart rate in the 80s. LUNGS: Clear. HEART: Regular rate and rhythm. S1, S2. No S3 with systolic murmur. No diastolic murmur. ABDOMEN: Soft, nontender. EXTREMITIES: Right lower extremity no edema. LAB DATA: Lab data revealed BUN creatinine 11 and 0.94. IMPRESSION: 1. Status post left gukxm-[id number]-dftx amputation for gangrene. 2. History of coronary artery disease, status post percutaneous revascularization. 3. Ischemic cardiomyopathy. 4. Hypertension. 5. Hyperlipidemia. 6. Diabetes mellitus. RECOMMENDATION: From the cardiac standpoint, I will increase the dose of his lisinopril to 10 mg twice a day to optimize his blood pressure control. Continue the rest of his medical regimen. MMODL / IJN: [id number] /
[2017-08-20 11:25] LABS: Glucose,Whole Blood 131 mg/dL (75-99)
[2017-08-20] MEDS: SENNOSIDES-DOCUSATE SODIUM 1 EACH TAB PO SCH ×2 (11:31→20:25)
[2017-08-20] MEDS: POLYETHYLENE GLYCOL 3350 17 GM POWD.PACK PO SCH (11:32)
[2017-08-20] MEDS ORDERED: VANCOMYCIN IV PER PHARMACY 1 EACH MISC MISCELLANE PRN (11:34)
[2017-08-20 12:42] LABS: Glucose,Whole Blood 152 mg/dL (75-99)
[2017-08-20 13:41] VITALS: BMI 17.4
[2017-08-20] MEDS: MULTIVITAMINS, THERA 1 EACH TAB PO SCH (16:06)
[2017-08-20] MEDS: DULoxetine HCL 60 MG CAPSULE.DR PO SCH (16:06)
[2017-08-20] MEDS: ASPIRIN 81 MG PO SCH (16:06)
[2017-08-20 16:27] LABS: Glucose,Whole Blood 129 mg/dL (75-99)
--- NOTE | 2017-08-20 18:20 | PN ---
PROGRESS NOTE This gentleman had a gangrene of the left foot before he went for left above knee amputation. Today we have changed the dressing. Stump site looks clean and healing. Dressing has been changed. [facility] and we will follow in my office on next Sunday and will follow with you. CHATA / EVELIA: [id number] /
[2017-08-20 20:01] LABS: Glucose,Whole Blood 124 mg/dL (75-99)
--- NOTE | 2017-08-20 20:18 | P.PN ---
Subjective Progress Note Date: 08/20/17 Principal diagnosis: Gangrene left foot This is a 76-year-old male patient who is a long-standing history of a nonhealing wound to the left heel. He was at [facility] and receiving wound care from Dr. Garcia but went home about one month ago. He has been following in the wound healing center with Dr. Garcia and his most recent visit was on August 16 and there was significant worsening of his wound and he was sent to be clear in [facility] in Hospital emergency center for evaluation. Information from the nursing staff is that patient has been noncompliant with home care and is actually canceled bone care and has refused to have his dressing changed at home. Patient presented with a white count of 17.8, hemoglobin 6.7, lactic acid was 1.7. Troponin 1.3. Patient was started on vancomycin and Zosyn and admitted to the selective care unit. He has been seen in consultation by Dr. Grace with plan for amputation as patient has bone exposed with necrotic tissue. Wound culture is showing rare polys or for nuclear leukocytes, many gram-negative bacilli, few gram-positive cocci with multiple morphologies present. Sed rate is 114, CRP 155. Recent pre-albumin done in July is less than 5, hemoglobin A1c 6.1. Patient now status post a left lvswh-qjz-bewn amputation. Is improved today. Eating his meal without difficulties. Does have some mild ongoing confusion Objective - Vital Signs Vital signs: Vital Signs Temp 98.2 F 08/20/17 15:00 Pulse 75 08/20/17 15:00 Resp 16 08/20/17 15:00 BP 151/67 08/20/17 15:00 Pulse Ox 97 08/20/17 15:00 Intake & Output 08/20/17 08/20/17 08/21/17 06:59 18:59 06:59 Intake Total 540 690 Output Total 1000 200 Balance -460 490 Weight 61.5 kg 61.5 kg Intake: IV 50 50 Piperacillin-Tazobactam 3 50 50 .375 gm In Dextrose/Water 1 50ml.bag @ 12.5 mls/hr IVPB Q8H [facility] Rx#: [id number] Intake, IV Titration 490 640 Amount Sodium Chloride 0.9% 1, 240 640 000 ml @ 80 mls/hr IV . [id number] [facility] Rx#:[id number] Vancomycin 1,500 mg In 250 Sodium Chloride 0.9% 250 ml @ 125 mls/hr IVPB Q12H [facility] Rx#:[id number] Oral 0 Output: Urine 1000 200 Uretheral ([place]) 200 200 Other: Voiding Method Indwelling Catheter - Exam Gen: This is a 76-year-old male. Supine and comfortable after surgery HEENT: Head is atraumatic, normocephalic. Pupils equal, round. Sclerae is anicteric. NECK: Supple. No JVD. No lymphadenopathy. No thyromegaly. LUNGS: Clear to auscultation. No wheezes or rhonchi. No intercostal retractions. HEART: Regular rate and rhythm. Systolic murmur. ABDOMEN: Soft. Bowel sounds are present. No masses. No tenderness. EXTREMITIES: Right lower extremity has chronic changes. Left leg is evidence of the bulky dressing in place from the [id number]-lbp-ctdb amputation. No drainage is noted. NEUROLOGICAL: Patient is awake, alert, confused but not combative - Labs CBC & Chem 7: 08/20/17 06:30 08/20/17 06:30 Labs: Abnormal Lab Results - Last 24 Hours (Table) 08/19/17 08/20/17 08/20/17 Range/Units 20:39 06:30 06:30 RBC 3.58 L (4.30-5.90) m/uL Hgb 9.4 L (13.0-17.5) gm/dL Hct 30.8 L (39.0-53.0) % MCHC 30.5 L (31.0-37.0) g/dL RDW 15.9 H (11.5-15.5) % Lymphocytes # 0.6 L (1.0-4.8) k/uL Potassium 3.1 L (3.5-5.1) mmol/L Glucose 117 H (74-99) mg/dL POC Glucose (mg/dL) 131 H (75-99) mg/dL Vancomycin Trough ug/mL 08/20/17 08/20/17 08/20/17 Range/Units 06:32 10:51 11:21 RBC (4.30-5.90) m/uL Hgb (13.0-17.5) gm/dL Hct (39.0-53.0) % MCHC (31.0-37.0) g/dL RDW (11.5-15.5) % Lymphocytes # (1.0-4.8) k/uL Potassium (3.5-5.1) mmol/L Glucose (74-99) mg/dL POC Glucose (mg/dL) 117 H 131 H (75-99) mg/dL Vancomycin Trough 40.3 H* ug/mL 08/20/17 08/20/17 08/20/17 Range/Units 12:40 16:26 19:59 RBC (4.30-5.90) m/uL Hgb (13.0-17.5) gm/dL Hct (39.0-53.0) % MCHC (31.0-37.0) g/dL RDW (11.5-15.5) % Lymphocytes # (1.0-4.8) k/uL Potassium (3.5-5.1) mmol/L Glucose (74-99) mg/dL POC Glucose (mg/dL) 152 H 129 H 124 H (75-99) mg/dL Vancomycin Trough ug/mL Microbiology - Last 24 Hours (Table) 08/16/17 15:35 Blood Culture - Preliminary Blood No Growth after 96 hours Assessment and Plan (1) Diabetic foot ulcer associated with type 2 diabetes mellitus Current Visit: Yes Status: Acute Priority: High Code(s): E11.621 - TYPE 2 DIABETES MELLITUS WITH FOOT ULCER SNOMED Code(s): 519429129 (2) Gangrene of left foot Narrative/Plan: As noted the patient has a long-standing history of ulceration to the left foot. Despite this he is now had a marked worsening with exposure of a large amount of the calcaneus, associated with gangrenous changes and radiological evidence of gas in the tissue. The patient is evaluated by vascular surgery and the case has been discussed at length with vascular surgery and the primary care service. Because of the gangrene the patient has not been taking the operating room and the above the knee amputation is performed performed. The patient's family is present in their questions are answered at this point in time to the best ability. We'll transfer to rehab at discharge. Continue antimicrobial therapy for now to ensure that any lymphatic spread of bacteria is well treated in attempts to ensure that the residual limb flap is most viable. Current Visit: Yes Status: Acute Code(s): I96 - GANGRENE, NOT ELSEWHERE CLASSIFIED SNOMED Code(s): 33418802408962066 (3) Leukocytosis Current Visit: Yes Status: Acute Code(s): D72.829 - ELEVATED WHITE BLOOD CELL COUNT, UNSPECIFIED SNOMED Code(s): 289402295
[2017-08-20] MEDS: LISINOPRIL 10 MG TAB PO SCH (20:25)
[2017-08-20] MEDS: ATORVASTATIN 80 MG TAB PO SCH (20:25)
[2017-08-21] MEDS: oxyCODONE-APAP 10-325MG 1 EACH TAB PO PRN ×3 (02:14→14:29)
[2017-08-21 07:02] LABS: Basophils % (A) 0 %; Eosinophils # (A) 0.1 k/uL (0-0.7); Eosinophils % (A) 1 %; HCT 27.7 % (39.0-53.0); HGB 8.8 gm/dL (13.0-17.5); Hypochromasia Moderate; Lymphocytes # (A) 0.9 k/uL (1.0-4.8); Lymphocytes % (A) 14 %; MCH 26.6 pg (25.0-35.0); MCHC 31.7 g/dL (31.0-37.0); Mean Platelet Volume 7.9; Monocytes # (A) 0.5 k/uL (0-1.0); Monocytes % (A) 8 %; Neutrophils # (A) 4.9 k/uL (1.3-7.7); Neutrophils % (A) 74 %; Platelet Count 307 k/uL (150-450); RDW 15.8 % (11.5-15.5); WBC 6.7 k/uL (3.8-10.6)
[2017-08-21 07:13] LABS: Glucose,Whole Blood 119 mg/dL (75-99)
[2017-08-21 07:14] LABS: Anion Gap 11 mmol/L; Blood Urea Nitrogen 15 mg/dL (9-20); Calcium 8.5 mg/dL (8.4-10.2); Carbon Dioxide 24 mmol/L (22-30); Chloride 103 mmol/L (98-107); Glucose 106 mg/dL (74-99); Potassium 3.1 mmol/L (3.5-5.1); Sodium 138 mmol/L (137-145)
[2017-08-21] MEDS: INSULIN ASPART 100 UNIT/ML 1 ML 10 ML VIAL SQ SCH ×2 (07:16→11:44)
[2017-08-21 07:19] LABS: Vancomycin,Random 29.3 ug/mL
[2017-08-21] MEDS: FUROSEMIDE 20 MG TAB PO SCH (07:37)
[2017-08-21] MEDS: SENNOSIDES-DOCUSATE SODIUM 1 EACH TAB PO SCH (07:37)
[2017-08-21] MEDS: metFORMIN 500 MG TAB PO SCH (07:37)
[2017-08-21] MEDS: PANTOPRAZOLE 40 MG TABLET PO SCH (07:37)
[2017-08-21] MEDS: THIAMINE 100 MG TAB PO SCH (07:38)
[2017-08-21] MEDS: POLYETHYLENE GLYCOL 3350 17 GM POWD.PACK PO SCH (07:38)
[2017-08-21] MEDS: METOPROLOL TARTRATE 25 MG TAB PO SCH (07:38)
[2017-08-21] MEDS: LISINOPRIL 10 MG TAB PO SCH (07:38)
[2017-08-21] MEDS: CLOPIDOGREL 75 MG TAB PO SCH (07:39)
[2017-08-21] MEDS: PIPERACILLIN-TAZOBACTAM 3.375 GM in DEXTROSE/WATER 1 50ML.BAG IVPB SCH ×2 (07:49→15:40)
[2017-08-21] MEDS ORDERED: ETOMIDATE 2 MG/ML 10 ML VIAL ONE (09:24)
[2017-08-21] MEDS ORDERED: SUCCINYLCHOLINE CHLORIDE 100 MG/5 ML SYR IV ONE (09:24)
[2017-08-21] MEDS ORDERED: fentaNYL (PF) 50 MCG/ML 2 ML AMP ONE (09:24)
[2017-08-21] MEDS ORDERED: PHENYLEPHRINE-0.9% NACL SYG 1 MG/10 ML SYRINGE ONE (09:24)
[2017-08-21 11:30] LABS: Glucose,Whole Blood 100 mg/dL (75-99)
[2017-08-21] MEDS: HYDROmorphone 0.5 MG/0.5 ML SYRINGE IVP PRN (11:36)
--- NOTE | 2017-08-21 11:39 | P.PN ---
Progress Note - Text 77-year-old gentleman, patient came with gangrene of the left foot patient had a left above-knee amputation he tolerated the procedure well stump site is healing good patient will be going to most likely tomorrow for rehab if patient goes home we will follow in the office next her stay dressing should be changed every 48 hours thank you
[2017-08-21] MEDS: MULTIVITAMINS, THERA 1 EACH TAB PO SCH (11:42)
[2017-08-21] MEDS: POTASSIUM CHLORIDE ER 20 MEQ TAB.ER PO SCH ×3 (11:42→15:41)
[2017-08-21 14:31] VITALS: BP 169/71; PULSE 84; RESP 16; TEMP 97.8
--- NOTE | 2017-08-21 15:17 | P.DS ---
Providers Date of admission: 08/16/17 18:25 Expected date of discharge: 08/21/17 Attending physician: Be Velasquez Consults: 08/16/17 18:24 Consult Physician Stat Consulting Provider: Bobby Farfan Consult Reason/Comments: Osteomyelitis Do you want consulting provider notified?: Already Contacted Consult Physician Stat Consulting Provider: Cordell Grace Consult Reason/Comments: left Foot infection, osteomyelitis Do you want consulting provider notified?: Already Contacted 08/17/17 15:02 Consult Physician Stat Consulting Provider: Tushar Chan Consult Reason/Comments: surgical clearance Do you want consulting provider notified?: Yes 08/20/17 09:24 Consult Physician Routine Consulting Provider: Silvino Dennis Consult Reason/Comments: subacute rehab Do you want consulting provider notified?: Yes Primary care physician: Be Velasquez [place] [facility] Course: 76-year-old male who presents to emergency room on 08/16/2017 after being seen by Dr. Garcia in the wound care center for chronic left heel wound. The patient has had a wound to left feel for many months and has been following outpatient in the wound care center. His primary care physician is Dr. Velasquez. The patient was evaluated yesterday by Dr. Garcia and his wound was found to be very malodorous and did not appear to be improving. Earlier in the week, home care nursing notified Dr. Velasquez of patients wound and he was supposed to be admitted to the hospital at that time but refused. Dr. Garcia sent the patient to the emergency room for further evaluation and admission to the hospital. In the emergency room, an x-ray of the left foot was completed which was negative for acute osseous lesion, but did show evidence of soft tissue air suggesting infection and generalized osteopenia likely on the basis of osteoporosis. He also complained of left rib pain and stated he sustained a fall last week at home and has had pain since that time. A x-ray was completed which revealed COPD but did not show evidence of a displaced rib fracture. Laboratory studies reveal white count of 17.8, hemoglobin of 6.7, platelet count 329, INR 1.2, sodium 133, potassium 3.7. BUN 15. Creatinine 0.90. Lactic acid 1.7. Alkaline phosphatase 141. C-reactive protein 155. Stool for occult blood was negative. The patient has a history of diabetes mellitus, neuropathy, chronic back pain, coronary artery disease with stent placement to the LAD on 05/08/2017 and a second stent to the proximal LAD on 05/25/2017, and depression. He admits to drinking at least 3 beers per day. His most recent echocardiogram was completed in May 2017 which revealed moderate global hypokinesis of left ventricle, ejection fraction of 20-25%, mild mitral regurgitation, mild tricuspid regurgitation, mild pulmonary hypertension, and moderate aortic stenosis. He was admitted to the hospital under the care of Dr. Velasquez. Consultations have been placed to infectious disease, cardiology, and vascular surgery. Infectious disease evaluated the patient during hospitalization. The patient received vancomycin and Zosyn. His wound culture was positive for Pseudomonas aeruginosa and entercoccus faecalis. Blood cultures have been negative. Patient underwent left [id number] amputation on 08/18/[address] Grace secondary to gangrene. Physical therapy has been working with the patient during hospitalization. Physical therapy recommended subacute rehab at the time of discharge. Patient has requested [facility]. The patient was deemed stable for discharge to [facility] per Dr. Velasquez. He is to follow up on an outpatient basis with Dr. Velasquez and additional consulting providers. 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/18/2017 secondary to gangrene Normocytic hypochromic anemia, hgb 6.7 on admission, previous hgb 9.4, stool for occult blood negative, no evidence of acute blood loss, stable at this time Recent fall from standing at home with subsequent left lower chest wall tenderness, x-ray negative for rib fracture, likely rib contusion Febrile illness and leukocytosis, secondary to gangrenous left foot, resolved Sepsis secondary to gangrenous left foot, improving Coronary artery disease with previous stent placement to LAD x 2 Chronic systolic congestive heart failure, most recent echocardiogram reveals ejection fraction of 25-30% Chronic alcohol use, patient drinks minimum of 3 beers a day Diabetes mellitus, type II, hemoglobin A1c pending Essential hypertension Moderate to severe aortic stenosis Osteoarthritis Hypokalemia Nurse practitioner note has been reviewed by physician. Signing provider agrees with the documented findings, assessment, and plan of care. Patient Condition at Discharge: Stable Plan - Discharge Summary Discharge Rx Participant: No New Discharge Prescriptions: New Acetaminophen Tab [Tylenol] 650 mg PO Q6HR PRN tab PRN Reason: Fever and/ or MILD Pain Bisacodyl [Dulcolax] 10 mg RECTAL DAILY PRN supp PRN Reason: Constipation Lisinopril [Zestril] 10 mg PO BID tab Polyethylene Glycol 3350 [Miralax] 17 gm PO DAILY powd.pack Sennosides-Docusate Sodium [Senokot-S] 2 each PO BID tab Continue metFORMIN HCL [Glucophage] 500 mg PO BID Atorvastatin [Lipitor] 80 mg PO HS tab Fluticasone Nasal [place] [Flonase Nasal [place]] 2 spray EA NOSTRIL DAILY PRN spray PRN Reason: Allergy Symptoms oxyCODONE-APAP 10-325MG [Percocet 10-325 mg] 1 tab PO Q8H PRN #30 tab PRN Reason: Pain Control Thiamine [Vitamin B-1] 100 mg PO BID Furosemide [Lasix] 20 mg PO DAILY Clopidogrel [Plavix] 75 mg PO QAM Aspirin 81 mg PO W/SUPPER Pantoprazole [Protonix] 40 mg PO QAM Multivitamins, Thera [Multivitamin (formulary)] 1 tab PO W/SUPPER Metoprolol Tartrate [Lopressor] 25 mg PO BID Ipratropium-Albuterol Nebulize [Duoneb 0.5 mg-3 mg/3 ml Soln] 3 ml INHALATION RT-QID PRN PRN Reason: Shortness Of Breath DULoxetine HCL [Cymbalta] 60 mg PO W/SUPPER Nitroglycerin Sl Tabs [Nitrostat] 0.4 mg SUBLINGUAL Q5M PRN PRN Reason: Chest Pain Discontinued Collagenase [Santyl] 1 applic TOPICAL DAILY Lisinopril [Prinivil] 5 mg PO BID Discharge Medication List metFORMIN HCL [Glucophage] 500 mg PO BID 12/08/16 [History] Atorvastatin [Lipitor] 80 mg PO HS tab 05/11/17 [Rx] Fluticasone Nasal [place] [Flonase Nasal [place]] 2 spray EA NOSTRIL DAILY PRN spray 05/11/17 [Rx] oxyCODONE-APAP 10-325MG [Percocet 10-325 mg] 1 tab PO Q8H PRN #30 tab 05/29/17 [ Rx] Aspirin 81 mg PO W/SUPPER 07/09/17 [History] Clopidogrel [Plavix] 75 mg PO QAM 07/09/17 [History] DULoxetine HCL [Cymbalta] 60 mg PO W/SUPPER 07/09/17 [History] Furosemide [Lasix] 20 mg PO DAILY 07/09/17 [History] Ipratropium-Albuterol Nebulize [Duoneb 0.5 mg-3 mg/3 ml Soln] 3 ml INHALATION RT -QID PRN 07/09/17 [History] Metoprolol Tartrate [Lopressor] 25 mg PO BID 07/09/17 [History] Multivitamins, Thera [Multivitamin (formulary)] 1 tab PO W/SUPPER 07/09/17 [ History] Nitroglycerin Sl Tabs [Nitrostat] 0.4 mg SUBLINGUAL Q5M PRN 07/09/17 [History] Pantoprazole [Protonix] 40 mg PO QAM 07/09/17 [History] Thiamine [Vitamin B-1] 100 mg PO BID 07/09/17 [History] Acetaminophen Tab [Tylenol] 650 mg PO Q6HR PRN tab 08/21/17 [Rx] Bisacodyl [Dulcolax] 10 mg RECTAL DAILY PRN supp 08/21/17 [Rx] Lisinopril [Zestril] 10 mg PO BID tab 08/21/17 [Rx] Polyethylene Glycol 3350 [Miralax] 17 gm PO DAILY powd.pack 08/21/17 [Rx] Sennosides-Docusate Sodium [Senokot-S] 2 each PO BID tab 08/21/17 [Rx] Follow up Appointment(s)/Referral(s): Bobby Farfan MD [STAFF PHYSICIAN] - 1 Week Cordell Grace MD [STAFF PHYSICIAN] - 1 Week Tushar Chan MD [STAFF PHYSICIAN] - 1 Week Be Velasquez DO [Primary Care Provider] - 1 Week Activity/Diet/Wound Care/Special Instructions: Diabetic diet/ heart healthy diet Activity as tolerated Dressing changes Q48 hours
[2017-08-21 17:03] LABS: Glucose,Whole Blood 133 mg/dL (75-99)
[2017-08-22] MEDS ORDERED: POTASSIUM CHLORIDE ER 10 MEQ TAB.ER.PRT PO SCH (09:00)
== END 2017-08-21 18:15 | DRG 853 ==
LOC: EC 13:16 → 6SEL 18:25 → 5MS5E 08-20 11:55
PROVIDERS: ADMIT Family Medicine; ATTEND Family Medicine
PROC: 0Y6D0Z3 Detachment at Left Upper Leg, Low, Open Approach (ICD-10-PCS; principal; 2017-08-16)
DX: A41.9 Sepsis, unspecified organism (principal); E43 Unspecified severe protein-calorie malnutrition; E11.52 Type 2 diabetes mellitus with diabetic peripheral angiopathy with gangrene; E11.41 Type 2 diabetes mellitus with diabetic mononeuropathy; D64.9 Anemia, unspecified; S20.212A Contusion of left front wall of thorax, initial encounter; I50.22 Chronic systolic (congestive) heart failure; L97.429 Non-pressure chronic ulcer of left heel and midfoot with unspecified severity; M86.9 Osteomyelitis, unspecified; E11.621 Type 2 diabetes mellitus with foot ulcer; E11.69 Type 2 diabetes mellitus with other specified complication; E78.5 Hyperlipidemia, unspecified; E87.6 Hypokalemia; F10.10 Alcohol abuse, uncomplicated; I08.3 Combined rheumatic disorders of mitral, aortic and tricuspid valves; I11.0 Hypertensive heart disease with heart failure; I25.10 Atherosclerotic heart disease of native coronary artery without angina pectoris; I25.2 Old myocardial infarction; I25.5 Ischemic cardiomyopathy; I27.20 Pulmonary hypertension, unspecified; I49.3 Ventricular premature depolarization; J44.9 Chronic obstructive pulmonary disease, unspecified; L97.509 Non-pressure chronic ulcer of other part of unspecified foot with unspecified severity; M19.90 Unspecified osteoarthritis, unspecified site; M81.0 Age-related osteoporosis without current pathological fracture; W19.XXXA Unspecified fall, initial encounter; Z79.02 Long term (current) use of antithrombotics/antiplatelets; Z79.82 Long term (current) use of aspirin; Z79.84 Long term (current) use of oral hypoglycemic drugs; Z79.899 Other long term (current) drug therapy; Z82.49 Family history of ischemic heart disease and other diseases of the circulatory system; Z91.81 History of falling; Z95.5 Presence of coronary angioplasty implant and graft; Z99.3 Dependence on wheelchair; Z79.51 Long term (current) use of inhaled steroids
CPT/HCPCS: 36415; 80048; 80053; 80202; 81003; 82272; 83036; 83605; 85025; 85027; 85610; 85652; 85730; 86140; 86850; 86900; 86901; 86920; 87040; 87070; 87077; 87186; 87205; 93005; 96365; 96366; 96367; 99212; 99284